=== PATIENT | male | born 1950 | race Caucasian/White ===

== ENCOUNTER → 2020-01-31 09:35 | Outpatient (BNVA) | payer MEDICARE, SELFPAY | PROVIDERS: PCP Nurse Practitioner Family; Visit Provider Surgery | DX: N62 Hypertrophy of breast (principal) | CPT/HCPCS: 99212 ==

== ENCOUNTER 2020-05-31 12:32 | Outpatient (REF) | payer MEDICARE, SELFPAY ==
--- NOTE | ~2020-05-31 | CT_ITS ---
EXAMINATION: CT CHEST SCREENING CLINICAL INFORMATION: Nicotine dependence COMPARISON: CT chest 10/24/2019 TECHNIQUE: Multidetector volumetric CT imaging of the chest is performed without contrast using low dose technique. Additional 2D coronal and sagittal reformatted images and axial 3D maximum intensity projection (MIP) images are generated on the CT workstation. This CT examination was performed using dose optimization techniques as appropriate, variously including the following: *Automated exposure control *Adjustment of mA and/or kV according to patient size (this includes techniques or standardized protocols for targeted exams where dose is matched to indication/reason for exam; i.e. extremities or head) *Use of iterative reconstruction technique DLP: 48 mGy-cm FINDINGS: LUNGS: There is paraseptal emphysema with bullous changes in both lung apices. There is bilateral apical pleural and parenchymal scarring. Dense right apical scarring is same size, 2.3 x 0.8 cm, as on the previous study on axial image 7/4. There is a 1.0 cm left apical density on axial image 7/4, previously measured 5 x 10 mm. There is a 3 mm nodule right upper lobe axial image 203/6, 3 mm noncalcified nodule left upper lobe, axial image 276/6, 3 mm calcified nodule left upper lobe anteriorly, axial image 273/6, 2 mm nodule left lower lobe, axial image 327/6, 3 mm and 2 mm nodule right middle lobe, axial image 36/6, 5 mm nodule right lower lobe likely intrabronchial lesion image 324/6, 3 mm nodules right lower lobe posterior segment axial image 422/6, 2 mm nodule right lower lobe, axial image 452/6, 4 mm nodule left lower lobe, axial image 450/6 and 4 mm nodule left lower lobe lateral segment of CP angle image 519/6. There are additional small subcentimeter nodules bilaterally which are stable. MEDIASTINUM: The thyroid lobes are symmetric and normal. Central trachea and the bronchi are widely patent. Heart size and the great vessels are normal caliber. There is no pericardial effusion. No abnormal lymphadenopathy seen. PLEURA: There is no pleural effusion. No pleural mass or thickening. AXILLA: There are small bilateral axillary lymph nodes. UPPER ABDOMEN: Visualized liver, spleen, pancreas and bilateral adrenal glands are unremarkable. There is a punctate 3 mm radiopaque calculi mid pole right kidney. OSSEOUS STRUCTURES: No lytic or sclerotic process seen. CT/CT lung screen follow up IMPRESSION: Stable bilateral pulmonary nodules. Bilateral apical pleural thickening and apical scarring and apical densities are stable. No additional findings seen. ASSESSMENT: Lung-RADS category 2 Benign RECOMMENDATION: Low dose annual CT chest.
== END 2020-05-31 12:33 | disposition home or self-care (01) ==
LOC: HO.CT 12:32
PROVIDERS: PCP Nurse Practitioner Family; Visit Provider Surgery
DX: Z12.2 Encounter for screening for malignant neoplasm of respiratory organs (principal); F17.210 Nicotine dependence, cigarettes, uncomplicated
CPT/HCPCS: 71250

== ENCOUNTER 2020-11-20 12:33 | Outpatient (REF) | payer MEDICARE, SELFPAY ==
--- NOTE | ~2020-11-20 | US_ITS ---
EXAMINATION: US SOFT TISSUE NECK CLINICAL INFORMATION: Enlarged lymph nodes. COMPARISON: None TECHNIQUE: Routine ultrasound of the neck was performed to evaluate lymph nodes. FINDINGS: There are multiple bilateral neck lymph nodes. The largest lymph node in the right upper neck measures 1.1 x 0.5 x 0.9 cm and in the left upper neck measures 1.64 x 0.5 x 0.7 cm. US/US soft tiss head and/or neck IMPRESSION: Bilateral multiple neck lymph nodes with a short axis dimension, within normal limits.
== END 2020-11-20 12:34 | disposition home or self-care (01) ==
LOC: HO.US 12:33
PROVIDERS: PCP Nurse Practitioner Family; Visit Provider Nurse Practitioner Family
DX: R59.9 Enlarged lymph nodes, unspecified (principal)
CPT/HCPCS: 76536

== ENCOUNTER 2021-03-07 07:00 | Outpatient (REF) | payer MEDICARE, SELFPAY ==
[2021-03-07 11:18] LABS: Appearance Urine CLEAR; Color Urine YELLOW; Glucose Urine UA NEG (NEG); Leukocyte Esterase Urine NEG (NEG); Nitrite Urine NEG (NEG); Specific Gravity - Urine 1.015 (1.005-1.025); UACC Culture Trigger NO; Urine Blood 2+ (NEG); Urine Ketones NEG (NEG); Urine Protein TRACE MG/DL (NEG-TRACE)
[2021-03-07 11:53] LABS: Alanine Aminotransferase 16 U/L (0-40); Albumin Level 3.9 g/dL (3.5-5.0); Alkaline Phosphatase 105 U/L (39-117); Anion Gap 7 (12-20); Aspartate Amino Transferase 15 U/L (5-37); Blood Urea Nitrogen 11 mg/dL (9-16); Calcium 8.9 mg/dL (8.4-10.2); Carbon Dioxide 31 mmol/L (22-29); Chloride 104 mmol/L (96-108); Cholesterol 108 mg/dL; Estimated Glomerular Filt Rate > 60; Glucose Fasting 85 mg/dL (60-99); HDL Cholesterol 36 mg/dL; LDL Cholesterol Calculated 59 mg/dl; Potassium 3.9 mmol/L (3.3-5.1); Sodium 138 mmol/L (135-145); Total Protein 6.3 g/dL (6.5-8.0); Triglycerides 69 mg/dL
[2021-03-07 11:57] LABS: Prostate Specific Antigen Scr 0.61 ng/mL (<0.05-4.0); TSH reflex Free T4 3.78 uIU/mL (0.32-4.0)
[2021-03-07 12:11] LABS: Renal Epithelial Cells Urine TRACE /LPF; Squamous Epithelial Cell Urine TRACE /LPF; WBC Urine 0-2 /HPF (0-4)
== END 2021-03-07 07:01 | disposition home or self-care (01) ==
LOC: HO.HMGCLDS 07:00
PROVIDERS: PCP Nurse Practitioner Family; Visit Provider Nurse Practitioner Family
DX: Z12.5 Encounter for screening for malignant neoplasm of prostate (principal); E78.5 Hyperlipidemia, unspecified
CPT/HCPCS: 36415; 80053; 80061; 81001; 84153; 84443

== ENCOUNTER → 2021-03-13 08:13 | Outpatient (BNVA) | payer MEDICARE, SELFPAY | PROVIDERS: PCP Nurse Practitioner Family; Referring Provider Nurse Practitioner Family; Visit Provider Internal Medicine | DX: I49.1 Atrial premature depolarization (principal); I49.8 Other specified cardiac arrhythmias; F17.210 Nicotine dependence, cigarettes, uncomplicated | CPT/HCPCS: 93005; 99202 ==

== ENCOUNTER → 2021-03-14 10:36 | Outpatient (REF) | payer MEDICARE, SELFPAY ==
--- NOTE | 2021-03-14 10:40 | HM_ITS ---
Conclusion: 1. Patient was monitored for total period of 3 days and 18 hours 2. Baseline was normal sinus rhythm with average heart of 79 beats per minute 3. No sustained atrial fibrillation noted. 3. No significant pauses or bradycardia noted 4. Very frequent short burst of SVTs with mostly 5-7 beats of SVTs, longest of 38 seconds. 5. Total of 82,082 PACs accounting for very frequent PACs accounting for 19.6% of total burden 6. No patient reported events MTDD
== END ==
LOC: HO.CARD 10:36
PROVIDERS: Visit Provider Internal Medicine
DX: I49.8 Other specified cardiac arrhythmias (principal)
CPT/HCPCS: 93242

== ENCOUNTER 2021-03-21 11:03 | Outpatient (REF) | payer MEDICARE, SELFPAY ==
[2021-03-21 14:00] LABS: Urine Cytology See Pathology rpt
[2021-03-21 14:22] LABS: Appearance Urine CLEAR; Color Urine YELLOW; Glucose Urine UA NEG (NEG); Leukocyte Esterase Urine NEG (NEG); Nitrite Urine NEG (NEG); PH 6.5 (5.0-8.0); Specific Gravity - Urine <= 1.005 (1.005-1.025); Urine Blood 1+ (NEG); Urine Ketones NEG (NEG); Urine Protein NEG (NEG-TRACE)
[2021-03-21 14:31] LABS: RBC Urine 0-2 /HPF (0); WBC Urine 0 /HPF (0-4)
== END 2021-03-21 11:04 | disposition home or self-care (01) ==
LOC: HO.HMGCLDS 11:03
PROVIDERS: PCP Nurse Practitioner Family; Visit Provider Nurse Practitioner Family
DX: R31.29 Other microscopic hematuria (principal)
CPT/HCPCS: 81001; 87086; 88112

== ENCOUNTER → 2021-04-25 08:11 | Outpatient (REF) | payer MEDICARE, SELFPAY ==
--- NOTE | 2021-04-25 08:13 | CA_ITS ---
Transthoracic Echocardiogram Patient (Last, First, Middle): Valerio Alvarez F Gender: Male Date of : 1950 Age: 70 Procedure Date: 04/25/2021 Procedure Type: Transthoracic Echocardiogram Location: OP Height: 187.96 cm Weight: 64.41 kg BSA: 1.88 m2 Heart Rate: bpm BP: 128 / 84 mmHg Drug Safety Physician: JSOE Referring MD: Nakul Crook MD [employer] Officer: Kamari Abraham MD Symptoms: I49.8 - Other specified cardiac arrhythmias Study Quality: Fair ECG Rhythm: Sinus bradycardia with ectopic Conclusions: - 1. Low normal LV systolic function with LVEF of 50-55% with impaired relaxation filling pattern 2. Normal cardiac valvular Dopplers 3. No gross pericardial effusion Findings Left Ventricle Normal left ventricular cavity size. There is normal left ventricular wall thickness. The left ventricular systolic function is low normal. The visually estimated ejection fraction is between 50-55%. Spectral Doppler is indicative of an impaired relaxation filling pattern. E/E prime ratio is between 8 and 15 consistent with indeterminate filling pressures. Right Ventricle Normal right ventricular cavity size and systolic function. Atria The left atrium is normal in size. There is no evidence of interatrial shunt. The right atrium is normal in size. Aortic Valve Normal aortic valve structure and function. There is no aortic valve stenosis. There is no aortic valve regurgitation. Mitral Valve Normal mitral valve structure and function. There is trace mitral valve regurgitation. There is no mitral valve stenosis. Pulmonic Valve The pulmonic valve was not well visualized. Tricuspid Valve Likely normal tricuspid valve structure and function. There is trace tricuspid valve regurgitation. Tricuspid regurgitation envelope is inadequate for calculation of right ventricular systolic pressure. Great Vessels All visible segments of the aorta are normal in size. The pulmonary artery was not well visualized. Venous The inferior vena cava is normal in size and collapses greater than 50% with inspiration. Pericardium/Pleural There is no evidence of pericardial effusion. Prior Study Comparison No prior study available for comparison. Measurements 2D Linear Measurements IVSd: 0.81 0.6-0.9/0.6-1.0 cm LVIDd: 4.74 3.9-5.3/4.2-5.9 cm LVIDd Index: 2.52 2.4-3.2/2.2-3.1 cm/m2 LVIDs: 3.50 2.0-3.6 cm LVPWd: 0.89 0.7-1.1 cm Ao Root: 3.50 2.1-3.5 cm LA Diam: 2.60 2.7-3.8/3.0-4.0 cm LAIDs Index: 1.38 1.5-2.3 cm/m2 LV Mass: 166.76 67-162/88-224 g LV Mass Index: 88.70 43-95/49-115 g/m2 LVOT Diam: 2.00 3.0+(-)1.3 cm 2D Systolic Function EF 4C: 48.30 >55% EF 2C: 53.50 >55% EF BiP: 52.10 >55% Mitral Valve MV Pk E: 0.54 MV PK A: 0.75 MV Decel Time: 387.00 E/A: 0.70 E'Lateral: 7.29 E'Medial: 5.00 E/E' Med: 10.80 E/E' Lat: 7.40 PHT: 113.00 MVA PHT: 1.95 Decel [place]: 1.40 Aortic Valve AoV Pk Irwin: 1.04 AoV Mn Irwin: 0.77 AoV VTI: 0.26 AoV Pk Grad: 4.00 Aov Mn Grad: 3.00 SABRA Cont.VTI: 2.01 LVOT LVOT Pk Irwin: 0.72 LVOT Mn Irwin: 0.51 LVOT VTI: 0.16 LVOT Pk Grad: 2.00 LVOT Mn Grad: 1.00 LVOT Diam: 2.00 LVOT Area: 3.14 Diastolic Function MV Pk E: 0.54 MV Pk A: 0.75 E/A: 0.70 E'Medial: 5.00 E/E' Med: 10.80 E' Laterial: 7.29 E/E' Lat: 7.40 Right Ventricle TAPSE (mm): 18.30 TVS' Irwin: 10.30 Tricuspid Valve TR Pk Irwin: 1.00 TR Pk Grad: 4.00 RA Press: 3.00 RVSP: 7.00 Great Vessels Aorta Ao Root-2D: 3.50 2.0-3.7 cm Ao Asc: 3.20 2.1-3.4 cm Ao Arch: 3.00 Updated in Other Vendor System with Status of Final Kamari Abraham MD electronically signed on 04/26/2021 4:06:19 PM with status of Final
== END ==
LOC: HO.CARD 08:11
PROVIDERS: Visit Provider Internal Medicine
DX: I49.8 Other specified cardiac arrhythmias (principal)
CPT/HCPCS: 93306

== ENCOUNTER → 2021-05-06 12:28 | Outpatient (BNVA) | payer MEDICARE, SELFPAY | PROVIDERS: PCP Nurse Practitioner Family; Referring Provider Nurse Practitioner Family; Visit Provider Internal Medicine | DX: I49.1 Atrial premature depolarization (principal); I49.8 Other specified cardiac arrhythmias; F17.200 Nicotine dependence, unspecified, uncomplicated | CPT/HCPCS: 99212 ==

== ENCOUNTER → 2021-05-24 08:32 | Outpatient (BNVA) | payer MEDICARE, SELFPAY | PROVIDERS: PCP Nurse Practitioner Family | DX: R31.29 Other microscopic hematuria (principal) | CPT/HCPCS: 99202 ==

== ENCOUNTER 2021-06-13 08:38 | Outpatient (REF) | payer MEDICARE, SELFPAY ==
--- NOTE | ~2021-06-13 | US_ITS ---
EXAMINATION: US RETROPERITONEAL LIMITED (RENAL ONLY) CLINICAL INFORMATION: Other microscopic hematuria. COMPARISON: CT abdomen and pelvis 04/20/2020. Renal ultrasound 09/22/2019 and 10/12/2018. KUB 07/25/2015. Ultrasound abdomen complete 06/12/2014. TECHNIQUE: Real-time imaging of the kidneys. FINDINGS: RIGHT KIDNEY: 10.7 x 4.1 x 4.3 cm (SAG x AP x TRV). The kidney is normal in size, contour, and echogenicity. Renal cortical thickness is normal. No calculi or focal parenchymal lesions. No hydronephrosis. LEFT KIDNEY: 11.1 x 4.0 x 4.2 cm (SAG x AP x TRV). The kidney is normal in size, contour, and echogenicity. Renal cortical thickness is normal. No calculi or focal parenchymal lesions. No hydronephrosis. US/US renal BI IMPRESSION: Kidneys bilaterally are normal. No evidence of focal mass, nephrolithiasis or hydronephrosis.
== END 2021-06-13 08:39 | disposition home or self-care (01) ==
LOC: HO.US 08:38
DX: R31.29 Other microscopic hematuria (principal)
CPT/HCPCS: 76775

== ENCOUNTER → 2021-07-26 08:31 | Outpatient (BNVA) | payer MEDICARE, SELFPAY | PROVIDERS: PCP Nurse Practitioner Family | DX: R31.29 Other microscopic hematuria (principal) | CPT/HCPCS: 99212 ==

== ENCOUNTER → 2021-08-21 14:53 | Outpatient (BNVA) | payer MEDICARE, SELFPAY | PROVIDERS: PCP Nurse Practitioner Family; Visit Provider Urology | DX: C67.9 Malignant neoplasm of bladder, unspecified (principal); Z87.442 Personal history of urinary calculi | CPT/HCPCS: 52000; 99212 ==

== ENCOUNTER 2021-08-27 07:54 | Outpatient (REF) | payer MEDICARE, SELFPAY ==
--- NOTE | ~2021-08-27 | CT_ITS ---
EXAMINATION: CT ABDOMEN AND PELVIS WITHOUT AND WITH CONTRAST CLINICAL INFORMATION: Gross hematuria. COMPARISON: None. TECHNIQUE: Noncontrast CT of the abdomen and pelvis is performed followed by split bolus contrast-enhanced images using 85 mL Omnipaque 350 contrast.? Postcontrast imaging is performed during the combined nephrogram and excretion phase. Sagittal and coronal reformatted images were obtained on the technologist's workstation for both the precontrast and postcontrast phases. This CT examination was performed using dose optimization techniques as appropriate, variously including the following: *Automated exposure control *Adjustment of mA and/or kV according to patient size (this includes techniques or standardized protocols for targeted exams where dose is matched to indication/reason for exam; i.e. extremities or head) *Use of iterative reconstruction technique DLP: 490 mGy-cm FINDINGS: LUNG BASES: The lung bases are clear. LIVER, GALLBLADDER, AND BILIARY TREE: The liver is normal in size, shape, and attenuation. No focal hepatic lesion or biliary ductal dilatation is present. The gallbladder is unremarkable with no evidence of radiopaque gallstones, gallbladder wall thickening, or obvious pericholecystic inflammatory changes. PANCREAS: Unremarkable. SPLEEN: Unremarkable. ADRENAL GLANDS: Unremarkable. KIDNEYS AND URETERS: On the non-contrast CT exam there is a 0.25 cm radiopaque calculi upper midpole right kidney. No additional radiopaque calculi seen. Postcontrast there are bilateral symmetrical nephrograms with normal cortical thickness. No cysts, enhancing solid mass seen. There is good opacification of bilateral kidney pelvis and ureter from excreted contrast without an intraluminal filling defect or narrowing. The majority of the right ureter is visualized in its entire length. The left kidney pelvis mid and distal left ureter are opacified with excretory urinary contrast without distention or irregularity. BLADDER: The bladder is normal size with excreted urinary contrast opacifying part of the bladder. There is no bladder wall thickening. No radiopaque calculi. No diverticula seen. GASTROINTESTINAL TRACT: There is scattered stool and gas seen throughout the colon without distention. The small bowel loops are unremarkable. The appendix is not visualized. The stomach is nondistended. No inflammatory process or free fluid seen. ABDOMINAL WALL: No significant hernia is appreciated. LYMPH NODES: Normal. VASCULAR: There are mild atherosclerotic changes of abdominal aorta without aneurysmal dilatation. No abnormal size retroperitoneal or pelvic lymph nodes seen. PELVIC VISCERA: No free fluid. No hernia or abnormal lymphadenopathy. The prostate gland is mildly enlarged. OSSEUS STRUCTURES: There are degenerative disc changes at L1-L2 disc level with mild ventral spondylosis. No lytic or sclerotic process seen. CT/CT urogram IMPRESSION: Small 0.25 cm nonobstructive radiopaque calculi upper/mid pole right kidney. No caliectasis or hydronephrosis. Rest of the CT urogram is unremarkable. The bladder is unremarkable. Mild constipation.
[2021-08-27 08:43] LABS: Blood Urea Nitrogen 15 mg/dL (9-16); Estimated Glomerular Filt Rate > 60
[2021-08-27] MEDS: iohexoL 350 MG/ML 100 ML INFUS..BTL IV (09:42)
== END 2021-08-27 07:55 | disposition home or self-care (01) ==
LOC: HO.CT 07:54
PROVIDERS: PCP Nurse Practitioner Family; Visit Provider Urology
DX: C67.9 Malignant neoplasm of bladder, unspecified (principal); R31.0 Gross hematuria; R39.15 Urgency of urination
CPT/HCPCS: 36415; 74178; 82565; 84520; Q9967

== ENCOUNTER → 2021-09-13 08:47 | Outpatient (REF) | payer MEDICARE, SELFPAY ==
--- NOTE | ~2021-09-13 | NM_ITS ---
Exercise Myocardial perfusion study Indication: Preoperative cardiovascular risk stratification 2 evaluate for myocardial ischemia Technique: The patient was brought in for an exercise perfusion study on 09/13/2021. Patient performed exercise as per Naseem protocol and was injected 25 mCi of sestamibi was given intravenously one target HR was achieved. Images were obtained using the SPECT gamma camera interlaced with the gating device. Images were obtained in supine position. Resting perfusion study was performed on 09/16/2021. Patient was administered 25 mCi of sestamibi intravenously at rest. Images were then obtained in supine position. Images obtained with and without CT attenuation. Total DLP 76 mGy-cm. Images were processed with the software and compared side to side in short axis, horizontal long axis and vertical long axis views. Findings: The stress perfusion study showed Nonattenuated images show normal uptake of radiotracer in all segments of LV myocardium. Attenuation corrected images show minimal thinning of the distal septum of the LV myocardium. . The gated study was not performed in stress study . LV cavity is normal in size. There is no transient ischemic dilation. Resting study shows no change in perfusion pattern compared to stress perfusion study. Gating at rest reveals normal systolic wall motion with ejection fraction at 59%. The findings are consistent with normal myocardial perfusion. NM/NM cardiolite stress test Impression: 1. Normal myocardial perfusion 2. Gated LVEF is 59% 3. Transient ischemic dilatation not present Stress EKG is negative for ischemia
--- NOTE | 2021-09-13 08:52 | CA_ITS ---
Acquisition Time: 2021-09-13 09:20:35 Total Exercise Time: 00:05:01 Test Indications: Abnormal ECG Medications: ASA ATORVASTATIN Protocol: GUALBERTO Max HR: 142 BPM 95% of Pred: 148 BPM Max BP: 150/078 mmHG Max Work Load: 7.0 METS Exercise stress test with exercise 5 min 1 sec of Gualberto protocol, acheiving > 90% MPHR, with mild sob, no chest discomfort, with frequent PACs and short atrial runs, with normotensive response to exercise, without EKG changes meeting criteria for ischemia. Nuclear images pending. Test reviewed with Dr Torres. Referred By: Nakul Crook Overread By: RYLAND BAUGH
--- NOTE | 2021-09-13 08:52 | HM_ITS ---
Conclusion: 1. Patient was monitored for total period of 2 days and 20 hours 2. Baseline was normal sinus rhythm with average heart of 74 beats per minute 3. Very frequent short burst of supraventricular tachycardia, suggestive of atrial tachycardia with longest episode lasting 51 beats. 4. Total of 49,009 at 37 PACs accounting for 17.5% of total beats account for frequent PACs 5. No patient reported events MTDD
== END ==
LOC: HO.CARD 08:47
PROVIDERS: Visit Provider Internal Medicine
DX: Z01.810 Encounter for preprocedural cardiovascular examination (principal); I49.8 Other specified cardiac arrhythmias
CPT/HCPCS: 78452; 93017; 93242; A9500

== ENCOUNTER → 2021-09-18 13:19 | Outpatient (BNVA) | payer MEDICARE, SELFPAY | PROVIDERS: PCP Nurse Practitioner Family; Visit Provider Urology | DX: C67.9 Malignant neoplasm of bladder, unspecified (principal) | CPT/HCPCS: Q3014 ==

== ENCOUNTER 2021-10-07 08:27 | Day surgery (SDC) | payer MEDICARE, SELFPAY ==
[2021-10-01 14:55] VITALS: BMI 18.8
--- NOTE | 2021-10-04 12:49 | P.CONAN_ITS ---
Documented by User: Rocío Potts NP 10/04/21 12:51 HPI - Anesthesia Eval Consult details Narrative: 70yo M for TUR Bladder Tumor with gemcitabine Cardiac cleared: Preop for TURBT with Dr Benjamin on 10/07/21. Recent cardiac testing showing no afib. He does have freq PACs and short SVT runs. Low dose Metoprolol was started. Echo shows low normal EF and Nuclear stress test shows normal myocardial perfusion imaging. He may proceed with surgery with low to intermediate cardiac risk. Continue Metoprolol without interruption. Aspirin can be held if needed, restart when clear by surgeon to do so. Call/ consult cardiology if needed. [facility] Active Problems Active Problems: All Active Problems (Updated 10/04/21 @ 10:31 by Nano Bedoya RN) H/O removal of neck cyst (Acute) Abnormal EKG (Acute) Dyslipidemia (Acute) PAC (premature atrial contraction) (Acute) Atrial arrhythmia (Acute) Smoking (Acute) Microscopic hematuria (Acute) Bladder cancer (Acute) Preoperative cardiovascular examination (Acute) Renal calculi (Acute) Past Medical History Medical History CLL (chronic lymphocytic leukemia) Dyslipidemia Family history of prostate cancer Gynecomastia History of renal calculi Immunocompromised Kidney stones PAC (premature atrial contraction) Renal calculi Thyroglossal duct cyst Family History Family History Father History of prostate cancer Surgical History Surgical History H/O colonoscopy Hx of lithotripsy Social History Social History Housing: House Alcohol intake: never Patient Tobacco Use Status: Current everyday Tobacco user Cigarette Packs Per Day: 1 Cigarettes Per Day: 20.0 Smoked in Last 30 Days: Yes e-Cigarette/Vaping Use: Currently Using (sometimes ) Patient Interested in Nicotine Replacement: No Second Hand Smoke Exposure: No Are you DNR?: No Advance Directives: No Advance Directives Information Provided: Yes Nutrition Risks: No Nutritional Risk service: No Current occupational status: retired Meds Allergies Allergy/AdvReac Type Severity Reaction Status Date / Time No Known Allergies Allergy Verified 10/07/21 08:56 [No Known Allergies*] Home Medications Medication Instructions Recorded Confirmed Last Taken Type aspirin 81 mg tablet,delayed 81 mg PO DAILY 01/31/20 10/01/21 09/27/21 History release (Adult Low Dose Aspirin) multivitamin (One-A-Day Essential 1 tab PO DAILY 03/04/21 10/01/21 Unknown History tablet) Exam Exam Date and Time: October 04, 2021 1249 Height,Weight and Vital Signs: Height 6 ft 2 in Weight 66.395 kg Narrative Narrative: EKG 03/2021 sinus rhythm at 77/Min; premature atrial contractions ECHO 04/2021 Conclusions: - 1. Low normal LV systolic function with LVEF of 50-55% with? ? impaired relaxation filling pattern? 2. Normal cardiac valvular Dopplers? 3. No gross pericardial effusion ? ? /NM cardiolite stress test 09/2021 Impression: ? 1.? Normal myocardial perfusion 2.? Gated LVEF is 59% 3. Transient ischemic dilatation not present ? Stress EKG is negative for ischemia Assessment and Plan Assessment Anesthesia Assessment: Chart Reviewed Documented by User: Sorin Ceballos MD 10/07/21 09:43 PMFSH Past Medical History Medical History CLL (chronic lymphocytic leukemia) Dyslipidemia Family history of prostate cancer Gynecomastia History of renal calculi Immunocompromised Kidney stones PAC (premature atrial contraction) Renal calculi Thyroglossal duct cyst Family History Family History Father History of prostate cancer Family history of problems with anesthesia: No Surgical History Surgical History H/O colonoscopy Hx of lithotripsy History of Problems with Anesthesia: No Social History Social History Housing: House Alcohol intake: never Patient Tobacco Use Status: Current everyday Tobacco user Cigarette Packs Per Day: 1 Cigarettes Per Day: 20.0 Smoked in Last 30 Days: Yes e-Cigarette/Vaping Use: Currently Using (sometimes ) Patient Interested in Nicotine Replacement: No Second Hand Smoke Exposure: No Are you DNR?: No Advance Directives: No Advance Directives Information Provided: Yes Nutrition Risks: No Nutritional Risk service: No Current occupational status: retired Meds Allergies Allergy/AdvReac Type Severity Reaction Status Date / Time No Known Allergies Allergy Verified 10/07/21 08:56 [No Known Allergies*] Home Medications Medication Instructions Recorded Confirmed Last Taken Type aspirin 81 mg tablet,delayed 81 mg PO DAILY 01/31/20 10/01/21 09/27/21 History release (Adult Low Dose Aspirin) multivitamin (One-A-Day Essential 1 tab PO DAILY 03/04/21 10/01/21 Unknown History tablet) Exam Airway Mallampati Class: I TM Dist: >3cm Neck ROM: Full Denture: Upper and Lower Heart: rrr Lungs: clear Assessment and Plan Final Anesthetic Review Family History of Problems with Anesthesia: No History of Problems with Anesthesia: No NPO: Yes ASA Class: III Final Preanesthetic Review: No Changes in Pt Med Stat, Meds/Allgs Chart Re viewed, Consent Obtained/Reviewed and Anes Risks/Benef Reviewed Patient Risk: Intermediate Procedure Risk: Low Anesthetic Plan Anesthetic Plan: GA Disposition: Standard PACU
[2021-10-07] VITALS (9 sets, daily range): BP systolic 131–151; BP diastolic 72–84; PULSE 44–61; RESP 18–20; TEMP 36.4–36.7; O2SAT 96–100
[2021-10-07] MEDS: Lactated Ringers 1,000 ML 100 ML IVCONT (09:00)
[2021-10-07 09:04] LABS: Hematocrit 47.2 % (42.0-52.0); Hemoglobin 15.1 g/dl (14.0-18.0); Mean Corpuscular Hemoglobin 31.7 pg (27.0-33.0); Mean Corpuscular Volume 99.2 fL (80.0-98.0); Mean Platelet Volume 9.2 fL (9.4-12.4); Platelet Count 257 X10*3/uL (160-400); Red Blood Count 4.76 X10*6/uL (4.60-5.80); Red Cell Distribution Width 12.8 % (11.0-16.0); White Blood Count 22.2 X10*3/uL (4.8-10.8)
[2021-10-07 09:28] LABS: Anion Gap 14 (12-20); Blood Urea Nitrogen 13 mg/dL (9-16); Calcium 9.1 mg/dL (8.4-10.2); Carbon Dioxide 28 mmol/L (22-29); Chloride 103 mmol/L (96-108); Creatinine Clr Calc Pharmacy 63.9; Estimated Glomerular Filt Rate > 60; Glucose Fasting 97 mg/dL (60-99); Potassium 4.2 mmol/L (3.3-5.1); Sodium 141 mmol/L (135-145)
--- NOTE | 2021-10-07 12:13 | MHC.SHP ---
Pre-Procedural Eval Section A Date of Service: 10/07/21 The patient is an INPATIENT: No Changes since office visit: No Cold of Flu in the past 2 weeks, No New Medical Problems, No Changes in Medication and No Patient answered all questions The History & Physical has been completed within 30 days and I have reviewed it.: No Section B Chief Complaint: Malignant neoplasm of bladder, Details of Present Illness: TURBT with gemcitabine Allergies: Allergies Allergy/AdvReac Type Severity Reaction Status Date / Time No Known Allergies Allergy Verified 10/07/21 08:56 [No Known Allergies*] Plan I have reviewed the history and physical and performed a pertinent physical examination on my patient. No changes have occurred unless specified.
--- NOTE | 2021-10-07 12:15 | PHA.MEDREC ---
Pharmacy Consult ? Medication Reconciliation Pharmacy has reviewed the medication reconciliation completed by nursing. Tracy García, IkeD
--- NOTE | 2021-10-07 12:56 | P.OP_ITS ---
Operative Note Operative Note Date of Service: 10/07/21 Narrative: PreOperative Diagnosis: bladder cancer Post Operative Diagnosis: bladder cancer Procedure: TURBT and Gemcitabine installation Surgeon: Dr Quentin Benjamin Anesthesia: general Indications for procedure: microscopic hematuria with cystoscopy in office that found 1.5 cm flat right bladder wall lesion and a number of satellite flat lesions. Procedure: After informed consent was verified the patient was brought to the operating room and placed in a supine position. anesthesia was administered per protocol. the patient was placed in a modified dorsal lithotomy position and prepped and draped in a sterile fashion. Safety pause time-out was performed. Antibiotics were confirmed. A 26 Tamazight continuous flow resectoscope was inserted per urethra. The visual obturator was used in order to minimize potential for urethral damage. Using the bipolar resectoscope lesion was removed from right bladder sidewall. He did have an obturator reflex which meant there was a small amount of bladder fat seen. Extensive cautery was performed over the posterior surface where supe rficial satellite changes with seen. At the completion the procedure the bladder was irrigated and tissue was removed which will be sent for analysis. At the completion of the procedure the bladder was irrigated. The cystoscope was removed. A [address] Vizcarra catheter was inserted into the bladder. 10 cc was placed in the balloon. 2 g of gemcitabine in 100 cc of normal saline was instilled into the bladder. The flow from the catheter was left clamped. The inflow to the catheter was attached to a 3 L normal saline bag. The patient tolerated the procedure well. They were extubated in the operating room and transferred in stable condition to the recovery area. Gemcitabine will remain in the bladder for 1 hour. At the completion of 1 hour the clamp will be removed. The gemcitabine will be allowed to egress to the urine collection bag. The 3 L bag of normal saline will be run at maximum rate through the bladder in order to dilute any residual gemcitabine. The Vizcarra cat heter will then be removed. Pathology: Bladder tumor Drains: Vizcarra catheter
== END 2021-10-07 15:48 ==
LOC: HO.SSS 08:28
PROVIDERS: Nurse Practitioner; PCP Nurse Practitioner Family; Visit Provider Urology
PROC: 0TBB8ZZ Excision of Bladder, Via Natural or Artificial Opening Endoscopic (ICD-10-PCS; CPT 52234; principal; 2021-10-07 10:10)
DX: C67.9 Malignant neoplasm of bladder, unspecified (principal); R31.29 Other microscopic hematuria; Z87.442 Personal history of urinary calculi; C91.10 Chronic lymphocytic leukemia of B-cell type not having achieved remission; E78.5 Hyperlipidemia, unspecified; D84.9 Immunodeficiency, unspecified; Z80.42 Family history of malignant neoplasm of prostate; F17.210 Nicotine dependence, cigarettes, uncomplicated
CPT/HCPCS: 52234; 51720; 36415; 80048; 85027; 88307; J1100; J1956; J2250; J2405; J3010; J9201

== ENCOUNTER → 2021-10-22 10:33 | Outpatient (BNVA) | payer MEDICARE, SELFPAY | PROVIDERS: PCP Nurse Practitioner Family; Visit Provider Urology | DX: C67.9 Malignant neoplasm of bladder, unspecified (principal); N20.0 Calculus of kidney | CPT/HCPCS: 99212 ==

== ENCOUNTER → 2021-11-05 12:19 | Outpatient (BNVA) | payer MEDICARE, SELFPAY | PROVIDERS: PCP Nurse Practitioner Family; Referring Provider Nurse Practitioner Family; Visit Provider Internal Medicine | DX: I49.1 Atrial premature depolarization (principal); I49.8 Other specified cardiac arrhythmias; F17.210 Nicotine dependence, cigarettes, uncomplicated | CPT/HCPCS: 99212 ==

== ENCOUNTER 2021-12-18 07:37 | Outpatient (REF) | payer MEDICARE, SELFPAY ==
[2021-12-18 11:22] LABS: Basophils Absolute Auto 0.1 X10*3/uL (0.0-0.2); Basophils Percent Auto 0.5 % (0-2); Eosinophils Absolute Auto 0.5 X10*3/uL (0.0-0.4); Eosinophils Percent Auto 2.2 % (0-4); Hematocrit 43.4 % (42.0-52.0); Hemoglobin 13.9 g/dl (14.0-18.0); Imm Gran Abs Auto 0.06 X10*3/uL (0.00-0.03); Imm Gran Pct Auto 0.3 % (0.0-0.4); Lymphocytes Percent Auto 74.5 % (20-40); MANUAL DIFF FLAG SCAN; Mean Corpuscular Hemoglobin 32.6 pg (27.0-33.0); Mean Corpuscular Volume 101.6 fL (80.0-98.0); Mean Platelet Volume 9.5 fL (9.4-12.4); Monocytes Percent Auto 4.3 % (2-11); Neutrophils Absolute Auto 4.1 x10*3/uL (2.0-8.3); Neutrophils Percent Auto 18.2 % (45-73); Platelet Count 246 X10*3/uL (160-400); Red Blood Count 4.27 X10*6/uL (4.60-5.80); Red Cell Distribution Width 14.8 % (11.0-16.0); SCAN SMEAR FLAG 1; White Blood Count 22.3 X10*3/uL (4.8-10.8)
[2021-12-18 11:23] LABS: Lymphocytes Absolute Auto 16.6 X10*3/uL (1.2-4.9)
[2021-12-18 11:38] LABS: Alanine Aminotransferase 23 U/L (0-40); Albumin Level 4.1 g/dL (3.5-5.0); Alkaline Phosphatase 95 U/L (39-117); Anion Gap 13 (12-20); Aspartate Amino Transferase 23 U/L (5-37); Bilirubin Total 1.1 mg/dL (0.0-1.0); Blood Urea Nitrogen 12 mg/dL (9-16); Carbon Dioxide 27 mmol/L (22-29); Chloride 104 mmol/L (96-108); Cholesterol 106 mg/dL; Estimated Glomerular Filt Rate > 60; Glucose Fasting 97 mg/dL (60-99); HDL Cholesterol 40 mg/dL; LDL Cholesterol Calculated 52 mg/dl; Potassium 4.4 mmol/L (3.3-5.1); Sodium 140 mmol/L (135-145); Total Protein 6.4 g/dL (6.5-8.0); Triglycerides 71 mg/dL
[2021-12-18 11:45] LABS: SLIDE REVIEW VERIFIED
[2021-12-18 11:52] LABS: TSH reflex Free T4 3.18 uIU/mL (0.32-4.0)
== END 2021-12-18 07:38 | disposition home or self-care (01) ==
LOC: HO.HMGCLDS 07:37
PROVIDERS: PCP Nurse Practitioner Family; Visit Provider Nurse Practitioner Family
DX: C67.9 Malignant neoplasm of bladder, unspecified (principal); F17.200 Nicotine dependence, unspecified, uncomplicated
CPT/HCPCS: 36415; 80053; 80061; 84443; 85025

== ENCOUNTER 2022-01-28 13:17 | Outpatient (REF) | payer MEDICARE, SELFPAY ==
[2022-01-29 12:31] LABS: Urine Cytology See Pathology rpt
== END 2022-01-28 13:18 | disposition home or self-care (01) ==
LOC: HO.LAB 13:17
PROVIDERS: Visit Provider Urology
DX: R31.29 Other microscopic hematuria (principal); C67.9 Malignant neoplasm of bladder, unspecified
CPT/HCPCS: 52000; 88112

== ENCOUNTER 2022-03-28 10:23 | Outpatient (REF) | payer MEDICARE, SELFPAY ==
--- NOTE | ~2022-03-28 | CT_ITS ---
EXAMINATION: CT CHEST SCREENING CLINICAL INFORMATION: Nicotine dependence. 40 pack years, one pack per day. Current smoker. COMPARISON: CT lung screening 05/31/2020. TECHNIQUE: Multidetector volumetric CT imaging of the chest is performed without contrast using low dose technique. Additional 2D coronal and sagittal reformatted images and axial 3D maximum intensity projection (MIP) images are generated on the CT workstation. This CT examination was performed using dose optimization techniques as appropriate, variously including the following: *Automated exposure control *Adjustment of mA and/or kV according to patient size (this includes techniques or standardized protocols for targeted exams where dose is matched to indication/reason for exam; i.e. extremities or head) *Use of iterative reconstruction technique DLP: 49 mGy-cm FINDINGS: LUNGS: There are diffuse emphysematous changes of both lungs with bullous changes in both upper lobes with parenchymal scarring. There is dense apical pleural scarring similar to previous study. There is 1 cm left apical parenchymal density similar to previous study on axial image 73/6, stable. A noncalcified 3 nodule right upper lobe axial image 223/6. There are additional small calcified and noncalcified nodules seen in left lung which are stable. 2 mm nodules are seen in the right middle lobe axial image 351/6, stable. Slightly larger nodule measuring 5 mm left lower lobe axial image 472/6 and a 5 mm nodule left lung base lateral segment image 539/6; all are stable. No new nodules seen. MEDIASTINUM: The thyroid lobes are slightly asymmetrical but otherwise unremarkable. The central trachea and the bronchi are widely patent. The heart size and the great vessels are normal caliber. No pericardial effusion seen. No abnormal size mediastinal or hilar lymph nodes seen. CORONARY ARTERY CALCIFICATION: Trace coronary artery calcifications are present. PLEURA: There is no pleural effusion. No pleural mass or thickening. AXILLA: No lymphadenopathy. UPPER ABDOMEN: Visualized liver, spleen, pancreas and bilateral adrenal glands are unremarkable. OSSEOUS STRUCTURES: No lytic or sclerotic process seen. CT/CT lung screening IMPRESSION: 1. Diffuse emphysema with bullous changes in both upper lobes. 2. There are multiple bilateral pulmonary nodules which are stable. 3. No abnormal mediastinal or axillary lymph nodes. ASSESSMENT: Lung-RADS category 2: Benign RECOMMENDATION: Low-dose annual CT chest.
== END 2022-03-28 10:24 | disposition home or self-care (01) ==
LOC: HO.CT 10:23
PROVIDERS: Visit Provider Physician Assistant Medical
DX: Z12.2 Encounter for screening for malignant neoplasm of respiratory organs (principal); F17.210 Nicotine dependence, cigarettes, uncomplicated
CPT/HCPCS: 71271

== ENCOUNTER → 2022-04-29 12:27 | Outpatient (BNVA) | payer MEDICARE, SELFPAY | PROVIDERS: PCP Nurse Practitioner Family; Referring Provider Nurse Practitioner Family; Visit Provider Internal Medicine | DX: I49.1 Atrial premature depolarization (principal); I49.8 Other specified cardiac arrhythmias; F17.210 Nicotine dependence, cigarettes, uncomplicated | CPT/HCPCS: 93005; 99212 ==

== ENCOUNTER 2022-04-30 10:33 | Outpatient (REF) | payer MEDICARE, SELFPAY ==
[2022-04-30 17:12] LABS: Urine Cytology See Pathology rpt
== END 2022-04-30 10:34 | disposition home or self-care (01) ==
LOC: HO.LAB 10:33
PROVIDERS: PCP Nurse Practitioner Family; Visit Provider Urology
DX: C67.9 Malignant neoplasm of bladder, unspecified (principal); Z87.442 Personal history of urinary calculi
CPT/HCPCS: 52000; 88112

== ENCOUNTER 2022-05-13 07:24 | Outpatient (REF) | payer MEDICARE, SELFPAY ==
[2022-05-13 11:43] LABS: Basophils Absolute Auto 0.1 X10*3/uL (0.0-0.2); Basophils Percent Auto 0.6 % (0-2); Eosinophils Absolute Auto 0.4 X10*3/uL (0.0-0.4); Eosinophils Percent Auto 2.1 % (0-4); Hematocrit 42.9 % (42.0-52.0); Hemoglobin 14.1 g/dl (14.0-18.0); Imm Gran Abs Auto 0.04 X10*3/uL (0.00-0.03); Imm Gran Pct Auto 0.2 % (0.0-0.4); Lymphocytes Percent Auto 76.1 % (20-40); MANUAL DIFF FLAG SCAN; Mean Corpuscular HGB Conc 32.9 g/dl (31.0-36.0); Mean Corpuscular Hemoglobin 32.4 pg (27.0-33.0); Mean Corpuscular Volume 98.6 fL (80.0-98.0); Mean Platelet Volume 9.5 fL (9.4-12.4); Monocytes Absolute Auto 0.8 X10*3/uL (0.1-1.2); Neutrophils Absolute Auto 3.6 x10*3/uL (2.0-8.3); Platelet Count 260 X10*3/uL (160-400); Red Blood Count 4.35 X10*6/uL (4.60-5.80); Red Cell Distribution Width 13.4 % (11.0-16.0); SCAN SMEAR FLAG 1
[2022-05-13 12:03] LABS: Appearance Urine Clear; Color Urine Yellow; Glucose Urine UA Negative (Negative); Leukocyte Esterase Urine Negative (Negative); Nitrite Urine Negative (Negative); PH 6.5 (5.0-9.0); Specific Gravity - Urine 1.015 (1.005-1.025); UMIC TRIGGER UACC YES; Urine Blood Small (1+) (Negative); Urine Ketones Negative (Negative); Urine Protein Negative (Neg-Trace)
[2022-05-13 12:08] LABS: Alanine Aminotransferase 24 U/L (0-40); Albumin Level 3.9 g/dL (3.5-5.0); Alkaline Phosphatase 93 U/L (39-117); Anion Gap 8 (12-20); Aspartate Amino Transferase 24 U/L (5-37); Bilirubin Total 1.4 mg/dL (0.0-1.0); Blood Urea Nitrogen 13 mg/dL (9-16); Calcium 8.7 mg/dL (8.4-10.2); Carbon Dioxide 31 mmol/L (22-29); Chloride 105 mmol/L (96-108); Cholesterol 98 mg/dL; Estimated Glomerular Filt Rate > 60; Glucose Fasting 93 mg/dL (60-99); HDL Cholesterol 37 mg/dL; LDL Cholesterol Calculated 50 mg/dl; Potassium 4.2 mmol/L (3.3-5.1); Sodium 140 mmol/L (135-145); Total Protein 5.8 g/dL (6.5-8.0); Triglycerides 55 mg/dL
[2022-05-13 12:16] LABS: Prostate Specific Antigen Scr 0.69 ng/mL (<0.05-4.0); TSH reflex Free T4 2.54 uIU/mL (0.32-4.0)
[2022-05-13 12:31] LABS: Bacteria Urine None Seen (None Seen); Hyaline Casts Urine 0-2 /LPF (0-2); Squamous Epithelial Cell Urine 0-2 /HPF (0-2); WBC Urine 0-5 /HPF (0-5)
[2022-05-13 13:06] LABS: SLIDE REVIEW VERIFIED
== END 2022-05-13 07:25 | disposition home or self-care (01) ==
LOC: HO.HMGCLDS 07:24
PROVIDERS: PCP Nurse Practitioner Family; Visit Provider Nurse Practitioner Family
DX: I10 Essential (primary) hypertension (principal); Z12.5 Encounter for screening for malignant neoplasm of prostate
CPT/HCPCS: 36415; 80053; 80061; 81001; 81003; 84153; 84443; 85025

== ENCOUNTER 2022-11-24 08:41 | Outpatient (AMB) | payer MEDICARE, SELFPAY ==
--- NOTE | 2022-11-24 08:47 | MHC.PC.OV ---
Vital Signs 11/24/22 08:48 Height 6 ft 2 in Weight 141 lb BMI 18.1 BP 110/74 Blood Pressure Location Rt brachial Position Sitting Pulse 50 Pulse Source Pulse Oximeter Pulse Oximetry (%) 100 Oxygen Delivery Method Room Air Intake Visit Reasons: 4 month follow up Allergies No Known Allergies [No Known Allergies*] Allergy (Verified 11/24/22 08:50) Tobacco use date assessed: 11/24/22 Fall risk assessment: No Falls in past year Last assessed Fall Risk: 11/24/22 Dental Screening Dental Screen Date: 11/24/22 Did you have a dental visit in the last 12 months?: No Did you have a dental problem in the last 6 months where you did not have access to dental care?: No Was dental information given to patient?: No HPI 4 month follow up HPI Details HTN: Blood pressure is stable, mostly stable at home as well. Managed with amlodipine 5mg and metoprolol 25mg. Will have pt continue to monitor his BP at home. Denies chest pain, shortness of breath, headache, dizziness, and blurred vision. Pt continues to smoke, has low-dose lung CTs yearly. He does follow up with cardiology. Will order carotid US due to hx of smoking, htn, and dyslipidemia. [facility] Medical History CLL (chronic lymphocytic leukemia) Dyslipidemia Family history of prostate cancer Gynecomastia History of renal calculi Immunocompromised Kidney stones PAC (premature atrial contraction) Renal calculi Thyroglossal duct cyst Surgical History H/O colonoscopy History of bladder surgery Hx of lithotripsy Family History Father History of prostate cancer Social History Housing: House Alcohol intake: never Patient Tobacco Use Status: Current everyday Tobacco user Tobacco use type: Cigarette Cigarette Packs Per Day: 1 Cigarettes Per Day: 20.0 e-Cigarette/Vaping Use: Currently Using (sometimes ) Second Hand Smoke Exposure: No service: No Current occupational status: retired Cognitive needs: No Hearing needs: No Vision needs: No Questionnaire Thrive Questionnaire Date Thrive assessed: 03/20/22 MOLLY-7 AMB Questionnaire MOLLY-7 Date MOLLY - 7 assessed: 03/20/22 Source: Developed by Drs. Darren Pepper, Natalie Bhatia, Tk Neumann and colleagues, with an educational ralph from [employer]. Review of Systems Const Reports as per HPI Physical exam (Primary Care) Vital Signs: Last Vital Signs Pulse 50 11/24/22 08:48 BP 110/74 11/24/22 08:48 Pulse Ox 100 11/24/22 08:48 Oxygen Delivery Method Room Air 11/24/22 08:48 BMI result Body Mass Index 18.1 Tobacco/Smoking Status: Tobacco use Status Tobacco use date assessed 11/24/22 11/24/22 08:55 Patient Tobacco Use Status Current everyday Tobacco 11/24/22 08:55 Tobacco use type Cigarette 11/24/22 08:55 e-Cigarette/Vaping Use Currently Using (sometimes ) 11/24/22 08:55 Thrive Assessment: Date of Thrive Assessment Date Thrive assessed 03/20/22 11/24/22 08:55 Const General: cooperative Orientation/consciousness: patient oriented x3 Resp Auscultation: clear to auscultation bilaterally (dim bilat) Cardio Rate: regular rate Rhythm: regular rhythm Heart sounds: S1 normal heart sound present, S2 normal heart sound present and no murmurs Neuro General: patient oriented x3 Psych Appearance: grossly normal Mental Status: mental status grossly normal Speech and movement: Normal speech and movement present Affect: normal affect Attitude: cooperative Thought process: Normal thought process present Thought content: Normal thought content present Insight: Good insight present (Psych) Judgement: Good judgement present (Psych) Assessment and Plan Assessment & Plan (1) Dyslipidemia: Code(s): E78.5 - Hyperlipidemia, unspecified (2) Smoking: Code(s): F17.200 - Nicotine dependence, unspecified, uncomplicated (3) HTN (hypertension): Code(s): I10 - Essential (primary) hypertension Plan The patient agreed to the use of a medical service technician for this encounter. Scribed for JACK Avendaño by Reny Shaw medical service technician, on 11/24/2022 at 09:00 EST. Orders: Orders US carotid duplex BI Today E78.5 - Hyperlipidemia, unspecified, F17.200 - Nicotine dependence, unspecified, uncomplicated, I10 - Essential (primary) hypertension AMB EKG-In Office Today E78.5 - Hyperlipidemia, unspecified, F17.200 - Nicotine dependence, unspecified, uncomplicated, I10 - Essential (primary) hypertension Coding Level of Care Code Est Pt Level 3 (02207) Diagnoses Dyslipidemia E78.5 Smoking F17.200 HTN (hypertension) I10
[2022-11-24 08:48] VITALS: BP 110/74; PULSE 50; O2SAT 100; BMI 18.1
== END 2022-11-24 09:28 | disposition home or self-care (01) ==
PROVIDERS: Visit Provider Nurse Practitioner Family
DX: E78.5 Hyperlipidemia, unspecified (principal); F17.200 Nicotine dependence, unspecified, uncomplicated; I10 Essential (primary) hypertension
CPT/HCPCS: 99213

== ENCOUNTER → 2023-04-13 10:04 | Outpatient (REF) | payer MEDICARE, SELFPAY ==
--- NOTE | 2023-04-13 10:29 | HM_ITS ---
* Total monitoring time 3 days. * Underlying rhythm is atrial fibrillation. Average ventricular rate 73/Min. Range 43-132/Min. * Rare ventricular ectopy. * No significant pauses or AV blocks. * No patient markers or diary events. * Overall, well controlled atrial fibrillation. MTDD
== END ==
LOC: HO.CARD 10:04
PROVIDERS: PCP Nurse Practitioner Family; Visit Provider Internal Medicine
DX: R00.2 Palpitations (principal); I49.1 Atrial premature depolarization
CPT/HCPCS: 93242

== ENCOUNTER → 2023-04-13 10:29 | Outpatient (BNV) | payer MEDICARE, SELFPAY | PROVIDERS: PCP Nurse Practitioner Family; Visit Provider Internal Medicine | DX: I48.91 Unspecified atrial fibrillation (principal) | CPT/HCPCS: 93244 ==

== ENCOUNTER 2023-04-22 12:23 | Outpatient (REF) | payer MEDICARE, SELFPAY ==
[2023-04-22 14:27] LABS: Basophils Absolute Auto 0.1 X10*3/uL (0.0-0.2); Basophils Percent Auto 0.6 % (0-2); Eosinophils Absolute Auto 0.4 X10*3/uL (0.0-0.4); Eosinophils Percent Auto 2.3 % (0-4); Hematocrit 43.7 % (42.0-52.0); Hemoglobin 14.6 g/dl (14.0-18.0); Imm Gran Abs Auto 0.03 X10*3/uL (0.00-0.03); Imm Gran Pct Auto 0.2 % (0.0-0.4); Lymphocytes Percent Auto 70.8 % (20-40); MANUAL DIFF FLAG SCAN; Mean Corpuscular HGB Conc 33.4 g/dl (31.0-36.0); Mean Corpuscular Hemoglobin 32.2 pg (27.0-33.0); Mean Corpuscular Volume 96.5 fL (80.0-98.0); Monocytes Absolute Auto 0.8 X10*3/uL (0.1-1.2); Monocytes Percent Auto 4.4 % (2-11); NRBC Pct Auto 0.2 /100WBC (0.0-0.2); Neutrophils Absolute Auto 4.1 x10*3/uL (2.0-8.3); Neutrophils Percent Auto 21.7 % (45-73); Platelet Count 253 X10*3/uL (160-400); Red Blood Count 4.53 X10*6/uL (4.60-5.80); Red Cell Distribution Width 13.3 % (11.0-16.0); SCAN SMEAR FLAG 1; White Blood Count 18.8 X10*3/uL (4.8-10.8)
[2023-04-22 14:28] LABS: Lymphocytes Absolute Auto 13.3 X10*3/uL (1.2-4.9)
[2023-04-22 14:59] LABS: Anion Gap 8 (12-20); Blood Urea Nitrogen 13 mg/dL (9-16); Calcium 8.9 mg/dL (8.4-10.2); Carbon Dioxide 30 mmol/L (22-29); Chloride 106 mmol/L (96-108); Estimated Glomerular Filt Rate > 60; Glucose Random 89 mg/dL (60-115); Potassium 4.1 mmol/L (3.3-5.1); Sodium 140 mmol/L (135-145)
[2023-04-22 15:01] LABS: SLIDE REVIEW VERIFIED
== END 2023-04-22 12:24 | disposition home or self-care (01) ==
LOC: HO.LAB 12:23
PROVIDERS: Visit Provider Nurse Practitioner
DX: I48.91 Unspecified atrial fibrillation (principal); I10 Essential (primary) hypertension; I49.8 Other specified cardiac arrhythmias; F17.210 Nicotine dependence, cigarettes, uncomplicated; Z79.899 Other long term (current) drug therapy
CPT/HCPCS: 36415; 80048; 85025; 93005; 99212

== ENCOUNTER 2023-04-22 12:23 | Outpatient (AMB) | payer MEDICARE, SELFPAY ==
[2023-04-22 13:09] VITALS: BP 120/70; PULSE 58; BMI 18.2
--- NOTE | 2023-04-22 13:09 | A.OFFVIS_ITS ---
Intake Vital Signs 04/22/23 13:09 Height 6 ft 2 in Weight 141 lb 8.588 oz BMI 18.2 BP 120/70 Blood Pressure Location Lt brachial Position Sitting Pulse 58 Intake Visit Reasons: 1 yr f/up after holter Intake Note: pt its here for a 1 yr f/up after holter pt states that he its doing fine. Network Analyst Required: No Accompanied by: Self / Same As Patient Allergies No Known Allergies [No Known Allergies*] Allergy (Verified 04/22/23 13:20) Medication List - Last Reconciled 04/22/23 by Ute [place] NP amlodipine 5 mg PO DAILY aspirin (Adult Low Dose Aspirin) 81 mg PO DAILY atorvastatin 20 mg PO DAILY 90 days metoprolol succinate ER (Toprol XL) 25 mg PO DAILY multivitamin (One-A-Day Essential tablet) 1 tab PO DAILY pyridoxine (vitamin B6) 100 mg PO DAILY 90 days HPI HPI Comments History of Present Illness Details 72-year-old male presents today for a fo llow-up after holter monitor. He has a medical history of bladder cancer, chronic lymphocytic leukemia, hypertension, and cigarette smoking. His holter monitor on 04/13/23 was for three days and had an underlying rhythm of atrial fibrillation. Average rate of 73/min. [place] of atrial fibrillation was 100%. He denies any palpitations, syncope, bleeding concerns, chest pain, or shortness of breath. [facility] Medical History Atrial fibrillation PAC (premature atrial contraction) Renal calculi History of renal calculi Family history of prostate cancer Immunocompromised CLL (chronic lymphocytic leukemia) Gynecomastia Kidney stones Dyslipidemia Thyroglossal duct cyst Surgical History History of bladder surgery Hx of lithotripsy H/O colonoscopy Family History Father History of prostate cancer Social History Housing: House Alcohol intake: never Patient Tobacco Use Status: Current everyday Tobacco user Tobacco use type: Cigarette Cigarette Packs Per Day: 1 Cigarettes Per Day: 20.0 e-Cigarette/Vaping Use: Currently Using (sometimes ) Second Hand Smoke Exposure: No service: No Current occupational status: retired Cognitive needs: No Hearing needs: No Vision needs: No Review of Systems Const Denies chills, Denies fatigue, Denies fever(s), Denies frequent falls, Denies weakness, Denies weight gain and Denies weight loss ENT Denies dizziness Card Denies chest pain, Denies leg edema, Denies lightheadedness, Denies palpitations, Denies dyspnea and Denies dyspnea on exertion Resp Denies cough, Denies dyspnea and Denies dyspnea on exertion GI Denies hematochezia Musc Denies abnormal gait, Denies muscle weakness, Denies numbness, Denies radiating pain into limb and Denies tingling Neuro Denies abnormal gait, Denies dizziness, Denies frequent falls, Denies numbness, Denies tingling and Denies weakness Endo Denies fatigue and Denies palpitations Physical Exam Vital Signs: Last Vital Signs Pulse 58 04/22/23 13:09 BP 120/70 04/22/23 13:09 BMI result Body Mass Index 18.2 Office Procedures EKG Details: EKG today: atrial fibrillation with slow ventricular response. Rate 58 bpm. QRS 90ms. QTC 410ms. New onset atrial fibrillation. [id number]-[id number], Complete Results Reviewed Results Reviewed: Holter * Total monitoring time 3 days. * Underlying rhythm is atrial fibrillation. Average ventricular rate 73/Min. Range 43-132/Min. * Rare ventricular ectopy. * No significant pauses or AV blocks. * No patient markers or diary events. * Overall, well controlled atrial fibrillation. Assessment & Plan Assessment & Plan (1) Atrial fibrillation: Code(s): I48.91 - Unspecified atrial fibrillation Plan: 3 day holter on 04/13/2023 showed 100% burden of atrial fibrillation. This is a new finding. Going to get lab work to start anticoagulation. Once lab work is obtained he will stop aspirin 81mg and start a DOAC. Avoid NSAIDs. Risk of stroke and the importance of anticoagulation reviewed. He is on metoprolol succinate 25mg. (2) Smoking: Code(s): F17.200 - Nicotine dependence, unspecified, uncomplicated Plan: Advised complete smoking cessation. (3) Atrial arrhythmia: Code(s): I49.8 - Other specified cardiac arrhythmias Plan: Holer 09/2021 showed frequent short burst of STV an frequent PACs accounting for 17.5% of total beats. Holter 04/13/23 showed atrial fibrillation. Orders: Orders Complete Blood Count Auto Diff 04/22/23 I48.91 - Unspecified atrial fibrillation Basic Metabolic Panel 04/22/23 I48.91 - Unspecified atrial fibrillation Coding Level of Care Code Est Pt Level 3 (33569) Diagnoses Atrial fibrillation I48.91 Smoking F17.200 Atrial arrhythmia I49.8 CPT Codes EKG - CPT: 52506-[id number], Complete ([id number])
== END 2023-04-22 14:41 | disposition home or self-care (01) ==
PROVIDERS: Visit Provider Nurse Practitioner
DX: I48.91 Unspecified atrial fibrillation (principal)
CPT/HCPCS: 93010; 99213

== ENCOUNTER 2023-04-23 14:05 | Outpatient (REF) | payer MEDICARE, SELFPAY ==
[2023-04-23 15:03] LABS: INTERNATIONAL NORM RATIO 0.9 (0.9-1.1); Prothrombin Time 11.5 SEC (11.1-13.3)
== END 2023-04-23 14:06 | disposition home or self-care (01) ==
LOC: HO.LAB 14:05
PROVIDERS: Internal Medicine; PCP Nurse Practitioner Family; Visit Provider Nurse Practitioner
DX: I48.91 Unspecified atrial fibrillation (principal)
CPT/HCPCS: 36415; 85610

== ENCOUNTER 2023-05-11 07:45 | Outpatient (REF) | payer MEDICARE, SELFPAY ==
--- NOTE | ~2023-05-11 | CT_ITS ---
EXAMINATION: CT CHEST SCREENING CLINICAL INFORMATION: Current smoker. COMPARISON: Prior lung screening 03/28/2022 TECHNIQUE: Multidetector volumetric CT imaging of the chest is performed without contrast using low dose technique. Additional 2D coronal and sagittal reformatted images and axial 3D maximum intensity projection (MIP) images are generated on the CT workstation. This CT examination was performed using dose optimization techniques as appropriate, variously including the following: *Automated exposure control *Adjustment of mA and/or kV according to patient size (this includes techniques or standardized protocols for targeted exams where dose is matched to indication/reason for exam; i.e. extremities or head) *Use of iterative reconstruction technique DLP: 49 mGy-cm FINDINGS: LUNGS: Severe emphysematous changes are present along with biapical pleural-parenchymal scarring with scattered calcified granulomas are present along with scattered noncalcified micronodules, none larger than 4 mm - for example, right lower lobe anterior (5:438). [place] images of all have been saved. Compared to the 03/28/2022 study, all lung nodules are stable. MEDIASTINUM: The mediastinum is normal. CORONARY ARTERY CALCIFICATION: Mild. PLEURA: There is no pleural effusion. No pleural mass or thickening. AXILLA: No lymphadenopathy. UPPER ABDOMEN: Unremarkable OSSEOUS STRUCTURES: Unremarkable. CT/CT lung screening IMPRESSION: Unchanged micronodules with no evidence to suggest malignancy. ASSESSMENT: Lung-RADS category 2: Benign RECOMMENDATION: Routine annual low-dose CT screening in 12 months.
== END 2023-05-11 07:46 | disposition home or self-care (01) ==
LOC: HO.CT 07:45
PROVIDERS: PCP Nurse Practitioner Family; Visit Provider Nurse Practitioner Family
DX: Z12.2 Encounter for screening for malignant neoplasm of respiratory organs (principal); F17.210 Nicotine dependence, cigarettes, uncomplicated
CPT/HCPCS: 71271

== ENCOUNTER 2023-05-25 09:31 | Outpatient (AMB) | payer MEDICARE, SELFPAY ==
--- NOTE | 2023-05-25 09:33 | MHC.PC.OV ---
Vital Signs 05/25/23 09:34 Height 6 ft 2 in Weight 142 lb BMI 18.2 BP 132/76 Blood Pressure Location Lt brachial Position Sitting Pulse 59 Pulse Source Pulse Oximeter Pulse Oximetry (%) 98 Oxygen Delivery Method Room Air Intake Visit Reasons: 6 Month follow up Intake Note: pt is here for 6 month follow up Manager Dialysis Required: No Accompanied by: Self / Same As Patient Allergies No Known Allergies [No Known Allergies*] Allergy (Verified 05/25/23 09:51) Medication List - Last Reconciled 05/25/23 by JACK Miller amlodipine 5 mg PO DAILY atorvastatin 20 mg PO DAILY 90 days metoprolol succinate ER 25 mg PO DAILY multivitamin (One-A-Day Essential tablet) 1 tab PO DAILY pyridoxine (vitamin B6) 100 mg PO DAILY 90 days Tobacco use date assessed: 05/25/23 Fall risk assessment: No Falls in past year Last assessed Fall Risk: 05/25/23 Dental Screening Dental Screen Date: 05/25/23 Did you have a dental visit in the last 12 months?: Yes Did you have a dental problem in the last 6 months where you did not have access to dental care?: No Was dental information given to patient?: Patient has dentist HPI 6 Month follow up HPI Details HTN: Blood pressure is stable, managed with amlodipine 5mg and metoprolol 25mg. Denies chest pain, shortness of breath, headache, dizziness, and blurred vision. Pt sees cardiology due to afib. Pt was started on eliquis but is not taking this due to cost. He is not on any blood thinners except aspirin. 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 Highly encouraged pt to have labs drawn. Pt is not interested in quitting smoking, but does go for LDCTs yearly. [facility] Medical History Atrial fibrillation PAC (premature atrial contraction) Renal calculi History of renal calculi Family history of prostate cancer Immunocompromised CLL (chronic lymphocytic leukemia) Gynecomastia Kidney stones Dyslipidemia Thyroglossal duct cyst Surgical History History of bladder surgery Hx of lithotripsy H/O colonoscopy Family History Father History of prostate cancer Social History Housing: House Alcohol intake: never Patient Tobacco Use Status: Current everyday Tobacco user Tobacco use type: Cigarette Cigarette Packs Per Day: 1 Cigarettes Per Day: 20.0 e-Cigarette/Vaping Use: Currently Using (sometimes ) Second Hand Smoke Exposure: No service: No Current occupational status: retired Cognitive needs: No Hearing needs: No Vision needs: No Questionnaire PHQ-9 Over the last 2 weeks, how often have you been bothered by any of the following problems? 1. Little interest or pleasure in doing things: not at all 2. Feeling down, depressed, or hopeless: not at all 3. Trouble falling or staying asleep, or sleeping too much: not at all 4. Feeling tired or having little energy: not at all 5. Poor appetite or overeating: not at all 6. Feeling bad about yourself - or that you are a failure or have let yourself or your family down: not at all 7. Trouble concentrating on things, such as reading the newspaper or watching television: not at all 8. Moving or speaking so slowly that other people could have noticed. Or the opposite - being so fidgety or restless that you have been moving around a lot more than usual: not at all 9. Thoughts that you would be better off or of hurting yourself in some way: not at all Total score: 0 Depression Screening Interpretation: Negative Depression Screening Done: Yes 61995 - PHQ-9 Billing: Yes Source: Developed by Drs. Darren Pepper, Natalie Bhatia, Tk Neumann and colleagues, with an educational ralph from [employer]. Thrive Questionnaire Date Thrive assessed: 05/25/23 I am a: Patient What is your living situation today?: I have a steady place to live Within the past 12 months, did the food you bought not last and you didn't have the money to get more?: Never true Within the past 12 months, did you worry whether your food would run out before you got money to buy more?: Never true Do you have trouble paying for medicines?: No Do you have trouble getting transportation to medical appointments?: No Do you have trouble paying your heating and electricity bill?: No Do you have trouble taking care of your child, family member or friend?: No Do you have trouble with day-to-day activities such as bathing, preparing meals, shopping, managing finances, etc.?: No Are you currently unemployed and looking for a job?: No Are you interested in more education?: No Please select the resources that you would like help with: None Currently or been in a relationship where the following occur: no concerns reported THRIVE Score: 0 AUDIT C Alcohol Use Questionnaire (AUDIT-C) 1. How often do you have a drink containing alcohol?: Never 3. How often do you have six or more drinks on one occasion?: Never Total Score: 0 Score Reviewed/Action Taken: Yes MOLLY-7 AMB Questionnaire MOLLY-7 Date MOLLY - 7 assessed: 05/25/23 Feeling nervous, anxious, or on edge: 0 = Not at all Not being able to stop or control worryin = Not at all Worrying too much about different things: 0 = Not at all Trouble relaxin = Not at all Being so restless that it is hard to sit still: 0 = Not at all Becoming easily annoyed or irritable: 0 = Not at all Feeling afraid as if something awful might happen: 0 = Not at all Total MOLLY-7 score (0-4 normal; 5-9 mild; 10-14 moderate; 15-21 severe): 0 Source: Developed by Drs. Darren Pepper, Natalie Bhatia, Tk Neumann and colleagues, with an educational ralph from [employer]. MOLLY-7 Assessment Billing MOLLY-7 Assessment Tool: MOLLY-7 Assessment 26027 Review of Systems Const Reports as per HPI Physical exam (Primary Care) Vital Signs: Last Vital Signs Pulse 59 05/25/23 09:34 BP 132/76 05/25/23 09:34 Pulse Ox 98 05/25/23 09:34 Oxygen Delivery Method Room Air 05/25/23 09:34 BMI result Body Mass Index 18.2 Tobacco/Smoking Status: Tobacco use Status Tobacco use date assessed 05/25/23 05/25/23 09:35 Patient Tobacco Use Status Current everyday Tobacco 05/25/23 09:35 Tobacco use type Cigarette 05/25/23 09:35 e-Cigarette/Vaping Use Currently Using (sometimes ) 05/25/23 09:35 PHQ-9: PHQ-9 Score PHQ-9: Total score 0 05/25/23 09:55 Depression Screening Interpretation: Negative Thrive Assessment: Date of Thrive Assessment Date Thrive assessed 05/25/23 05/25/23 09:47 Currently or been in a relationship where the following occur: no concerns reported Const General: cooperative Orientation/consciousness: patient oriented x3 Resp Effort & Inspection: normal respiratory effort Auscultation: diminished lung sounds Cardio Rate: regular rate Rhythm: regular rhythm Heart sounds: S1 normal heart sound present and S2 normal heart sound present Neuro General: patient oriented x3 Psych Appearance: grossly normal Mental Status: mental status grossly normal Speech and movement: Normal speech and movement present Affect: normal affect Attitude: cooperative Thought process: Normal thought process present Thought content: Normal thought content present Insight: Good insight present (Psych) Judgement: Good judgement present (Psych) Assessment and Plan Assessment & Plan (1) Atrial fibrillation: Code(s): I48.91 - Unspecified atrial fibrillation Plan: sees cardio, will make them aware of only being on ASA for anticoag. encouraged pt to get his labs drawn (2) HTN (hypertension): Code(s): I10 - Essential (primary) hypertension Plan: stable (3) Smoking: Code(s): F17.200 - Nicotine dependence, unspecified, uncomplicated Plan: continues to smoke, LDCTs performed yearly Plan The patient agreed to the use of a medical records coordinator for this encounter. Scribed for JACK Avendaño by jewell Chiang scribe, on 05/25/2023 at 09:50 EST. Coding Level of Care Code Est Pt Level 3 (38814) Diagnoses Atrial fibrillation I48.91 HTN (hypertension) I10 Smoking F17.200 Additional Codes MOLLY-7 Assessment Billing - MOLLY-7 Assessment Tool: MOLLY-7 Assessment [id number] ([id number])
[2023-05-25 09:34] VITALS: BP 132/76; PULSE 59; O2SAT 98; BMI 18.2
== END 2023-05-25 10:02 | disposition home or self-care (01) ==
PROVIDERS: PCP Nurse Practitioner Family; Visit Provider Nurse Practitioner Family
DX: I48.91 Unspecified atrial fibrillation (principal); I10 Essential (primary) hypertension; F17.210 Nicotine dependence, cigarettes, uncomplicated
CPT/HCPCS: 99213

== ENCOUNTER 2023-06-04 07:18 | Outpatient (REF) | payer MEDICARE, SELFPAY ==
[2023-06-04 10:23] LABS: INTERNATIONAL NORM RATIO 0.9 (0.9-1.1); Prothrombin Time 11.2 SEC (11.1-13.3)
== END 2023-06-04 07:19 | disposition home or self-care (01) ==
LOC: HO.HMGCLDS 07:18
PROVIDERS: PCP Nurse Practitioner Family; Visit Provider Nurse Practitioner Family
DX: I48.91 Unspecified atrial fibrillation (principal)
CPT/HCPCS: 36415; 85610

== ENCOUNTER 2023-06-08 07:25 | Outpatient (REF) | payer MEDICARE, SELFPAY ==
[2023-06-08 10:34] LABS: Prothrombin Time 12.7 SEC (11.1-13.3)
== END 2023-06-08 07:26 | disposition home or self-care (01) ==
LOC: HO.HMGCLDS 07:25
PROVIDERS: PCP Nurse Practitioner Family; Visit Provider Nurse Practitioner Family
DX: Z79.01 Long term (current) use of anticoagulants (principal)
CPT/HCPCS: 36415; 85610

== ENCOUNTER 2023-06-12 12:59 | Outpatient (AMB) | payer MEDICARE, SELFPAY ==
--- NOTE | 2023-06-12 13:27 | MHC.OFFVISCO ---
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 out of therapeutic range of 2-3 Medications and supplements reviewed Patient status: pt first visit to acs- pt states started warfarin approx 1.5 weeks ago. last lab inr was mon 06/08/23- 1.0. pt taking 3mg daily of warfarin. Medications or supplements: reviewed Diet: states 'picky' eater Denies any signs and symptoms of bleeding or clotting or unusual bruising Bleeding, bruising, clotting discussed Nutritional guidance given: no greens for 2-3 days, eat reds to raise Dose: 4mg today and tomm, then cont 3mg daily F/U INR Date : 06/16/23?? Patient verbalizing understanding of instructions given. pt initial visit to acs- education material provided and reviewed with pt including purpose of warfarin, s/s bleeding and clotting, dietary management, aware of need to call all medications or if hosp or ill as well as importance of compliance of monitoring. pt agreement and no show policy reviewed and signed by pt. risk scores done pcp barry rush called with low inr, dosing and f/u appt. spoke to mayra at 1415. request to increase pill strength of warfarin to 2mg- sent to pharmacy by mayra as pt with limited warfarin at this time. pt verbalizes understanding of change in pill strength. 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 Education Record Teaching Recipient: Patient What is the easiest way to learn: Reading, Listening, Demonstration and Education Packet Significant other who can be involved in Teaching Process when Indicated: bess benito Aircraft Quality Control Inspector Required: No Readiness To Learn: Good Teaching Methods: Demonstration, Discussion, Handout and Teach Back Response to Teaching: Reinforcement Needed Re-Education needs: Reinforce Content Education Intervention/Brief Description of Teaching 1. Able to state reason for taking Warfarin: Yes 2. Able to state Pain Management techniques: Yes 3. Able to state action of Warfarin.: Yes Able to state current dose, pill color, how and when Warfarin to be taken: Yes Able to identify signs of bleeding &/or clotting: Yes 4. Able to identify need to keep diet consistent in regard to vitamin K intake: Yes Able to state restriction on alcohol: Yes 5. Able to state need for compliance with PT/INR testing: Yes Describes rationale for carrying ID and wearing Medic Alert bracelet: Yes Patient instructed to monitor for excess bruising or signs/symptoms of clotting or bleeding: Yes 6. Able to state that there are drugs that interact with Warfin: Yes 7. Able to state the need to seek medical attention when illness/injury occur.: Yes Describes the need to avoid activities with high risk of injury: Yes 8. Able to state duration of treatment: Yes 9. Demonstrates understanding of notifying all providers of pending dental surgical, or other invasive procedures: Yes 10. Able to state Home Care instructions Questionnaires HAS-BLED Does the patient had uncontrolled Hypertension?: No Does the patient have renal disease?: No Does the patient have liver disease?: No Does the patient have a history of stroke?: No Has the patient had major bleeding or predisposition to bleeding?: No Does the patient have labile INRs?: Yes Is the patient over 65 years of age?: Yes Is the patient on medications that gives them a predisposition to bleeding?: Yes Does the patient use alcohol?: No HAS-BLED Score: 3 CHADSVASC Age: 66-74 Gender: Male Does the patient have a history of CHF?: No Does the patient have a history of Hypertension?: Yes Does the patient have a history of Stroke/TIA/Thromboembolism?: No Does the patient have a history of Vascular Disease (prior GA, PAD or aortic plaque)?: No Does the patient have a history of Diabetes?: No CHADS VACS Score: 2 Amanda Prediction Score Rsk VTE Active Cancer: Yes Previous VTE, excluding superficial vein thrombosis: No Reduced mobility: No Already known Thrombophilic Condition: No With-in last month Trauma and/or Surgery: No Elderly 70 year or older: Yes Heart and/or Respiratory Failure: No Acute Myocardial infarction and/or Ischemic Stroke: No Acute Infection and/or Rheumatologic Disorder: No Obesity (BMI 30 or greater): No Ongoing Hormonal Treatment: No Score: 4 Amanda Score less than 4; Low Risk of VTE Amanda Score 4 or greater; High Risk of VTE Coding Level of Care Code New Patient Level 2 Diagnoses Current use of anticoagulant therapy Z79.01 Assessment & Plan Assessment & Plan (1) Current use of anticoagulant therapy: Code(s): Z79.01 - skilled nursing (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 Orders: Orders AMB INR Today Z79.01 - skilled nursing (current) use of anticoagulants Medications: Discontinued warfarin Discontinued Reason: Ancillary Entered New Order 1 mg PO DAILY 30 tabs 0RF
[2023-06-12 13:48] LABS: Prothrombin Time Whole Bld POC 17.6 sec (11.1-13.5); ~PT, ~INR - Anti Coag Clinic 1.5 (0.9-1.1)
== END 2023-06-12 14:20 | disposition home or self-care (01) ==
LOC: HO.ACS 12:59
PROVIDERS: PCP Nurse Practitioner Family; Visit Provider Internal Medicine
DX: Z79.01 Long term (current) use of anticoagulants (principal)

== ENCOUNTER → 2023-06-12 12:59 | Outpatient (BNVA) | payer MEDICARE, SELFPAY | PROVIDERS: PCP Nurse Practitioner Family; Visit Provider Internal Medicine | DX: I48.91 Unspecified atrial fibrillation (principal); Z79.01 Long term (current) use of anticoagulants; Z51.81 Encounter for therapeutic drug level monitoring | CPT/HCPCS: 85610; 99202 ==

== ENCOUNTER 2023-06-16 08:44 | Outpatient (AMB) | payer MEDICARE, SELFPAY ==
--- NOTE | 2023-06-16 08:58 | MHC.OFFVISCO ---
Intake Intake Visit Reasons: Anticoagulation Allergies No Known Allergies [No Known Allergies*] Allergy (Verified 06/16/23 08:45) Medication List - Last Reconciled 06/16/23 by Bridgett Yoon RN amlodipine 5 mg PO DAILY atorvastatin 20 mg PO DAILY 90 days metoprolol succinate ER 25 mg PO DAILY multivitamin (One-A-Day Essential tablet) 1 tab PO DAILY pyridoxine (vitamin B6) 100 mg PO DAILY 90 days warfarin See Protocol 1-2 tabs per INR results orally daily; Nursing Note Pt to [facility] 4 days after initial visit. Feels well. No changes. INR: 2.3 in therapeutic range of 2-3 Medications and supplements reviewed: no changes No changes in health, diet, medications, or supplements. Denies any signs and symptoms of bleeding or bruising or clotting. Bleeding, bruising, clotting discussed Nutritional guidance given to balance reds and greens. Food list reviewed. Dose: 4mg X2 days and 3mg X5 days F/U INR: 06/19/23 Patient verbalizes understanding of instructions given Anti-Coag Initial Assessment Social Hx Patient Tobacco Use Status: Current everyday Tobacco user Tobacco use type: Cigarette Smoking packs per day: 1 alcohol intake: former (quit etoh at age 28) Cardiovascular Hx: HTN and Arrhythmias (afib) Lung Disease HX: Other (hx collapsed lung approx 30 years ago) Blood Disorder Hx: Hyperlipidemia Hx: Bladder Disorders (bladder cancer 2 years ago, hx microscopic hematuria, renal calculi) Cancer HX: Yes Coding Level of Care Code Est Patient Level 1 Diagnoses Current use of anticoagulant therapy Z79.01 Results AMB INR Fingerstick AMB INR Fingerstick 2.3 Last Edit by Bridgett Yoon RN on 06/16/23 08:52 interface delay Assessment & Plan Assessment & Plan (1) Current use of anticoagulant therapy: 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
[2023-06-16 09:03] LABS: ~PT, ~INR - Anti Coag Clinic 2.3 (0.9-1.1)
== END 2023-06-16 09:02 | disposition home or self-care (01) ==
LOC: HO.ACS 08:44
PROVIDERS: PCP Nurse Practitioner Family; Visit Provider Internal Medicine
DX: Z79.01 Long term (current) use of anticoagulants (principal)

== ENCOUNTER → 2023-06-16 08:44 | Outpatient (BNVA) | payer MEDICARE, SELFPAY | PROVIDERS: PCP Nurse Practitioner Family; Visit Provider Internal Medicine | DX: I48.91 Unspecified atrial fibrillation (principal); Z79.01 Long term (current) use of anticoagulants; Z51.81 Encounter for therapeutic drug level monitoring | CPT/HCPCS: 85610; 99211 ==

== ENCOUNTER 2023-06-19 08:03 | Outpatient (AMB) | payer MEDICARE, SELFPAY ==
[2023-06-19 08:13] LABS: Prothrombin Time Whole Bld POC 30.7 sec (11.1-13.5); ~PT, ~INR - Anti Coag Clinic 2.6 (0.9-1.1)
--- NOTE | 2023-06-19 08:21 | MHC.OFFVISCO ---
Intake Intake Visit Reasons: Anticoagulation Allergies No Known Allergies [No Known Allergies*] Allergy (Verified 06/19/23 08:04) Medication List - Last Reconciled 06/19/23 by Bridgett Yoon RN amlodipine 5 mg PO DAILY atorvastatin 20 mg PO DAILY 90 days metoprolol succinate ER 25 mg PO DAILY multivitamin (One-A-Day Essential tablet) 1 tab PO DAILY pyridoxine (vitamin B6) 100 mg PO DAILY 90 days warfarin See Protocol 1-2 tabs per INR results orally daily; Nursing Note INR: 2.6 in therapeutic range of 2-3 Medications and supplements reviewed no changes No changes in health, diet, medications, or supplements, Denies any signs and symptoms of bleeding or bruising or clotting. Bleeding, bruising, clotting discussed Nutritional guidance given. Discussed the food list and reviewed how to balance greens and reds. Dose: 3mg X6 days and 4mg X 1 day F/U INR: 5 days Patient verbalizes understanding of instructions given Anti-Coag Initial Assessment Social Hx Patient Tobacco Use Status: Current everyday Tobacco user Tobacco use type: Cigarette Smoking packs per day: 1 alcohol intake: former (quit etoh at age 28) Cardiovascular Hx: HTN and Arrhythmias (afib) Lung Disease HX: Other (hx collapsed lung approx 30 years ago) Blood Disorder Hx: Hyperlipidemia Hx: Bladder Disorders (bladder cancer 2 years ago, hx microscopic hematuria, renal calculi) Cancer HX: Yes Coding Level of Care Code Est Patient Level 1 Diagnoses Current use of anticoagulant therapy Z79.01 Results AMB INR Fingerstick AMB INR Fingerstick 2.6 Last Edit by Bridgett Yoon RN on 06/19/23 08:12 interface delay Assessment & Plan Assessment & Plan (1) Current use of anticoagulant therapy: Code(s): Z79.01 - penitentiary (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
== END 2023-06-19 08:24 | disposition home or self-care (01) ==
LOC: HO.ACS 08:03
PROVIDERS: PCP Nurse Practitioner Family; Visit Provider Internal Medicine
DX: Z79.01 Long term (current) use of anticoagulants (principal)

== ENCOUNTER → 2023-06-19 08:03 | Outpatient (BNVA) | payer MEDICARE, SELFPAY | PROVIDERS: PCP Nurse Practitioner Family; Visit Provider Internal Medicine | DX: I48.91 Unspecified atrial fibrillation (principal); Z79.01 Long term (current) use of anticoagulants; Z51.81 Encounter for therapeutic drug level monitoring | CPT/HCPCS: 85610; 99211 ==

== ENCOUNTER 2023-06-24 09:43 | Outpatient (AMB) | payer MEDICARE, SELFPAY ==
--- NOTE | 2023-06-24 10:10 | MHC.OFFVISCO ---
Intake Intake Visit Reasons: Anticoagulation Allergies No Known Allergies [No Known Allergies*] Allergy (Verified 06/24/23 10:05) Medication List - Last Reconciled 06/24/23 by Avelina Pierre RN amlodipine 5 mg PO DAILY atorvastatin 20 mg PO DAILY 90 days metoprolol succinate ER 25 mg PO DAILY multivitamin (One-A-Day Essential tablet) 1 tab PO DAILY pyridoxine (vitamin B6) 100 mg PO DAILY 90 days warfarin See Protocol 1-2 tabs per INR results orally daily; Nursing Note INR: 2.3- in therapeutic range of 2-3 Medications and supplements reviewed- no changes No changes in health, diet, medications, or supplements, Denies any signs and symptoms of bleeding or bruising or clotting. Bleeding, bruising, clotting discussed Nutritional guidance given Dose: 3mg x 6, 4mg x 1 F/U INR: 1 week Patient verbalizes understanding of instructions given Anti-Coag Initial Assessment Social Hx Patient Tobacco Use Status: Current everyday Tobacco user Tobacco use type: Cigarette Smoking packs per day: 1 alcohol intake: former (quit etoh at age 28) Cardiovascular Hx: HTN and Arrhythmias (afib) Lung Disease HX: Other (hx collapsed lung approx 30 years ago) Blood Disorder Hx: Hyperlipidemia Hx: Bladder Disorders (bladder cancer 2 years ago, hx microscopic hematuria, renal calculi) Cancer HX: Yes Coding Level of Care Code Est Patient Level 1 Diagnoses Current use of anticoagulant therapy Z79.01 Assessment & Plan Assessment & Plan (1) Current use of anticoagulant therapy: Code(s): Z79.01 - half-way (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
[2023-06-24 10:11] LABS: Prothrombin Time Whole Bld POC 28.1 sec (11.1-13.5); ~PT, ~INR - Anti Coag Clinic 2.3 (0.9-1.1)
== END 2023-06-24 10:16 | disposition home or self-care (01) ==
LOC: HO.ACS 09:43
PROVIDERS: PCP Nurse Practitioner Family; Visit Provider Internal Medicine
DX: Z79.01 Long term (current) use of anticoagulants (principal)

== ENCOUNTER → 2023-06-24 09:43 | Outpatient (BNVA) | payer MEDICARE, SELFPAY | PROVIDERS: PCP Nurse Practitioner Family; Visit Provider Internal Medicine | DX: I48.91 Unspecified atrial fibrillation (principal); Z79.01 Long term (current) use of anticoagulants; Z51.81 Encounter for therapeutic drug level monitoring | CPT/HCPCS: 85610; 99211 ==

== ENCOUNTER 2023-07-01 08:05 | Outpatient (AMB) | payer MEDICARE, SELFPAY ==
[2023-07-01 08:22] LABS: ~PT, ~INR - Anti Coag Clinic 1.9 (0.9-1.1)
--- NOTE | 2023-07-01 08:31 | MHC.OFFVISCO ---
Intake Intake Visit Reasons: Anticoagulation Allergies No Known Allergies [No Known Allergies*] Allergy (Verified 07/01/23 08:15) Medication List - Last Reconciled 07/01/23 by Rina Rivera RN amlodipine 5 mg PO DAILY atorvastatin 20 mg PO DAILY 90 days metoprolol succinate ER 25 mg PO DAILY multivitamin (One-A-Day Essential tablet) 1 tab PO DAILY pyridoxine (vitamin B6) 100 mg PO DAILY 90 days warfarin See Protocol 1-2 tabs per INR results orally daily; Nursing Note NO CP,SOB,DIET/MED CHANGES,FALLS OR SX OF BLEEDING. INCREASE WEEKLY DOSE AND FOLLOW-UP IN 1 WEEK. NO GREENS TODAY,WILL INCREASE REDS. GOOD UNDERSTANDING OF DOSING INMSTR.VERB.BY PT. Anti-Coag Initial Assessment Social Hx Patient Tobacco Use Status: Current everyday Tobacco user Tobacco use type: Cigarette Smoking packs per day: 1 alcohol intake: former (quit etoh at age 28) Cardiovascular Hx: HTN and Arrhythmias (afib) Lung Disease HX: Other (hx collapsed lung approx 30 years ago) Blood Disorder Hx: Hyperlipidemia Hx: Bladder Disorders (bladder cancer 2 years ago, hx microscopic hematuria, renal calculi) Cancer HX: Yes Coding Level of Care Code Est Patient Level 1 Diagnoses Current use of anticoagulant therapy Z79.01 Assessment & Plan Assessment & Plan (1) Current use of anticoagulant therapy: Code(s): Z79.01 - nursing home (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
== END 2023-07-01 08:42 | disposition home or self-care (01) ==
LOC: HO.ACS 08:05
PROVIDERS: PCP Nurse Practitioner Family; Visit Provider Internal Medicine
DX: Z79.01 Long term (current) use of anticoagulants (principal)

== ENCOUNTER → 2023-07-01 08:05 | Outpatient (BNVA) | payer MEDICARE, SELFPAY | PROVIDERS: PCP Nurse Practitioner Family; Visit Provider Internal Medicine | DX: I48.91 Unspecified atrial fibrillation (principal); Z51.81 Encounter for therapeutic drug level monitoring; Z79.01 Long term (current) use of anticoagulants | CPT/HCPCS: 85610; 99211 ==

== ENCOUNTER 2023-07-08 08:34 | Outpatient (AMB) | payer MEDICARE, SELFPAY ==
[2023-07-08 08:45] LABS: Prothrombin Time Whole Bld POC 24.2 sec (11.1-13.5)
--- NOTE | 2023-07-08 08:52 | MHC.OFFVISCO ---
Intake Intake Visit Reasons: Anticoagulation Allergies No Known Allergies [No Known Allergies*] Allergy (Verified 07/08/23 08:39) Medication List - Last Reconciled 07/08/23 by Rina Rivera RN amlodipine 5 mg PO DAILY atorvastatin 20 mg PO DAILY 90 days metoprolol succinate ER 25 mg PO DAILY multivitamin (One-A-Day Essential tablet) 1 tab PO DAILY pyridoxine (vitamin B6) 100 mg PO DAILY 90 days warfarin See Protocol 1-2 tabs per INR results orally daily; Nursing Note NO CP,SOB,DIET/MED CHANGES, OR SX OF BLEEDING. INCREASE WEEKLY DOSE SLIGHTLY AND WILL RE-INTRODUCE GREENS FOLLOW-UP IN 1 WEEK PT.VERB.GOOD UNDERSTANDING OF DOSING INSTR. Anti-Coag Initial Assessment Social Hx Patient Tobacco Use Status: Current everyday Tobacco user Tobacco use type: Cigarette Smoking packs per day: 1 alcohol intake: former (quit etoh at age 28) Cardiovascular Hx: HTN and Arrhythmias (afib) Lung Disease HX: Other (hx collapsed lung approx 30 years ago) Blood Disorder Hx: Hyperlipidemia Hx: Bladder Disorders (bladder cancer 2 years ago, hx microscopic hematuria, renal calculi) Cancer HX: Yes Coding Level of Care Code Est Patient Level 1 Diagnoses Current use of anticoagulant therapy Z79.01 Assessment & Plan Assessment & Plan (1) Current use of anticoagulant therapy: Code(s): 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
== END 2023-07-08 08:53 | disposition home or self-care (01) ==
LOC: HO.ACS 08:34
PROVIDERS: PCP Nurse Practitioner Family; Visit Provider Internal Medicine
DX: Z79.01 Long term (current) use of anticoagulants (principal)

== ENCOUNTER → 2023-07-08 08:34 | Outpatient (BNVA) | payer MEDICARE, SELFPAY | PROVIDERS: PCP Nurse Practitioner Family; Visit Provider Internal Medicine | DX: I48.91 Unspecified atrial fibrillation (principal); Z51.81 Encounter for therapeutic drug level monitoring; Z79.01 Long term (current) use of anticoagulants | CPT/HCPCS: 85610; 99211 ==

== ENCOUNTER 2023-07-15 08:50 | Outpatient (AMB) | payer MEDICARE, SELFPAY ==
--- NOTE | 2023-07-15 08:56 | MHC.OFFVISCO ---
Intake Intake Visit Reasons: Anticoagulation Allergies No Known Allergies [No Known Allergies*] Allergy (Verified 07/15/23 08:52) Medication List - Last Reconciled 07/15/23 by Avelina Pierre RN amlodipine 5 mg PO DAILY atorvastatin 20 mg PO DAILY 90 days metoprolol succinate ER 25 mg PO DAILY multivitamin (One-A-Day Essential tablet) 1 tab PO DAILY pyridoxine (vitamin B6) 100 mg PO DAILY 90 days warfarin See Protocol 1-2 tabs per INR results orally daily; Nursing Note INR 1.8-? out of therapeutic range of 2-3 Medications and supplements reviewed Patient status: no c.o, denies missed dose Medications or supplements: no changes Diet: appetite good Denies any signs and symptoms of bleeding or clotting or unusual bruising Bleeding, bruising, clotting discussed Nutritional guidance given: no greens for 3 days, eat reds to raise Dose: [] F/U INR Date : 1 week? Patient verbalizing understanding of instructions given. Anti-Coag Initial Assessment Social Hx Patient Tobacco Use Status: Current everyday Tobacco user Tobacco use type: Cigarette Smoking packs per day: 1 alcohol intake: former (quit etoh at age 28) Cardiovascular Hx: HTN and Arrhythmias (afib) Lung Disease HX: Other (hx collapsed lung approx 30 years ago) Blood Disorder Hx: Hyperlipidemia Hx: Bladder Disorders (bladder cancer 2 years ago, hx microscopic hematuria, renal calculi) Cancer HX: Yes Coding Level of Care Code Est Patient Level 1 Diagnoses Current use of anticoagulant therapy Z79.01 Results AMB INR Fingerstick AMB INR Fingerstick 1.8 Last Edit by Avelina Pierre RN on 07/15/23 08:58 Assessment & Plan Assessment & Plan (1) Current use of anticoagulant therapy: Code(s): Z79.01 - superintendent terminal (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
[2023-07-16 09:06] LABS: Prothrombin Time Whole Bld POC 21.2 sec (11.1-13.5); ~PT, ~INR - Anti Coag Clinic 1.8 (0.9-1.1)
== END 2023-07-15 10:10 | disposition home or self-care (01) ==
LOC: HO.ACS 08:50
PROVIDERS: PCP Nurse Practitioner Family; Visit Provider Internal Medicine
DX: Z79.01 Long term (current) use of anticoagulants (principal)

== ENCOUNTER → 2023-07-15 08:50 | Outpatient (BNVA) | payer MEDICARE, SELFPAY | PROVIDERS: PCP Nurse Practitioner Family; Visit Provider Internal Medicine | DX: I48.91 Unspecified atrial fibrillation (principal); Z51.81 Encounter for therapeutic drug level monitoring; Z79.01 Long term (current) use of anticoagulants | CPT/HCPCS: 85610; 99211 ==

== ENCOUNTER 2023-07-22 08:35 | Outpatient (AMB) | payer MEDICARE, SELFPAY ==
--- NOTE | 2023-07-22 08:39 | MHC.OFFVISCO ---
Intake Intake Visit Reasons: Anticoagulation Allergies No Known Allergies [No Known Allergies*] Allergy (Verified 07/22/23 08:35) Medication List - Last Reconciled 07/22/23 by Avelina Pierre RN amlodipine 5 mg PO DAILY atorvastatin 20 mg PO DAILY 90 days metoprolol succinate ER 25 mg PO DAILY multivitamin (One-A-Day Essential tablet) 1 tab PO DAILY pyridoxine (vitamin B6) 100 mg PO DAILY 90 days warfarin See Protocol 1-2 tabs per INR results orally daily; Nursing Note INR: 2.1- in therapeutic range of 2-3 Medications and supplements reviewed No changes in health, diet, medications, or supplements, Denies any signs and symptoms of bleeding or bruising or clotting. Bleeding, bruising, clotting discussed Nutritional guidance given - balance reds/greens Dose: 3mg x 3, 4mg x 4 F/U INR: 1 week Patient verbalizes understanding of instructions given Anti-Coag Initial Assessment Social Hx Patient Tobacco Use Status: Current everyday Tobacco user Tobacco use type: Cigarette Smoking packs per day: 1 alcohol intake: former (quit etoh at age 28) Cardiovascular Hx: HTN and Arrhythmias (afib) Lung Disease HX: Other (hx collapsed lung approx 30 years ago) Blood Disorder Hx: Hyperlipidemia Hx: Bladder Disorders (bladder cancer 2 years ago, hx microscopic hematuria, renal calculi) Cancer HX: Yes Coding Level of Care Code Est Patient Level 1 Diagnoses Current use of anticoagulant therapy Z79.01 Assessment & Plan Assessment & Plan (1) Current use of anticoagulant therapy: Code(s): Z79.01 - residential (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
[2023-07-22 08:40] LABS: Prothrombin Time Whole Bld POC 24.7 sec (11.1-13.5); ~PT, ~INR - Anti Coag Clinic 2.1 (0.9-1.1)
== END 2023-07-22 08:44 | disposition home or self-care (01) ==
LOC: HO.ACS 08:35
PROVIDERS: PCP Nurse Practitioner Family; Visit Provider Internal Medicine
DX: Z79.01 Long term (current) use of anticoagulants (principal)

== ENCOUNTER → 2023-07-22 08:35 | Outpatient (BNVA) | payer MEDICARE, SELFPAY | PROVIDERS: PCP Nurse Practitioner Family; Visit Provider Internal Medicine | DX: I48.91 Unspecified atrial fibrillation (principal); Z79.01 Long term (current) use of anticoagulants; Z51.81 Encounter for therapeutic drug level monitoring | CPT/HCPCS: 85610; 99211 ==

== ENCOUNTER 2023-07-29 08:42 | Outpatient (AMB) | payer MEDICARE, SELFPAY ==
[2023-07-29 08:57] LABS: Prothrombin Time Whole Bld POC 28.5 sec (11.1-13.5); ~PT, ~INR - Anti Coag Clinic 2.4 (0.9-1.1)
--- NOTE | 2023-07-29 09:02 | MHC.OFFVISCO ---
Intake Intake Visit Reasons: Anticoagulation Allergies No Known Allergies [No Known Allergies*] Allergy (Verified 07/29/23 08:53) Medication List - Last Reconciled 07/29/23 by Rina Rivera RN amlodipine 5 mg PO DAILY atorvastatin 20 mg PO DAILY 90 days metoprolol succinate ER 25 mg PO DAILY multivitamin (One-A-Day Essential tablet) 1 tab PO DAILY pyridoxine (vitamin B6) 100 mg PO DAILY 90 days warfarin See Protocol 1-2 tabs per INR results orally daily; Nursing Note NO CP,SOB,DIET/MED CHANGES,FALLS OR SX OF BLEEDING. CONTINUE PRESENT DOSE AND FOLLOW-UP IN 1 WEEK GOOD UNDERSTANDING OF DOSING INSTR./ Anti-Coag Initial Assessment Social Hx Patient Tobacco Use Status: Current everyday Tobacco user Tobacco use type: Cigarette Smoking packs per day: 1 alcohol intake: former (quit etoh at age 28) Cardiovascular Hx: HTN and Arrhythmias (afib) Lung Disease HX: Other (hx collapsed lung approx 30 years ago) Blood Disorder Hx: Hyperlipidemia Hx: Bladder Disorders (bladder cancer 2 years ago, hx microscopic hematuria, renal calculi) Cancer HX: Yes Coding Level of Care Code Est Patient Level 1 Diagnoses Current use of anticoagulant therapy Z79.01 Assessment & Plan Assessment & Plan (1) Current use of anticoagulant therapy: Code(s): Z79.01 - 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
== END 2023-07-29 09:03 | disposition home or self-care (01) ==
LOC: HO.ACS 08:42
PROVIDERS: PCP Nurse Practitioner Family; Visit Provider Internal Medicine
DX: Z79.01 Long term (current) use of anticoagulants (principal)

== ENCOUNTER → 2023-07-29 08:42 | Outpatient (BNVA) | payer MEDICARE, SELFPAY | PROVIDERS: PCP Nurse Practitioner Family; Visit Provider Internal Medicine | DX: I48.91 Unspecified atrial fibrillation (principal); Z79.01 Long term (current) use of anticoagulants; Z51.81 Encounter for therapeutic drug level monitoring | CPT/HCPCS: 85610; 99211 ==

== ENCOUNTER 2023-08-05 09:54 | Outpatient (AMB) | payer MEDICARE, SELFPAY ==
--- NOTE | 2023-08-05 10:11 | MHC.OFFVISCO ---
Intake Intake Visit Reasons: Anticoagulation Allergies No Known Allergies [No Known Allergies*] Allergy (Verified 08/05/23 09:55) Medication List - Last Reconciled 08/05/23 by Sarah Beth Gaines RN amlodipine 5 mg PO DAILY atorvastatin 20 mg PO DAILY 90 days metoprolol succinate ER 25 mg PO DAILY multivitamin (One-A-Day Essential tablet) 1 tab PO DAILY pyridoxine (vitamin B6) 100 mg PO DAILY 90 days warfarin See Protocol 1-2 tabs per INR results orally daily; Nursing Note INR: 2.9 in therapeutic range- INR HAS BEEN TRENDING UP - MAY NEED TO ADJUST DIET AND WARFARIN DOSE HOW SMOKIN GEFFECTS INR EXPLAINED TO PT- HE SMOKES ABOUT 1 PACK / DAY Medications and supplements reviewed No changes in health, diet, medications, or supplements, Denies any signs and symptoms of bleeding or bruising or clotting. Bleeding, bruising, clotting discussed Nutritional guidance given - ENC TO INCREASE GREENS WHEN HAVING MORE REDS- DOESNT EAT VERY MANY VEGETABLES, LIKES LETTUCE AND CUCUMBERS- HE IS WILLING TO HAVE 2 SALADS / WEEK BUT IF NOT SUSTAINABLE HE WILL NOTIFY [facility] Dose: KEEPS SAME FOR NOW 3MG X 3 DAYS/ 4MG X 4 DAYS - MAY NEED TO ADJUST DOSE - INR TRNESING UPWARD F/U INR: 2 WEEKS Patient verbalizes understanding of instructions given Anti-Coag Initial Assessment Social Hx Patient Tobacco Use Status: Current everyday Tobacco user Tobacco use type: Cigarette Smoking packs per day: 1 alcohol intake: former (quit etoh at age 28) Cardiovascular Hx: HTN and Arrhythmias (afib) Lung Disease HX: Other (hx collapsed lung approx 30 years ago) Blood Disorder Hx: Hyperlipidemia Hx: Bladder Disorders (bladder cancer 2 years ago, hx microscopic hematuria, renal calculi) Cancer HX: Yes Coding Level of Care Code Est Patient Level 1 Diagnoses Current use of anticoagulant therapy Z79.01 Results AMB INR Fingerstick AMB INR Fingerstick 2.9 Last Edit by Sarah Beth Gaines RN on 08/05/23 10:07 MANUAL ENTRY NO INTERFACING TODAY Assessment & Plan Assessment & Plan (1) Current use of anticoagulant therapy: Code(s): 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
[2023-08-05 10:17] LABS: Prothrombin Time Whole Bld POC 34.4 sec (11.1-13.5); ~PT, ~INR - Anti Coag Clinic 2.9 (0.9-1.1)
== END 2023-08-05 10:16 | disposition home or self-care (01) ==
LOC: HO.ACS 09:54
PROVIDERS: PCP Nurse Practitioner Family; Visit Provider Internal Medicine
DX: Z79.01 Long term (current) use of anticoagulants (principal)

== ENCOUNTER → 2023-08-05 09:54 | Outpatient (BNVA) | payer MEDICARE, SELFPAY | PROVIDERS: PCP Nurse Practitioner Family; Visit Provider Internal Medicine | DX: I48.91 Unspecified atrial fibrillation (principal); Z79.01 Long term (current) use of anticoagulants; Z51.81 Encounter for therapeutic drug level monitoring | CPT/HCPCS: 85610; 99211 ==

== ENCOUNTER → 2023-08-19 08:30 | Outpatient (BNVA) | payer MEDICARE, SELFPAY | PROVIDERS: PCP Nurse Practitioner Family; Visit Provider Internal Medicine | DX: I48.91 Unspecified atrial fibrillation (principal); Z79.01 Long term (current) use of anticoagulants; Z51.81 Encounter for therapeutic drug level monitoring | CPT/HCPCS: 85610; 99211 ==

== ENCOUNTER 2023-09-02 08:20 | Outpatient (AMB) | payer MEDICARE, SELFPAY ==
[2023-09-02 08:33] LABS: Prothrombin Time Whole Bld POC 21.9 sec (11.1-13.5); ~PT, ~INR - Anti Coag Clinic 1.8 (0.9-1.1)
--- NOTE | 2023-09-02 08:46 | MHC.OFFVISCO ---
Intake Intake Visit Reasons: Anticoagulation Allergies No Known Allergies [No Known Allergies*] Allergy (Verified 09/02/23 08:27) Medication List - Last Reconciled 09/02/23 by Rina Rivera RN amlodipine 5 mg PO DAILY atorvastatin 20 mg PO DAILY 90 days metoprolol succinate ER 25 mg PO DAILY multivitamin (One-A-Day Essential tablet) 1 tab PO DAILY pyridoxine (vitamin B6) 100 mg PO DAILY 90 days warfarin See Protocol 1-2 tabs per INR results orally daily; Nursing Note PT.BELIEVES THAT HE MISSED A DOSE THIS WEEK. HE HAS NOT HAD ANY GREENS SINCE LAST [facility] VISIT DUE TO LOWER INR. PT.DENIES ANY CP,SOB,DIET/MED CHANGES,FALLS OR SX OF BLEEDING. BOOSTER DOSE TODAY AND TOMORROW THERN INCREASE WEEKLY DOSE SLIGHTLY TO ALLOW FOR GREENS. PT.ALSO AGREES TO USE A PILL CONTAINER TO AVOID MISSING DOSES. GOOD UNDERSTANFING OF DOSING INSTR. Anti-Coag Initial Assessment Social Hx Patient Tobacco Use Status: Current everyday Tobacco user Tobacco use type: Cigarette Smoking packs per day: 1 alcohol intake: former (quit etoh at age 28) Cardiovascular Hx: HTN and Arrhythmias (afib) Lung Disease HX: Other (hx collapsed lung approx 30 years ago) Blood Disorder Hx: Hyperlipidemia Hx: Bladder Disorders (bladder cancer 2 years ago, hx microscopic hematuria, renal calculi) Cancer HX: Yes Coding Level of Care Code Est Patient Level 1 Diagnoses Current use of anticoagulant therapy Z79.01 Results AMB INR Fingerstick AMB INR Fingerstick 1.8 Last Edit by Rina Rivera RN on 09/02/23 08:38 Assessment & Plan Assessment & Plan (1) Current use of anticoagulant therapy: Code(s): Z79.01 - jail (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
== END 2023-09-02 08:49 | disposition home or self-care (01) ==
LOC: HO.ACS 08:20
PROVIDERS: PCP Nurse Practitioner Family; Visit Provider Internal Medicine
DX: Z79.01 Long term (current) use of anticoagulants (principal)

== ENCOUNTER → 2023-09-02 08:20 | Outpatient (BNVA) | payer MEDICARE, SELFPAY | PROVIDERS: PCP Nurse Practitioner Family; Visit Provider Internal Medicine | DX: I48.91 Unspecified atrial fibrillation (principal); Z79.01 Long term (current) use of anticoagulants; Z51.81 Encounter for therapeutic drug level monitoring | CPT/HCPCS: 85610; 99211 ==

== ENCOUNTER 2023-09-16 08:07 | Outpatient (AMB) | payer MEDICARE, SELFPAY ==
[2023-09-16 08:24] LABS: Prothrombin Time Whole Bld POC 33.8 sec (11.1-13.5); ~PT, ~INR - Anti Coag Clinic 2.8 (0.9-1.1)
--- NOTE | 2023-09-16 08:27 | MHC.OFFVISCO ---
Intake Intake Visit Reasons: Anticoagulation Allergies No Known Allergies [No Known Allergies*] Allergy (Verified 09/16/23 08:18) Medication List - Last Reconciled 09/16/23 by Sarah Beth Gaines RN amlodipine 5 mg PO DAILY atorvastatin 20 mg PO DAILY 90 days metoprolol succinate ER 25 mg PO DAILY multivitamin (One-A-Day Essential tablet) 1 tab PO DAILY pyridoxine (vitamin B6) 100 mg PO DAILY 90 days warfarin See Protocol 1-2 tabs per INR results orally daily; Nursing Note INR: 2.0 in therapeutic range- USING PILL BOX NOW Medications and supplements reviewed No changes in health, diet, medications, or supplements, Denies any signs and symptoms of bleeding or bruising or clotting. Bleeding, bruising, clotting discussed Nutritional guidance given - LIKES GREENS ADDING FEW MORE TO DIET Dose: 3MG X 2 DAYS/ 4MG X 5 DAYS F/U INR: 09/30/23 Patient verbalizes understanding of instructions given Anti-Coag Initial Assessment Social Hx Patient Tobacco Use Status: Current everyday Tobacco user Tobacco use type: Cigarette Smoking packs per day: 1 alcohol intake: former (quit etoh at age 28) Cardiovascular Hx: HTN and Arrhythmias (afib) Lung Disease HX: Other (hx collapsed lung approx 30 years ago) Blood Disorder Hx: Hyperlipidemia Hx: Bladder Disorders (bladder cancer 2 years ago, hx microscopic hematuria, renal calculi) Cancer HX: Yes Coding Level of Care Code Est Patient Level 1 Diagnoses Current use of anticoagulant therapy Z79.01 Results AMB INR Fingerstick AMB INR Fingerstick 2.8 Last Edit by Sarah Beth Gaines RN on 09/16/23 08:25 MANUAL ENTRY Assessment & Plan Assessment & Plan (1) Current use of anticoagulant therapy: Code(s): Z79.01 - [facility] (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
== END 2023-09-16 08:30 | disposition home or self-care (01) ==
LOC: HO.ACS 08:07
PROVIDERS: PCP Nurse Practitioner Family; Visit Provider Internal Medicine
DX: Z79.01 Long term (current) use of anticoagulants (principal)

== ENCOUNTER → 2023-09-16 08:07 | Outpatient (BNVA) | payer MEDICARE, SELFPAY | PROVIDERS: PCP Nurse Practitioner Family; Visit Provider Internal Medicine | DX: I48.91 Unspecified atrial fibrillation (principal); Z79.01 Long term (current) use of anticoagulants; Z51.81 Encounter for therapeutic drug level monitoring | CPT/HCPCS: 85610; 99211 ==

== ENCOUNTER 2023-09-30 08:23 | Outpatient (AMB) | payer MEDICARE, SELFPAY ==
[2023-09-30 08:44] LABS: Prothrombin Time Whole Bld POC 29.9 sec (11.1-13.5); ~PT, ~INR - Anti Coag Clinic 2.5 (0.9-1.1)
--- NOTE | 2023-09-30 08:51 | MHC.OFFVISCO ---
Intake Intake Visit Reasons: Anticoagulation Allergies No Known Allergies [No Known Allergies*] Allergy (Verified 09/30/23 08:39) Medication List - Last Reconciled 09/30/23 by Sarah Beth Gaines RN amlodipine 5 mg PO DAILY atorvastatin 20 mg PO DAILY 90 days metoprolol succinate ER 25 mg PO DAILY multivitamin (One-A-Day Essential tablet) 1 tab PO DAILY pyridoxine (vitamin B6) 100 mg PO DAILY 90 days warfarin See Protocol 1-2 tabs per INR results orally daily; Nursing Note INR: 2.5 in therapeutic range Medications and supplements reviewed No changes in health, diet, medications, or supplements, Denies any signs and symptoms of bleeding or bruising or clotting. Bleeding, bruising, clotting discussed Nutritional guidance given - MAKE SURE TO EAT MORE GREENS WHEN YOUR TOMATOES COME IN Dose: KEEP SAME DOSE 3MG X 2 DAYS/ 4MG X 5 DAYS F/U INR: 2 WEEKS PER PT REQUEST THEN MAY TRY 3 WEEKS Patient verbalizes understanding of instructions given Anti-Coag Initial Assessment Social Hx Patient Tobacco Use Status: Current everyday Tobacco user Tobacco use type: Cigarette Smoking packs per day: 1 alcohol intake: former (quit etoh at age 28) Cardiovascular Hx: HTN and Arrhythmias (afib) Lung Disease HX: Other (hx collapsed lung approx 30 years ago) Blood Disorder Hx: Hyperlipidemia Hx: Bladder Disorders (bladder cancer 2 years ago, hx microscopic hematuria, renal calculi) Cancer HX: Yes Coding Level of Care Code Est Patient Level 1 Diagnoses Current use of anticoagulant therapy Z79.01 Assessment & Plan Assessment & Plan (1) Current use of anticoagulant therapy: 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
== END 2023-09-30 08:52 | disposition home or self-care (01) ==
LOC: HO.ACS 08:23
PROVIDERS: PCP Nurse Practitioner Family; Visit Provider Internal Medicine
DX: Z79.01 Long term (current) use of anticoagulants (principal)

== ENCOUNTER → 2023-09-30 08:23 | Outpatient (BNVA) | payer MEDICARE, SELFPAY | PROVIDERS: PCP Nurse Practitioner Family; Visit Provider Internal Medicine | DX: I48.91 Unspecified atrial fibrillation (principal); Z79.01 Long term (current) use of anticoagulants; Z51.81 Encounter for therapeutic drug level monitoring | CPT/HCPCS: 85610; 99211 ==

== ENCOUNTER 2023-10-14 08:16 | Outpatient (AMB) | payer MEDICARE, SELFPAY ==
--- NOTE | 2023-10-14 08:41 | MHC.OFFVISCO ---
Intake Intake Visit Reasons: Anticoagulation Allergies No Known Allergies [No Known Allergies*] Allergy (Verified 10/14/23 08:38) Medication List - Last Reconciled 10/14/23 by Avelina Pierre RN amlodipine 5 mg PO DAILY atorvastatin 20 mg PO DAILY 90 days metoprolol succinate ER 25 mg PO DAILY multivitamin (One-A-Day Essential tablet) 1 tab PO DAILY pyridoxine (vitamin B6) 100 mg PO DAILY 90 days warfarin See Protocol 1-2 tabs per INR results orally daily; Nursing Note INR: 2.2- in therapeutic range of 2-3 Medications and supplements reviewed- no changes No changes in health, diet, medications, or supplements, Denies any signs and symptoms of bleeding or bruising or clotting. Bleeding, bruising, clotting discussed Nutritional guidance given Dose: 3mg x 2, 4mg x 5 F/U INR: 3 weeks Patient verbalizes understanding of instructions given Anti-Coag Initial Assessment Social Hx Patient Tobacco Use Status: Current everyday Tobacco user Tobacco use type: Cigarette Smoking packs per day: 1 alcohol intake: former (quit etoh at age 28) Cardiovascular Hx: HTN and Arrhythmias (afib) Lung Disease HX: Other (hx collapsed lung approx 30 years ago) Blood Disorder Hx: Hyperlipidemia Hx: Bladder Disorders (bladder cancer 2 years ago, hx microscopic hematuria, renal calculi) Cancer HX: Yes Coding Level of Care Code Est Patient Level 1 Diagnoses Current use of anticoagulant therapy Z79.01 Assessment & Plan Assessment & Plan (1) Current use of anticoagulant therapy: Code(s): Z79.01 - [facility]DC (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
[2023-10-14 08:42] LABS: Prothrombin Time Whole Bld POC 26.7 sec (11.1-13.5); ~PT, ~INR - Anti Coag Clinic 2.2 (0.9-1.1)
== END 2023-10-14 08:47 | disposition home or self-care (01) ==
LOC: HO.ACS 08:16
PROVIDERS: PCP Nurse Practitioner Family; Visit Provider Internal Medicine
DX: Z79.01 Long term (current) use of anticoagulants (principal)

== ENCOUNTER → 2023-10-14 08:16 | Outpatient (BNVA) | payer MEDICARE, SELFPAY | PROVIDERS: PCP Nurse Practitioner Family; Visit Provider Internal Medicine | DX: I48.91 Unspecified atrial fibrillation (principal); Z79.01 Long term (current) use of anticoagulants; Z51.81 Encounter for therapeutic drug level monitoring | CPT/HCPCS: 85610; 99211 ==

== ENCOUNTER 2023-10-22 12:50 | Outpatient (AMB) | payer MEDICARE, SELFPAY ==
[2023-10-22 12:54] VITALS: BP 120/68; PULSE 58; BMI 16.7
--- NOTE | 2023-10-22 12:54 | A.OFFVIS_ITS ---
Vital Signs 10/22/23 12:54 Height 6 ft 2 in Weight 130 lb 1.164 oz BMI 16.7 BP 120/68 Blood Pressure Location Lt brachial Position Sitting Pulse 58 Pulse Source Pulse Oximeter Intake Visit Reasons: 6 mth f/up Allergies No Known Allergies [No Known Allergies*] Allergy (Verified 10/14/23 08:38) Medication List - Last Reconciled 10/22/23 by Ute Hill NP amlodipine 5 mg PO DAILY atorvastatin 20 mg PO DAILY 90 days metoprolol succinate ER 25 mg PO DAILY multivitamin (One-A-Day Essential tablet) 1 tab PO DAILY pyridoxine (vitamin B6) 100 mg PO DAILY 90 days warfarin See Protocol 1-2 tabs per INR results orally daily; HPI Comments Details: 72-year-old male presents today for a six-month follow-up. He has a history of AFib on anticoagulation, hypertension, dyslipidemia, and current everyday smoker. He has been on warfarin and reports he has been doing well. He reports no bleeding issues. Denies any chest pains, palpitations, fast heart rates, shortness of breath, or dizziness. He reports he still smokes, does not drink alcohol, and drinks about 6 cups of coffee per day. He states he is not very active overall. [facility] Medical History Atrial fibrillation PAC (premature atrial contraction) Renal calculi History of renal calculi Family history of prostate cancer Immunocompromised CLL (chronic lymphocytic leukemia) Gynecomastia Kidney stones Dyslipidemia Thyroglossal duct cyst Surgical History History of bladder surgery Hx of lithotripsy H/O colonoscopy Family History Father History of prostate cancer Social History Housing: House Alcohol intake: former (quit etoh at age 28) Patient Tobacco Use Status: Current everyday Tobacco user Tobacco use type: Cigarette Cigarette Packs Per Day: 1 Cigarettes Per Day: 20.0 e-Cigarette/Vaping Use: Currently Using (sometimes ) Second Hand Smoke Exposure: No service: No Current occupational status: retired 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[employer], 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 Current occupational exposures/hazards: No Cognitive needs: No Hearing needs: No Vision needs: No Review of Systems Const Denies weakness ENT Denies dizziness Card Denies chest pain, Denies chest pain with activity, Denies syncope, Denies rapid heart rate, Denies pedal edema, Denies edema, Denies leg edema, Denies lightheadedness, Denies palpitations, Denies dyspnea, Denies dyspnea on exertion and Denies orthopnea Resp Denies cough, Denies dyspnea and Denies dyspnea on exertion GI Denies hematochezia and Denies change in stool character Musc Denies abnormal gait, Denies muscle cramps, Denies muscle weakness, Denies numbness, Denies radiating pain into limb and Denies tingling Neuro Denies abnormal gait, Denies dizziness, Denies syncope, Denies numbness, Denies tingling and Denies weakness Endo Denies palpitations Physical Exam Vital Signs: Last Vital Signs Pulse 58 10/22/23 12:54 BP 120/68 10/22/23 12:54 BMI result Body Mass Index 16.7 Const General: healthy appearing and no acute distress Orientation/consciousness: patient oriented x3 HEENT Head: Yes normal to inspection Eyes General: appearance normal, both eyes and all related structures Neck Neck: Yes normal visual inspection Chest Chest palpation & inspection: normal inspection of the chest Resp Effort & Inspection: normal respiratory effort Auscultation: clear to auscultation bilaterally Cardio Jugular venous distension: no JVD Palpation: normal PMI Rate: regular rate Rhythm: regular rhythm Heart sounds: S1 normal heart sound present, S2 normal heart sound present, no click, no gallops, no murmurs and no rubs GI Inspection: Yes normal to inspection Palpation (GI): Soft to palpation Skin General skin exam: no rashes or lesions noted Neuro General: patient oriented x3 Extrem General: Yes normal to inspection Psych Appearance: grossly normal Assessment & Plan Assessment & Plan (1) Atrial fibrillation: Code(s): I48.91 - Unspecified atrial fibrillation Category: Medical (2) Smoking: Code(s): F17.200 - Nicotine dependence, unspecified, uncomplicated Category: Social Hx Plan Patient with history of atrial fibrillation. He is on warfarin and has been reported to be doing well. He is on metoprolol succinate 25 mg. Reports no fast heart rates. Echocardiogram of April 2021 shows ejection fraction of 50- 55% with impaired relaxation filling pattern. We will repeat. Advised complete smoking cessation. Advised to cut back on caffeine intake. Orders: Orders CA echo transthoracic complete 5 Months I48.91 - Unspecified atrial fibrillation Coding Level of Care Code Est Pt Level 3 (53365) Diagnoses Atrial fibrillation I48.91 Smoking F17.200
== END 2023-10-22 13:10 | disposition home or self-care (01) ==
PROVIDERS: PCP Nurse Practitioner Family; Visit Provider Nurse Practitioner
DX: I48.91 Unspecified atrial fibrillation (principal); F17.200 Nicotine dependence, unspecified, uncomplicated
CPT/HCPCS: 99213

== ENCOUNTER → 2023-10-22 12:50 | Outpatient (BNVA) | payer MEDICARE, SELFPAY | PROVIDERS: PCP Nurse Practitioner Family; Visit Provider Nurse Practitioner | DX: I48.91 Unspecified atrial fibrillation (principal); I10 Essential (primary) hypertension; E78.5 Hyperlipidemia, unspecified; F17.210 Nicotine dependence, cigarettes, uncomplicated; Z79.01 Long term (current) use of anticoagulants | CPT/HCPCS: 99212 ==

== ENCOUNTER 2023-11-04 08:16 | Outpatient (AMB) | payer MEDICARE, SELFPAY ==
--- NOTE | 2023-11-04 08:41 | MHC.OFFVISCO ---
Intake Intake Visit Reasons: Anticoagulation Allergies No Known Allergies [No Known Allergies*] Allergy (Verified 11/04/23 08:37) Medication List - Last Reconciled 11/04/23 by Avelina Pierre RN amlodipine 5 mg PO DAILY atorvastatin 20 mg PO DAILY 90 days metoprolol succinate ER 25 mg PO DAILY multivitamin (One-A-Day Essential tablet) 1 tab PO DAILY pyridoxine (vitamin B6) 100 mg PO DAILY 90 days warfarin See Protocol 1-2 tabs per INR results orally daily; Nursing Note INR: 2.0- in therapeutic range of 2-3 Medications and supplements reviewed- no changes No changes in health, diet, medications, or supplements, Denies any signs and symptoms of bleeding or bruising or clotting. Bleeding, bruising, clotting discussed Nutritional guidance given - no greens for 2-3 days, eat reds to raise Dose: 3,g x 2. 4,g x 5 F/U INR: 2 weeks Patient verbalizes understanding of instructions given Anti-Coag Initial Assessment Social Hx Patient Tobacco Use Status: Current everyday Tobacco user Tobacco use type: Cigarette Smoking packs per day: 1 alcohol intake: former (quit etoh at age 28) Cardiovascular Hx: HTN and Arrhythmias (afib) Lung Disease HX: Other (hx collapsed lung approx 30 years ago) Blood Disorder Hx: Hyperlipidemia Hx: Bladder Disorders (bladder cancer 2 years ago, hx microscopic hematuria, renal calculi) Cancer HX: Yes Coding Level of Care Code Est Patient Level 1 Diagnoses Current use of anticoagulant therapy Z79.01 Results AMB INR Fingerstick AMB INR Fingerstick 2.0 Last Edit by Avelina Pierre RN on 11/04/23 08:43 interface delay Assessment & Plan Assessment & Plan (1) Current use of anticoagulant therapy: 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
[2023-11-04 08:43] LABS: Prothrombin Time Whole Bld POC 24.2 sec (11.1-13.5)
== END 2023-11-04 08:46 | disposition home or self-care (01) ==
LOC: HO.ACS 08:16
PROVIDERS: PCP Nurse Practitioner Family; Visit Provider Internal Medicine
DX: Z79.01 Long term (current) use of anticoagulants (principal)

== ENCOUNTER → 2023-11-04 08:16 | Outpatient (BNVA) | payer MEDICARE, SELFPAY | PROVIDERS: PCP Nurse Practitioner Family; Visit Provider Internal Medicine | DX: I48.91 Unspecified atrial fibrillation (principal); Z79.01 Long term (current) use of anticoagulants; Z51.81 Encounter for therapeutic drug level monitoring | CPT/HCPCS: 85610; 99211 ==

== ENCOUNTER 2023-11-18 08:16 | Outpatient (AMB) | payer MEDICARE, SELFPAY ==
--- NOTE | 2023-11-18 08:36 | MHC.OFFVISCO ---
Intake Intake Visit Reasons: Anticoagulation Allergies No Known Allergies [No Known Allergies*] Allergy (Verified 11/18/23 08:31) Medication List - Last Reconciled 11/18/23 by Avelina Pierre RN amlodipine 5 mg PO DAILY atorvastatin 20 mg PO DAILY 90 days metoprolol succinate ER 25 mg PO DAILY multivitamin (One-A-Day Essential tablet) 1 tab PO DAILY pyridoxine (vitamin B6) 100 mg PO DAILY 90 days warfarin See Protocol 1-2 tabs per INR results orally daily; Nursing Note INR: 2.3- in therapeutic range of 2-3 Medications and supplements reviewed- no changes No changes in health, diet, medications, or supplements, Denies any signs and symptoms of bleeding or bruising or clotting. Bleeding, bruising, clotting discussed Nutritional guidance given - has not had many greens, pt instructed to have greens twice a week, made aware consistency is important Dose: 3mg x 2, 4mg x 5 F/U INR: 2 weeks Patient verbalizes understanding of instructions given Anti-Coag Initial Assessment Social Hx Patient Tobacco Use Status: Current everyday Tobacco user Tobacco use type: Cigarette Smoking packs per day: 1 alcohol intake: former (quit etoh at age 28) Cardiovascular Hx: HTN and Arrhythmias (afib) Lung Disease HX: Other (hx collapsed lung approx 30 years ago) Blood Disorder Hx: Hyperlipidemia Hx: Bladder Disorders (bladder cancer 2 years ago, hx microscopic hematuria, renal calculi) Cancer HX: Yes Coding Level of Care Code Est Patient Level 1 Diagnoses Current use of anticoagulant therapy Z79.01 Assessment & Plan Assessment & Plan (1) Current use of anticoagulant therapy: Code(s): Z79.01 - correction (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
[2023-11-18 08:37] LABS: Prothrombin Time Whole Bld POC 27.2 sec (11.1-13.5); ~PT, ~INR - Anti Coag Clinic 2.3 (0.9-1.1)
== END 2023-11-18 08:42 | disposition home or self-care (01) ==
LOC: HO.ACS 08:16
PROVIDERS: PCP Nurse Practitioner Family; Visit Provider Internal Medicine
DX: Z79.01 Long term (current) use of anticoagulants (principal)

== ENCOUNTER → 2023-11-18 08:16 | Outpatient (BNVA) | payer MEDICARE, SELFPAY | PROVIDERS: PCP Nurse Practitioner Family; Visit Provider Internal Medicine | DX: I48.91 Unspecified atrial fibrillation (principal); Z79.01 Long term (current) use of anticoagulants; Z51.81 Encounter for therapeutic drug level monitoring | CPT/HCPCS: 85610; 99211 ==

== ENCOUNTER 2023-11-23 08:54 | Outpatient (AMB) | payer MEDICARE, SELFPAY ==
[2023-11-23 08:58] VITALS: BP 118/70; PULSE 60; O2SAT 98; BMI 16.9
--- NOTE | 2023-11-23 08:59 | A.OFFVIS_ITS ---
Intake Vital Signs 11/23/23 08:58 Height 6 ft 2 in Weight 132 lb BMI 16.9 BP 118/70 Blood Pressure Location Rt brachial Position Sitting Pulse 60 Pulse Source Pulse Oximeter Pulse Oximetry (%) 98 Intake Visit Reasons: SWV G0439 Intake Note: pt is here for medicare wellness visit It Support Technician Required: No Accompanied by: Self / Same As Patient Allergies No Known Allergies [No Known Allergies*] Allergy (Verified 11/23/23 09:36) Medication List - Last Reconciled 11/23/23 by JACK Mliler amlodipine 5 mg PO DAILY atorvastatin 20 mg PO DAILY 90 days metoprolol succinate ER 25 mg PO DAILY multivitamin (One-A-Day Essential tablet) 1 tab PO DAILY pyridoxine (vitamin B6) 100 mg PO DAILY 90 days warfarin See Protocol 1-2 tabs per INR results orally daily; Do you need a note to return to daycare/school/sports/work: No HPI SWV G0439 HPI Details Pt is here for an SWV. Denies fever, chills, and dizziness. [place] of care was not filled out. PPP will be scanned in chart and copy will be given to pt. Pt goes for LDCT yearly. Pt follows up with urology and cardiology. HPI Comments History of Present Illness Details Dyslipidemia: On atorvastatin 20mg. Will order labs. [facility] Medical History Atrial fibrillation PAC (premature atrial contraction) Renal calculi History of renal calculi Family history of prostate cancer Immunocompromised CLL (chronic lymphocytic leukemia) Gynecomastia Kidney stones Dyslipidemia Thyroglossal duct cyst Surgical History History of bladder surgery Hx of lithotripsy H/O colonoscopy Family History Father History of prostate cancer Social History Housing: House Alcohol intake: former (quit etoh at age 28) Patient Tobacco Use Status: Current everyday Tobacco user Tobacco use type: Cigarette Cigarette Packs Per Day: 1 Cigarettes Per Day: 20.0 e-Cigarette/Vaping Use: Currently Using (sometimes ) Second Hand Smoke Exposure: No service: No Current occupational status: retired 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[employer], 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 Current occupational exposures/hazards: No Cognitive needs: No Hearing needs: No Vision needs: No Questionnaire Medicare Wellness Checkup [age] What gender do you identify with?: male During the past 4 weeks, how much have you been bothered by emotional problems such as feeling anxious, depressed, irritable, sad or downhearted, and blue?: not at all During the past 4 weeks, has your physical & emotional health limited your social activities with family, friends, neighbors, or groups?: not at all During the past 4 weeks, how much bodily pain have you generally had?: no pain During the past 4 weeks, was someone available to help you if you needed & wanted help?: yes, as much as I wanted During the past 4 weeks, what was the hardest physical activity you could do for at least 2 minutes?: heavy Can you get to places out of walking distance without help? (For eg., can you travel alone on buses, taxis or drive your car?): Yes Can you go shopping for groceries or clothes without someone's help?: Yes Can you prepare your own meals?: Yes Can you do your housework without help?: Yes Because of any health problems, do you need the help of another person with your personal care needs such as eating, bathing, dressing or getting around the house?: Yes Can you handle your own money without help?: No During the past 4 weeks, how would you rate your health in general?: good During the past 4 weeks how have things been going for you?: pretty well Are you having difficulties driving your car?: no Do you always fasten your seat belt when you are in a car?: yes, usually During past 4 weeks, have you been bothered by the following: never: Falling or dizzy when standing up, Sexual problems?, Trouble eating well?, Teeth or denture problems?, Problems using the telephone? and Tiredness or fatigue? Have you fallen 2 or more times in the past year?: No Are you afraid of falling?: No Are you a smoker?: yes, and I might quit During the past 4 weeks, how many drinks of wine, beer, or other alcoholic beverages did you have?: no alcohol at all Do you exercise for about 20 minutes 3 or more times a week?: yes, most of the time Have you been given information to help with the following?: no: Hazards in your house that might hurt you? and no: Keeping track of your medications? How often do you have trouble taking medicines the way you have been told to take them?: I always take medicine as prescribed How confident are you that you can control & manage most of your health problems?: very confident What is your race?: White Mini Mental State Exam (MMSE) Orientation What is the (year) (season) (date) (day) (month)?: year, season, date, day and month Where are we (state) (county) (town or city) (hospital) (floor)?: state, county, town or city, hospital/clinic and floor Registration Name of 3 unrelated objects clearly and slowly, then ask patient to repeat all 3 of them. (1st repeat determines score. Make sure they can repeat all three): object 1, object 2 and object 3 Attention & Calculation (CHOOSE ONE) Spell WORLD backwards (DLROW): 2 letters Recall Ask patient to repeat the 3 items from question #3.: object 1, object 2 and object 3 Language Show patient a wristwatch & ask what it is. Repeat for pencil.: watch and pencil Ask the patient to repeat the phrase 'No ifs, ands, or buts' after you.: correct Ask the patient to 'take a piece of paper with their right hand' 'fold paper in half' 'place paper on floor': take paper in right hand, fold paper in half and place paper on floor Print the sentence 'CLOSE YOUR EYES' on a piece. If patient actually closes eyes then score.: followed written direction Give patient a blank piece of paper & ask to write a sentence. Score if it contains a noun & verb.: sentence contains subject and verb Ask patient to copy figure of intersecting pentagons exactly. Score if all 10 angles & 2 intersects are included.: all 10 angles present & 2 are intersected Score Score: 27 PHQ-9 Over the last 2 weeks, how often have you been bothered by any of the following problems? 1. Little interest or pleasure in doing things: not at all 2. Feeling down, depressed, or hopeless: not at all 3. Trouble falling or staying asleep, or sleeping too much: not at all 4. Feeling tired or having little energy: not at all 5. Poor appetite or overeating: not at all 6. Feeling bad about yourself - or that you are a failure or have let yourself or your family down: not at all 7. Trouble concentrating on things, such as reading the newspaper or watching television: not at all 8. Moving or speaking so slowly that other people could have noticed. Or the opposite - being so fidgety or restless that you have been moving around a lot more than usual: not at all 9. Thoughts that you would be better off or of hurting yourself in some way: not at all Total score: 0 Depression Screening Interpretation: Negative Depression Screening Done: Yes 31153 - PHQ-9 Billing: Yes Source: Developed by Drs. Darren Pepper, Natalie Bhatia, Tk Neumann and colleagues, with an educational ralph from [employer]. Review of Systems Const Reports as per HPI Physical Exam Vital Signs: Last Vital Signs Pulse 60 11/23/23 08:58 BP 118/70 11/23/23 08:58 Pulse Ox 98 11/23/23 08:58 BMI result Body Mass Index 16.9 Const General: cooperative Orientation/consciousness: patient oriented x3 Resp Effort & Inspection: normal respiratory effort Auscultation: diminished lung sounds Cardio Rate: regular rate Rhythm: regular rhythm Heart sounds: S1 normal heart sound present and S2 normal heart sound present Neuro Other: - romberg, can tandem walk, can walk and turn, can rise from sitting to standing, passed whisper test General: patient oriented x3 Psych Appearance: grossly normal Mental Status: mental status grossly normal Speech and movement: Normal speech and movement present Affect: normal affect Attitude: cooperative Thought process: Normal thought process present Thought content: Normal thought content present Insight: Good insight present (Psych) Judgement: Good judgement present (Psych) Assessment & Plan Assessment & Plan (1) Dyslipidemia: Code(s): E78.5 - Hyperlipidemia, unspecified Plan: Labs ordered (2) Screening PSA (prostate specific antigen): Code(s): Z12.5 - Encounter for screening for malignant neoplasm of prostate Plan: PSA ordered (3) Smoking: Code(s): F17.200 - Nicotine dependence, unspecified, uncomplicated Plan: Goes for LDCT (4) Encounter for subsequent annual wellness visit in Medicare patient: Code(s): Z00.00 - Encounter for general adult medical examination without abnormal findings Plan The patient agreed to the use of a certified court/medical interpreter for this encounter. Scribed for SALLIE Avendaño-BC by Reny Shaw certified court/medical interpreter, on 11/23/2023 at 09:15 EST. Orders: Orders Comprehensive [place]. Panel Fast Today E78.5 - Hyperlipidemia, unspecified UA CC w/rflx Micro + Cult Today E78.5 - Hyperlipidemia, unspecified Complete Blood Count Auto Diff Today E78.5 - Hyperlipidemia, unspecified TSH reflex Free T4 Today E78.5 - Hyperlipidemia, unspecified Lipid Panel Today E78.5 - Hyperlipidemia, unspecified Prostate Specific Antigen Scr Today Z12.5 - Encounter for screening for malignant neoplasm of prostate XR DEXA axial skeleton Today F17.200 - Nicotine dependence, unspecified, uncomplicated Quality Reporting (2019) Depression/Bipolar (159/160/161/177) PHQ-9: Total score: 0 Coding Level of Care Code Medicare Subsequent (G0439) Est Pt Level 3 (09917) Diagnoses Dyslipidemia E78.5 Screening PSA (prostate specific antigen) Z12.5 Smoking F17.200 Encounter for subsequent annual wellness visit in Medicare patient Z00.00 CPT Codes Advance Care Planning - Time spent: 1-15 minutes, on File ([id number]) Advance Care Planning Forms completed: Health Care Proxy (form given to pt), MOLST (form given to pt) and Living will (not done yet, recommended getting done) Time spent: 1-15 minutes, on File Actual minutes spent: 15 Did not discuss due to Cultural/Spiritual beliefs: No
== END 2023-11-23 09:37 | disposition home or self-care (01) ==
PROVIDERS: PCP Nurse Practitioner Family; Visit Provider Nurse Practitioner Family
DX: Z00.00 Encounter for general adult medical examination without abnormal findings (principal); E78.5 Hyperlipidemia, unspecified; Z12.5 Encounter for screening for malignant neoplasm of prostate; F17.200 Nicotine dependence, unspecified, uncomplicated

== ENCOUNTER → 2023-11-23 08:54 | Outpatient (BNVA) | payer MEDICARE, SELFPAY | PROVIDERS: PCP Nurse Practitioner Family; Visit Provider Nurse Practitioner Family ==

== ENCOUNTER 2023-12-02 08:12 | Outpatient (AMB) | payer MEDICARE, SELFPAY ==
--- NOTE | 2023-12-02 08:25 | MHC.OFFVISCO ---
Intake Intake Visit Reasons: Anticoagulation Allergies No Known Allergies [No Known Allergies*] Allergy (Verified 12/02/23 08:19) Medication List - Last Reconciled 12/02/23 by Avelina Pierre RN amlodipine 5 mg PO DAILY atorvastatin 20 mg PO DAILY 90 days metoprolol succinate ER 25 mg PO DAILY multivitamin (One-A-Day Essential tablet) 1 tab PO DAILY pyridoxine (vitamin B6) 100 mg PO DAILY 90 days warfarin See Protocol 1-2 tabs per INR results orally daily; Nursing Note INR: 2-3 in therapeutic range Medications and supplements reviewed No changes in health, diet, medications, or supplements, Denies any signs and symptoms of bleeding or bruising or clotting. Bleeding, bruising, clotting discussed Nutritional guidance given Dose: 3mg x 2, 4mg x 5 F/U INR: pt req 2 weeks Patient verbalizes understanding of instructions given upcoming poss cataract surg Anti-Coag Initial Assessment Social Hx Patient Tobacco Use Status: Current everyday Tobacco user Tobacco use type: Cigarette Smoking packs per day: 1 alcohol intake: former (quit etoh at age 28) Cardiovascular Hx: HTN and Arrhythmias (afib) Lung Disease HX: Other (hx collapsed lung approx 30 years ago) Blood Disorder Hx: Hyperlipidemia Hx: Bladder Disorders (bladder cancer 2 years ago, hx microscopic hematuria, renal calculi) Cancer HX: Yes Coding Level of Care Code Est Patient Level 1 Diagnoses Current use of anticoagulant therapy Z79.01 Assessment & Plan Assessment & Plan (1) Current use of anticoagulant therapy: Code(s): Z79.01 - custodial (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
[2023-12-02 08:27] LABS: Prothrombin Time Whole Bld POC 28.5 sec (11.1-13.5); ~PT, ~INR - Anti Coag Clinic 2.4 (0.9-1.1)
== END 2023-12-02 08:31 | disposition home or self-care (01) ==
LOC: HO.ACS 08:12
PROVIDERS: PCP Nurse Practitioner Family; Visit Provider Internal Medicine
DX: Z79.01 Long term (current) use of anticoagulants (principal)

== ENCOUNTER → 2023-12-02 08:12 | Outpatient (BNVA) | payer MEDICARE, SELFPAY | PROVIDERS: PCP Nurse Practitioner Family; Visit Provider Internal Medicine | DX: I48.91 Unspecified atrial fibrillation (principal); Z79.01 Long term (current) use of anticoagulants; Z51.81 Encounter for therapeutic drug level monitoring | CPT/HCPCS: 85610; 99211 ==

== ENCOUNTER 2023-12-16 08:18 | Outpatient (AMB) | payer MEDICARE, SELFPAY ==
[2023-12-16 08:39] LABS: Prothrombin Time Whole Bld POC 35.6 sec (11.1-13.5)
--- NOTE | 2023-12-16 08:44 | MHC.OFFVISCO ---
Intake Intake Visit Reasons: Anticoagulation Allergies No Known Allergies [No Known Allergies*] Allergy (Verified 12/16/23 08:33) Medication List - Last Reconciled 12/16/23 by Rina Rivera RN amlodipine 5 mg PO DAILY atorvastatin 20 mg PO DAILY 90 days metoprolol succinate ER 25 mg PO DAILY multivitamin (One-A-Day Essential tablet) 1 tab PO DAILY pyridoxine (vitamin B6) 100 mg PO DAILY 90 days warfarin See Protocol 1-2 tabs per INR results orally daily; Nursing Note NO CP,SOB,DIET/MED CHANGES,FALLSOR SX OF BLEEDING. CONTINUE PRESENT DOSE AND FOLLOW-UP IN 2 WEEKS. GOOD UNDERSTANDING OF DOSING INSTR. Anti-Coag Initial Assessment Social Hx Patient Tobacco Use Status: Current everyday Tobacco user Tobacco use type: Cigarette Smoking packs per day: 1 alcohol intake: former (quit etoh at age 28) Cardiovascular Hx: HTN and Arrhythmias (afib) Lung Disease HX: Other (hx collapsed lung approx 30 years ago) Blood Disorder Hx: Hyperlipidemia Hx: Bladder Disorders (bladder cancer 2 years ago, hx microscopic hematuria, renal calculi) Cancer HX: Yes Coding Level of Care Code Est Patient Level 1 Diagnoses Current use of anticoagulant therapy Z79.01 Assessment & Plan Assessment & Plan (1) Current use of anticoagulant therapy: 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
== END 2023-12-16 08:47 | disposition home or self-care (01) ==
LOC: HO.ACS 08:18
PROVIDERS: PCP Nurse Practitioner Family; Visit Provider Internal Medicine
DX: Z79.01 Long term (current) use of anticoagulants (principal)

== ENCOUNTER → 2023-12-16 08:18 | Outpatient (BNVA) | payer MEDICARE, SELFPAY | PROVIDERS: PCP Nurse Practitioner Family; Visit Provider Internal Medicine | DX: I48.91 Unspecified atrial fibrillation (principal); Z79.01 Long term (current) use of anticoagulants; Z51.81 Encounter for therapeutic drug level monitoring | CPT/HCPCS: 85610; 99211 ==

== ENCOUNTER 2023-12-24 08:07 | Outpatient (REF) | payer MEDICARE, SELFPAY ==
--- NOTE | ~2023-12-24 | MM_ITS ---
EXAMINATION: BONE DENSITOMETRY CLINICAL INDICATION: Nicotine dependence, unspecified, uncomplicated. COMPARISON: This is the patient's baseline examination. TECHNIQUE: Using a [employer] DXA System (software version: 13.1) manufactured by [email or web address], dual-energy x-ray absorptiometry was performed of the lumbar spine and left hip. The images are of good technical quality. Summary results are attached. FINDINGS: AP SPINE L1-L4: BMD 1.098 g/cm2, Z-score 0.2, T-score -1.0, normal. LEFT FEMUR, NECK: BMD 0.832 g/cm2, Z-score -0.1, T-score -1.8, osteopenia. LEFT FEMUR, TOTAL: BMD 0.850 g/cm2, Z-score -0.5, T-score -1.7, osteopenia. IDENTIFIED RISK FACTORS: Current smoker. HISTORY OF FRACTURE: None listed. MEDICATIONS: Calcium supplement and/or multivitamin. MM/XR DEXA axial skeleton IMPRESSION: 1. DIAGNOSIS: Osteopenia based on the lowest T-score value of -1.8 in the femoral neck applying World Health Organization criteria. 2. 10-YEAR FRACTURE RISK PREDICTION, FRAX: Major osteoporotic fracture (clinical spine, forearm, hip or shoulder) 5.7%. Hip fracture 2.7%. 3. Treatment Recommendations: NOF guidelines recommend consideration for treatment in postmenopausal women and men age 50 and older presenting with the following: -A hip or vertebral (clinical or morphometric) fracture. -T-score less than or equal to -2.5 at the femoral neck or spine after appropriate evaluation to exclude secondary causes. -Low bone mass at the hip or spine and a 10-year fracture probability by FRAX of greater than or equal to 3% for hip fracture or greater than or equal to 20% for major osteoporotic fracture based on the [place] adapted WHO algorithm. 4. Other Recommendations: All treatment decisions require clinical judgment and consideration of individual patient factors, including patient preferences, comorbidities, previous drug use, risk factors not captured in the FRAX model (e.g. frailty, falls, vitamin D deficiency, increased bone turnover, interval significant decline in bone density) and possible under or overestimation of fracture risk by FRAX. Additional medical evaluation for secondary cause of low bone mineral density may be appropriate. FUTURE SCAN RECOMMENDATION: People with diagnosed cases of osteoporosis or at high risk for fracture should have regular bone mineral density tests. For patients eligible for Medicare, routine testing is allowed once every 2 years. The testing frequency can be increased to one year for patients who have rapidly progressing disease, those who are receiving or discontinuing medical therapy to restore bone mass, or have additional risk factors. Electronically signed by: Nunu Hernandez MD 12/24/2023 03:39 PM EDT
== END 2023-12-24 08:08 | disposition home or self-care (01) ==
LOC: HO.MAMMO 08:07
PROVIDERS: PCP Nurse Practitioner Family; Visit Provider Nurse Practitioner Family
DX: Z13.820 Encounter for screening for osteoporosis (principal); C91.10 Chronic lymphocytic leukemia of B-cell type not having achieved remission; F17.200 Nicotine dependence, unspecified, uncomplicated
CPT/HCPCS: 77080

== ENCOUNTER 2023-12-30 08:11 | Outpatient (AMB) | payer MEDICARE, SELFPAY ==
[2023-12-30 08:26] LABS: Prothrombin Time Whole Bld POC 22.1 sec (11.1-13.5); ~PT, ~INR - Anti Coag Clinic 1.8 (0.9-1.1)
--- NOTE | 2023-12-30 08:32 | MHC.OFFVISCO ---
Intake Intake Visit Reasons: Anticoagulation Allergies No Known Allergies [No Known Allergies*] Allergy (Verified 12/30/23 08:17) Medication List - Last Reconciled 12/30/23 by Rina Rivera RN amlodipine 5 mg PO DAILY atorvastatin 20 mg PO DAILY 90 days metoprolol succinate ER 25 mg PO DAILY multivitamin (One-A-Day Essential tablet) 1 tab PO DAILY pyridoxine (vitamin B6) 100 mg PO DAILY 90 days warfarin See Protocol 1-2 tabs per INR results orally daily; Nursing Note PT'S 5 DAYS AGO. NO MISSED DOSES,CP,SOB,MED CHANGES OR SX OF BLEEDING. BOOST TO 6MGM TODAY ONLY THEN RESUME PREVIOUS DOSE AND FOLLOW-UP IN 2 WEEKS. GOOD UNDERSTANDING OF DOSING INSTR. NO GREENS 1-2 DAYS Anti-Coag Initial Assessment Social Hx Patient Tobacco Use Status: Current everyday Tobacco user Tobacco use type: Cigarette Smoking packs per day: 1 alcohol intake: former (quit etoh at age 28) Cardiovascular Hx: HTN and Arrhythmias (afib) Lung Disease HX: Other (hx collapsed lung approx 30 years ago) Blood Disorder Hx: Hyperlipidemia Hx: Bladder Disorders (bladder cancer 2 years ago, hx microscopic hematuria, renal calculi) Cancer HX: Yes Coding Level of Care Code Est Patient Level 1 Diagnoses Current use of anticoagulant therapy Z79.01 Assessment & Plan Assessment & Plan (1) Current use of anticoagulant therapy: 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
== END 2023-12-30 08:35 | disposition home or self-care (01) ==
LOC: HO.ACS 08:11
PROVIDERS: PCP Nurse Practitioner Family; Visit Provider Internal Medicine
DX: Z79.01 Long term (current) use of anticoagulants (principal)

== ENCOUNTER → 2023-12-30 08:11 | Outpatient (BNVA) | payer MEDICARE, SELFPAY | PROVIDERS: PCP Nurse Practitioner Family; Visit Provider Internal Medicine | DX: I48.91 Unspecified atrial fibrillation (principal); Z79.01 Long term (current) use of anticoagulants; Z51.81 Encounter for therapeutic drug level monitoring | CPT/HCPCS: 85610; 99211 ==

== ENCOUNTER 2024-01-13 08:32 | Outpatient (AMB) | payer MEDICARE, SELFPAY ==
[2024-01-13 08:57] LABS: Prothrombin Time Whole Bld POC 25.6 sec (11.1-13.5); ~PT, ~INR - Anti Coag Clinic 2.1 (0.9-1.1)
--- NOTE | 2024-01-13 09:01 | MHC.OFFVISCO ---
Intake Intake Visit Reasons: Anticoagulation Allergies No Known Allergies [No Known Allergies*] Allergy (Verified 01/13/24 08:50) Medication List - Last Reconciled 01/13/24 by Bridgett Baker RN amlodipine 5 mg PO DAILY atorvastatin 20 mg PO DAILY 90 days metoprolol succinate ER 25 mg PO DAILY multivitamin (One-A-Day Essential tablet) 1 tab PO DAILY pyridoxine (vitamin B6) 100 mg PO DAILY 90 days warfarin See Protocol 1-2 tabs per INR results orally daily; Nursing Note Amb to [facility] feeling well, sts his 3 weeks ago, sts not eating great, sts has family living with him Medications and supplements reviewed No other changes in health, diet, medications, or supplements, Denies any signs and symptoms of bleeding, bruising, or clotting. Bleeding, bruising, clotting discussed INR: 2.1 just in therapeutic range Dose: continue usual 3mg x 2 days and 4mg x 5 days, sts he gets enough warfarin each refill not a big veggie eater, encouraged to eat a healthy diet, balance and be consistent, food options reviewed F/U INR: 2 weeks Patient verbalizes understanding of instructions given Anti-Coag Initial Assessment Social Hx Patient Tobacco Use Status: Current everyday Tobacco user Tobacco use type: Cigarette Smoking packs per day: 1 alcohol intake: former (quit etoh at age 28) Cardiovascular Hx: HTN and Arrhythmias (afib) Lung Disease HX: Other (hx collapsed lung approx 30 years ago) Blood Disorder Hx: Hyperlipidemia Hx: Bladder Disorders (bladder cancer 2 years ago, hx microscopic hematuria, renal calculi) Cancer HX: Yes Coding Level of Care Code Est Patient Level 1 Diagnoses Current use of anticoagulant therapy Z79.01 Time Spent (min) 15 Assessment & Plan Assessment & Plan (1) Current use of anticoagulant therapy: Code(s): Z79.01 - jail (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
== END 2024-01-13 09:06 | disposition home or self-care (01) ==
LOC: HO.ACS 08:32
PROVIDERS: PCP Nurse Practitioner Family; Visit Provider Internal Medicine
DX: Z79.01 Long term (current) use of anticoagulants (principal)

== ENCOUNTER → 2024-01-13 08:32 | Outpatient (BNVA) | payer MEDICARE, SELFPAY | PROVIDERS: PCP Nurse Practitioner Family; Visit Provider Internal Medicine | DX: I48.91 Unspecified atrial fibrillation (principal); Z79.01 Long term (current) use of anticoagulants; Z51.81 Encounter for therapeutic drug level monitoring | CPT/HCPCS: 85610; 99211 ==

== ENCOUNTER 2024-01-27 08:32 | Outpatient (AMB) | payer MEDICARE, SELFPAY ==
--- NOTE | 2024-01-27 08:49 | MHC.OFFVISCO ---
Intake Intake Visit Reasons: Anticoagulation Allergies No Known Allergies [No Known Allergies*] Allergy (Verified 01/27/24 08:42) Medication List - Last Reconciled 01/27/24 by Avelina Pierre RN amlodipine 5 mg PO DAILY atorvastatin 20 mg PO DAILY 90 days cholecalciferol (vitamin D3) 50 mcg PO DAILY metoprolol succinate ER 25 mg PO DAILY multivitamin (One-A-Day Essential tablet) 1 tab PO DAILY pyridoxine (vitamin B6) 100 mg PO DAILY 90 days warfarin See Protocol 1-2 tabs per INR results orally daily; Nursing Note INR: 2.7- in therapeutic range of 2-3 Medications and supplements reviewed- pt now on vit d, no interaction with warfarin No changes in health, diet, medications, or supplements, Denies any signs and symptoms of bleeding or bruising or clotting. Bleeding, bruising, clotting discussed Nutritional guidance given Dose: 3mg x 2, 4mg x 5 F/U INR: 2 weeks Patient verbalizes understanding of instructions given Anti-Coag Initial Assessment Social Hx Patient Tobacco Use Status: Current everyday Tobacco user Tobacco use type: Cigarette Smoking packs per day: 1 alcohol intake: former (quit etoh at age 28) Cardiovascular Hx: HTN and Arrhythmias (afib) Lung Disease HX: Other (hx collapsed lung approx 30 years ago) Blood Disorder Hx: Hyperlipidemia Hx: Bladder Disorders (bladder cancer 2 years ago, hx microscopic hematuria, renal calculi) Cancer HX: Yes Coding Level of Care Code Est Patient Level 1 Diagnoses Current use of anticoagulant therapy Z79.01 Results AMB INR Fingerstick AMB INR Fingerstick 2.7 Last Edit by Avelina Pierre RN on 01/27/24 08:51 interface delay Assessment & Plan Assessment & Plan (1) Current use of anticoagulant therapy: Code(s): Z79.01 - 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
[2024-01-27 08:50] LABS: Prothrombin Time Whole Bld POC 31.8 sec (11.1-13.5); ~PT, ~INR - Anti Coag Clinic 2.7 (0.9-1.1)
== END 2024-01-27 08:55 | disposition home or self-care (01) ==
LOC: HO.ACS 08:32
PROVIDERS: PCP Nurse Practitioner Family; Visit Provider Internal Medicine
DX: Z79.01 Long term (current) use of anticoagulants (principal)

== ENCOUNTER → 2024-01-27 08:32 | Outpatient (BNVA) | payer MEDICARE, SELFPAY | PROVIDERS: PCP Nurse Practitioner Family; Visit Provider Internal Medicine | DX: I48.91 Unspecified atrial fibrillation (principal); Z79.01 Long term (current) use of anticoagulants; Z51.81 Encounter for therapeutic drug level monitoring | CPT/HCPCS: 85610; 99211 ==

== ENCOUNTER 2024-02-10 08:23 | Outpatient (AMB) | payer MEDICARE, SELFPAY ==
[2024-02-10 08:31] LABS: Prothrombin Time Whole Bld POC 31.9 sec (11.1-13.5); ~PT, ~INR - Anti Coag Clinic 2.7 (0.9-1.1)
--- NOTE | 2024-02-10 08:35 | MHC.OFFVISCO ---
Intake Intake Visit Reasons: Anticoagulation Allergies No Known Allergies [No Known Allergies*] Allergy (Verified 02/10/24 08:24) Medication List - Last Reconciled 02/10/24 by Rina Rivera RN amlodipine 5 mg PO DAILY atorvastatin 20 mg PO DAILY 90 days cholecalciferol (vitamin D3) 50 mcg PO DAILY metoprolol succinate ER 25 mg PO DAILY multivitamin (One-A-Day Essential tablet) 1 tab PO DAILY pyridoxine (vitamin B6) 100 mg PO DAILY 90 days warfarin See Protocol 1-2 tabs per INR results orally daily; Nursing Note PT.HAS STARTED VITAMIN D3. NO CP,SOB,DIET CHANGES,FALLS OR NSX OF BLEEDING. CONTINUE PRESENT DOSE AND FOLLOW-UP IN 3 WEEKS GOOD NUNDERSTANDFING OF DOSING INSTR. Anti-Coag Initial Assessment Social Hx Patient Tobacco Use Status: Current everyday Tobacco user Tobacco use type: Cigarette Smoking packs per day: 1 alcohol intake: former (quit etoh at age 28) Cardiovascular Hx: HTN and Arrhythmias (afib) Lung Disease HX: Other (hx collapsed lung approx 30 years ago) Blood Disorder Hx: Hyperlipidemia Hx: Bladder Disorders (bladder cancer 2 years ago, hx microscopic hematuria, renal calculi) Cancer HX: Yes Coding Level of Care Code Est Patient Level 1 Diagnoses Current use of anticoagulant therapy Z79.01 Assessment & Plan Assessment & Plan (1) Current use of anticoagulant therapy: Code(s): Z79.01 - [facility] (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
== END 2024-02-10 08:40 | disposition home or self-care (01) ==
LOC: HO.ACS 08:23
PROVIDERS: PCP Nurse Practitioner Family; Visit Provider Internal Medicine
DX: Z79.01 Long term (current) use of anticoagulants (principal)

== ENCOUNTER → 2024-02-10 08:23 | Outpatient (BNVA) | payer MEDICARE, SELFPAY | PROVIDERS: PCP Nurse Practitioner Family; Visit Provider Internal Medicine | DX: I48.91 Unspecified atrial fibrillation (principal); Z79.01 Long term (current) use of anticoagulants; Z51.81 Encounter for therapeutic drug level monitoring | CPT/HCPCS: 85610; 99211 ==

== ENCOUNTER 2024-02-22 06:38 | Outpatient (REF) | payer MEDICARE, SELFPAY ==
[2024-02-22 10:12] LABS: Appearance Urine Clear; Color Urine Yellow; Glucose Urine UA Negative (Negative); Leukocyte Esterase Urine Negative (Negative); Nitrite Urine Negative (Negative); Specific Gravity - Urine 1.015 (1.005-1.025); UMIC TRIGGER UACC YES; Urine Blood Moderate (2+) (Negative); Urine Ketones Negative (Negative); Urine Protein Negative (Neg-Trace)
[2024-02-22 10:15] LABS: Bacteria Urine None Seen (None Seen); Hyaline Casts Urine 0-2 /LPF (0-2); Squamous Epithelial Cell Urine 0-2 /HPF (0-2); WBC Urine 0-5 /HPF (0-5)
[2024-02-22 10:19] LABS: Basophils Absolute Auto 0.1 X10*3/uL (0.0-0.2); Basophils Percent Auto 0.5 % (0-2); Eosinophils Absolute Auto 0.4 X10*3/uL (0.0-0.4); Eosinophils Percent Auto 1.6 % (0-4); Hematocrit 41.9 % (42.0-52.0); Hemoglobin 13.8 g/dl (14.0-18.0); Imm Gran Abs Auto 0.04 X10*3/uL (0.00-0.03); Imm Gran Pct Auto 0.2 % (0.0-0.4); Lymphocytes Percent Auto 76.5 % (20-40); MANUAL DIFF FLAG SCAN; Mean Corpuscular HGB Conc 32.9 g/dl (31.0-36.0); Mean Corpuscular Hemoglobin 32.5 pg (27.0-33.0); Mean Corpuscular Volume 98.6 fL (80.0-98.0); Mean Platelet Volume 9.2 fL (9.4-12.4); Monocytes Absolute Auto 0.9 X10*3/uL (0.1-1.2); Monocytes Percent Auto 4.3 % (2-11); NRBC Pct Auto 0.1 /100WBC (0.0-0.2); Neutrophils Absolute Auto 3.7 x10*3/uL (2.0-8.3); Neutrophils Percent Auto 16.9 % (45-73); Platelet Count 281 X10*3/uL (160-400); Red Blood Count 4.25 X10*6/uL (4.60-5.80); Red Cell Distribution Width 13.6 % (11.0-16.0); SCAN SMEAR FLAG 1
[2024-02-22 10:20] LABS: Lymphocytes Absolute Auto 16.8 X10*3/uL (1.2-4.9)
[2024-02-22 10:48] LABS: Alanine Aminotransferase 33 U/L (0-40); Albumin Level 3.8 g/dL (3.5-5.0); Alkaline Phosphatase 105 U/L (39-117); Anion Gap 11 (12-20); Aspartate Amino Transferase 39 U/L (5-37); Bilirubin Total 0.7 mg/dL (0.0-1.0); Blood Urea Nitrogen 15 mg/dL (9-16); Calcium 8.7 mg/dL (8.4-10.2); Carbon Dioxide 29 mmol/L (22-29); Chloride 104 mmol/L (96-108); Cholesterol 108 mg/dL (<200); Estimated Glomerular Filt Rate > 60; Glucose Fasting 86 mg/dL (60-99); HDL Cholesterol 41 mg/dL (>40); LDL Cholesterol Calculated 56 mg/dL (<100); Potassium 4.1 mmol/L (3.3-5.1); Sodium 140 mmol/L (135-145); Total Protein 6.3 g/dL (6.5-8.0); Triglycerides 55 mg/dL (<150)
[2024-02-22 10:50] LABS: TSH reflex Free T4 0.06 uIU/mL (0.32-4.0)
[2024-02-22 10:52] LABS: Prostate Specific Antigen Scr 0.77 ng/mL (<0.05-4.0)
[2024-02-22 11:09] LABS: SLIDE REVIEW VERIFIED
[2024-02-22 12:04] LABS: Free T4 (Free Thyroxine) 0.97 ng/dL (0.71-1.85)
== END 2024-02-22 06:39 | disposition home or self-care (01) ==
LOC: HO.HMGCLDS 06:38
PROVIDERS: PCP Nurse Practitioner Family; Visit Provider Nurse Practitioner Family
DX: E78.5 Hyperlipidemia, unspecified (principal); Z12.5 Encounter for screening for malignant neoplasm of prostate
CPT/HCPCS: 36415; 80053; 80061; 81001; 84153; 84439; 84443; 85025

== ENCOUNTER 2024-03-01 08:10 | Outpatient (AMB) | payer MEDICARE, SELFPAY ==
--- NOTE | 2024-03-01 08:29 | MHC.OFFVISCO ---
Intake Intake Visit Reasons: Anticoagulation Allergies No Known Allergies [No Known Allergies*] Allergy (Verified 03/01/24 08:21) Medication List - Last Reconciled 03/01/24 by Bridgett Yoon RN amlodipine 5 mg PO DAILY atorvastatin 20 mg PO DAILY 90 days cholecalciferol (vitamin D3) 50 mcg PO DAILY metoprolol succinate ER 25 mg PO DAILY multivitamin (One-A-Day Essential tablet) 1 tab PO DAILY pyridoxine (vitamin B6) 100 mg PO DAILY 90 days warfarin See Protocol 1-2 tabs per INR results orally daily; Nursing Note INR: 2.6 in therapeutic range of 2-3 Medications and supplements reviewed No changes in health, diet, medications, or supplements, Denies any signs and symptoms of bleeding or bruising or clotting. Bleeding, bruising, clotting discussed Nutritional guidance given Dose: 4mg X 5 days and 3mg X 2 days F/U INR: 3 weeks Patient verbalizes understanding of instructions given Anti-Coag Initial Assessment Social Hx Patient Tobacco Use Status: Current everyday Tobacco user Tobacco use type: Cigarette Smoking packs per day: 1 alcohol intake: former (quit etoh at age 28) Cardiovascular Hx: HTN and Arrhythmias (afib) Lung Disease HX: Other (hx collapsed lung approx 30 years ago) Blood Disorder Hx: Hyperlipidemia Hx: Bladder Disorders (bladder cancer 2 years ago, hx microscopic hematuria, renal calculi) Cancer HX: Yes Coding Level of Care Code Est Patient Level 1 Diagnoses Current use of anticoagulant therapy Z79.01 Results AMB INR Fingerstick AMB INR Fingerstick 2.6 Last Edit by Bridgett Yoon RN on 03/01/24 08:31 interface delay Assessment & Plan Assessment & Plan (1) Current use of anticoagulant therapy: 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
[2024-03-01 08:31] LABS: Prothrombin Time Whole Bld POC 31.3 sec (11.1-13.5); ~PT, ~INR - Anti Coag Clinic 2.6 (0.9-1.1)
== END 2024-03-01 08:35 | disposition home or self-care (01) ==
LOC: HO.ACS 08:10
PROVIDERS: PCP Nurse Practitioner Family; Visit Provider Internal Medicine
DX: Z79.01 Long term (current) use of anticoagulants (principal)

== ENCOUNTER → 2024-03-01 08:10 | Outpatient (BNVA) | payer MEDICARE, SELFPAY | PROVIDERS: PCP Nurse Practitioner Family; Visit Provider Internal Medicine | DX: I48.91 Unspecified atrial fibrillation (principal); Z79.01 Long term (current) use of anticoagulants; Z51.81 Encounter for therapeutic drug level monitoring | CPT/HCPCS: 85610; 99211 ==

== ENCOUNTER 2024-03-10 12:14 | Outpatient (REF) | payer MEDICARE, SELFPAY ==
--- NOTE | ~2024-03-10 | US_ITS ---
EXAMINATION: US THYROID CLINICAL INFORMATION: Decreased TSH. Abnormal blood chemistry. COMPARISON: None available. TECHNIQUE: Linear transducer grayscale and color Doppler examination with attention to the region of the thyroid. FINDINGS: SIZE: Measurements of the thyroid lobes and nodules are given in sagittal, anteroposterior and transverse dimensions respectively. Right Thyroid Lobe: 3.6 x 0.94 x 1.7 cm, volume 3.0 mL. Previously measured 3.1 x 1.0 x 1.3 cm, volume 2.12 mL Parenchyma: The gland echotexture is homogeneous. Thyroid vascularity is hypervascular. Left Thyroid Lobe: 4.3 x 1 0.0, 1.4 cm, volume 3.2 mL. Parenchyma: The gland echotexture is homogeneous. Thyroid vascularity is hypervascular. Isthmus: 0.15 cm in maximum AP dimension. Estimated total number of nodules greater than or equal to 1 cm: None. 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 Location: Right mid pole. Size: 0.45 x 0.37 x 0.32 cm, volume 0.03 mL. Nodule characteristics: Composition: Solid (2). Echogenicity: Hyperechoic (1). Shape: Wider Margins: Smooth (0). Echogenic Foci: None (0). ACR TI-RADS total points: 7 ACR TI-RADS category: 5 No additional nodule seen. NODES: No lymphadenopathy is seen in the tissue surrounding the thyroid gland. US/US thyroid IMPRESSION: Normal-sized thyroid gland with hypervascularity in both lobes. Subcentimeter nodular right mid pole thyroid nodule. Recommend follow-up in a year ACR TI-RADS RECOMMENDATION REFERENCE: Ultrasound-guided fine-needle aspiration, followup ultrasound, no further follow up. * TR1 (0 point) and TR2 (2 points): No FNA or follow up. * TR3 (3 points): FNA if more than or equal to 2.5 cm in maximum dimension, followup ultrasound in 1, 3 and 5 years if 1.5 to 2.4 cm in maximum dimension. * TR4 (4-6 points): FNA if more than or equal to 1.5 cm in maximum dimension, followup ultrasound in 1, 2, 3 and 5 years if 1 to 1.4 cm in maximum dimension. * TR5 (more than or equal to 7 points): FNA if more than or equal to 1 cm in maximum dimension, followup ultrasound every year for 5 years if 0.5 to 0.9 cm in maximum dimension. * TR3, TR4 or TR5 nodules that are below the size threshold for followup receive no follow up. Electronically signed by: Yoel Spivey MD 03/21/2024 07:38 AM G[facility]
== END 2024-03-10 12:15 | disposition home or self-care (01) ==
LOC: HO.US 12:14
PROVIDERS: PCP Nurse Practitioner Family; Visit Provider Nurse Practitioner Family
DX: R79.89 Other specified abnormal findings of blood chemistry (principal)
CPT/HCPCS: 76536

== ENCOUNTER → 2024-03-10 12:21 | Outpatient (BNV) | payer MEDICARE, SELFPAY | PROVIDERS: PCP Nurse Practitioner Family; Visit Provider Radiology Diagnostic Radiology | DX: R79.89 Other specified abnormal findings of blood chemistry (principal) | CPT/HCPCS: 76536 ==

== ENCOUNTER 2024-03-14 07:05 | Outpatient (REF) | payer MEDICARE, SELFPAY ==
[2024-03-14 11:19] LABS: TSH reflex Free T4 4.05 uIU/mL (0.32-4.0)
[2024-03-14 12:19] LABS: Free T4 (Free Thyroxine) 1.11 ng/dL (0.71-1.85)
[2024-03-15 09:29] LABS: Triiodothyronine T3 Free 3.4 pg/mL (2.3-4.2)
[2024-03-15 17:54] LABS: Thyroid Peroxidase Antibodies 1 IU/mL (<9)
[2024-03-17 17:57] LABS: Thyrotropin Receptor Antibody <1.00 IU/L (<=2.00)
== END 2024-03-14 07:06 | disposition home or self-care (01) ==
LOC: HO.HMGCLDS 07:05
PROVIDERS: PCP Nurse Practitioner Family; Visit Provider Nurse Practitioner Family
DX: R79.89 Other specified abnormal findings of blood chemistry (principal)
CPT/HCPCS: 36415; 83520; 84439; 84443; 84481; 86376

== ENCOUNTER 2024-03-22 08:12 | Outpatient (AMB) | payer MEDICARE, SELFPAY ==
--- NOTE | 2024-03-22 08:59 | MHC.OFFVISCO ---
Intake Intake Visit Reasons: Anticoagulation Allergies No Known Allergies [No Known Allergies*] Allergy (Verified 03/22/24 08:39) Medication List - Last Reconciled 03/22/24 by Bridgett Yoon RN amlodipine 5 mg PO DAILY atorvastatin 20 mg PO DAILY 90 days cholecalciferol (vitamin D3) 50 mcg PO DAILY metoprolol succinate ER 25 mg PO DAILY multivitamin (One-A-Day Essential tablet) 1 tab PO DAILY pyridoxine (vitamin B6) 100 mg PO DAILY 90 days warfarin See Protocol 1-2 tabs per INR results orally daily; Nursing Note INR: 3.4?out of therapeutic range of 2-3 Pt states he had cranberry sauce. Medications and supplements reviewed Patient status: well Medications or supplements: no changes Diet: usual diet for pt Denies any signs and symptoms of bleeding or clotting or unusual bruising Bleeding, bruising, clotting discussed Nutritional guidance given: pt is not a big green eater. When asked what greens he would have to lower the INR, he said salad with iceberg lettuce and green beans. Food list reviewed and education given. Pt was not going to have a significant green and for this reason dose was decreased. Dose: today's dose decreased to 2mg (4mg) then usual dose of 4mg X 5 days and 3mg X 2 days F/U INR Date : 2 weeks?? Patient verbalizing understanding of instructions given. Anti-Coag Initial Assessment Social Hx Patient Tobacco Use Status: Current everyday Tobacco user Tobacco use type: Cigarette Smoking packs per day: 1 alcohol intake: former (quit etoh at age 28) Cardiovascular Hx: HTN and Arrhythmias (afib) Lung Disease HX: Other (hx collapsed lung approx 30 years ago) Blood Disorder Hx: Hyperlipidemia Hx: Bladder Disorders (bladder cancer 2 years ago, hx microscopic hematuria, renal calculi) Cancer HX: Yes Coding Level of Care Code Est Patient Level 1 Diagnoses Current use of anticoagulant therapy Z79.01 Results AMB INR Fingerstick AMB INR Fingerstick 3.4 Last Edit by Bridgett Yoon RN on 03/22/24 08:57 interface delay Assessment & Plan Assessment & Plan (1) Current use of anticoagulant therapy: Code(s): Z79.01 - long-term (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
[2024-03-22 09:04] LABS: Prothrombin Time Whole Bld POC 40.3 sec (11.1-13.5); ~PT, ~INR - Anti Coag Clinic 3.4 (0.9-1.1)
== END 2024-03-22 09:03 | disposition home or self-care (01) ==
LOC: HO.ACS 08:12
PROVIDERS: PCP Nurse Practitioner Family; Visit Provider Internal Medicine
DX: Z79.01 Long term (current) use of anticoagulants (principal)

== ENCOUNTER → 2024-03-22 08:12 | Outpatient (BNVA) | payer MEDICARE, SELFPAY | PROVIDERS: PCP Nurse Practitioner Family; Visit Provider Internal Medicine | DX: I48.91 Unspecified atrial fibrillation (principal); Z79.01 Long term (current) use of anticoagulants; Z51.81 Encounter for therapeutic drug level monitoring | CPT/HCPCS: 85610; 99211 ==

== ENCOUNTER → 2024-03-23 08:45 | Outpatient (REF) | payer MEDICARE, SELFPAY ==
--- NOTE | 2024-03-23 08:48 | CA_ITS ---
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 Normal LV ejection fraction of 55-60% 2. Mild biatrial enlargement 3. Normal cardiac valvular Dopplers 4. Normal RV systolic pressure 5. No gross pericardial effusion Findings Left Ventricle Normal left ventricular size, thickness, and systolic function. The visually estimated ejection fraction is between 55-60%. Diastolic function is indeterminate on the basis of available data. Right Ventricle Normal right ventricular cavity size and systolic function. Atria The left atrium is mildly dilated. There is no evidence of interatrial shunt. The right atrium is mildly dilated. Aortic Valve Normal aortic valve structure and function. There is no aortic valve stenosis. There is no aortic valve regurgitation. Mitral Valve Normal mitral valve structure and function. There is trace mitral valve regurgitation. There is no mitral valve stenosis. Pulmonic Valve The pulmonic valve is likely normal. There is trace pulmonic valve regurgitation. Tricuspid Valve Normal tricuspid valve structure. There is trace tricuspid valve regurgitation. The right ventricular systolic pressure is normal. The right ventricular systolic pressure is 23 mmHg. Normal right atrial pressure. There is no evidence of pulmonary hypertension. Great Vessels All visible segments of the aorta are normal in size. The pulmonary artery was not well visualized. There is no dilatation of the ascending aorta measuring 3.10 cm. Venous The inferior vena cava is normal in size. Pericardium/Pleural There is no evidence of pericardial effusion. Prior Study Comparison No significant change compared to prior study dated: 04/23/2024. Measurements 2D Linear Measurements IVSd: 0.86 0.6-0.9/0.6-1.0 cm LVIDd: 4.26 3.9-5.3/4.2-5.9 cm LVIDd Index: 2.30 2.4-3.2/2.2-3.1 cm/m2 LVIDs: 2.78 2.0-3.6 cm LVPWd: 0.85 0.7-1.1 cm Ao Root: 3.40 2.1-3.5 cm LA Diam: 3.50 2.7-3.8/3.0-4.0 cm LAIDs Index: 1.89 1.5-2.3 cm/m2 LV Mass: 140.77 67-162/88-224 g LV Mass Index: 76.09 43-95/49-115 g/m2 LVOT Diam: 1.90 3.0+(-)1.3 cm 2D Systolic Function EF 4C: 56.70 >55% EF 2C: 53.60 >55% EF BiP: 55.00 >55% Mitral Valve MV Pk E: 0.77 MV Decel Time: 232.00 E'Lateral: 12.40 E'Medial: 10.80 E/E' Med: 7.10 E/E' Lat: 6.20 PHT: 68.00 MVA PHT: 3.24 Decel [place]: 3.32 Aortic Valve AoV Pk Irwin: 0.90 AoV Mn Irwin: 0.59 AoV VTI: 0.22 AoV Pk Grad: 3.00 Aov Mn Grad: 2.00 SABRA Cont.VTI: 1.74 LVOT LVOT Pk Irwin: 0.54 LVOT Mn Irwin: 0.33 LVOT VTI: 0.13 LVOT Pk Grad: 1.00 LVOT Mn Grad: 1.00 LVOT Diam: 1.90 LVOT Area: 2.84 Diastolic Function MV Pk E: 0.77 E'Medial: 10.80 E/E' Med: 7.10 E' Laterial: 12.40 E/E' Lat: 6.20 Right Ventricle TAPSE (mm): 23.00 TVS' Irwin: 11.00 Tricuspid Valve TR Pk Irwin: 2.23 TR Pk Grad: 20.00 RA Press: 3.00 RVSP: 23.00 Great Vessels Aorta Ao Root-2D: 3.40 2.0-3.7 cm Ao Asc: 3.10 2.1-3.4 cm Pulmonary Valve PV Pk Irwin: 0.86 Peak PV Grad: 3.00 Updated in Other Vendor System with Status of Final Kamari Abraham MD electronically signed on 03/24/2024 1:17:00 PM with status of Final
== END ==
LOC: HO.CARD 08:45
PROVIDERS: PCP Nurse Practitioner Family; Visit Provider Nurse Practitioner
DX: I48.91 Unspecified atrial fibrillation (principal)
CPT/HCPCS: 93306

== ENCOUNTER → 2024-03-23 08:48 | Outpatient (BNV) | payer MEDICARE, SELFPAY | PROVIDERS: PCP Nurse Practitioner Family; Visit Provider Internal Medicine Cardiovascular Disease | DX: I51.7 Cardiomegaly (principal) | CPT/HCPCS: 93306 ==

== ENCOUNTER 2024-04-05 08:13 | Outpatient (AMB) | payer MEDICARE, SELFPAY ==
[2024-04-05 08:21] LABS: Prothrombin Time Whole Bld POC 30.5 sec (11.1-13.5); ~PT, ~INR - Anti Coag Clinic 2.5 (0.9-1.1)
--- NOTE | 2024-04-05 08:24 | MHC.OFFVISCO ---
Intake Intake Visit Reasons: Anticoagulation Allergies No Known Allergies [No Known Allergies*] Allergy (Verified 04/05/24 08:15) Medication List - Last Reconciled 04/05/24 by Bridgett Yoon, RN amlodipine 5 mg PO DAILY atorvastatin 20 mg PO DAILY 90 days cholecalciferol (vitamin D3) 50 mcg PO DAILY metoprolol succinate ER 25 mg PO DAILY multivitamin (One-A-Day Essential tablet) 1 tab PO DAILY pyridoxine (vitamin B6) 100 mg PO DAILY 90 days warfarin See Protocol 1-2 tabs per INR results orally daily; Nursing Note INR: 2.5 in therapeutic range of 2-3 Medications and supplements reviewed No changes in health, diet, medications, or supplements, Denies any signs and symptoms of bleeding or bruising or clotting. Bleeding, bruising, clotting discussed Nutritional guidance given Dose: keep same dose of 4mg X 5 days and 3mg X 2 days (Mon & Th) F/U INR: 3 weeks Patient verbalizes understanding of instructions given Anti-Coag Initial Assessment Social Hx Patient Tobacco Use Status: Current everyday Tobacco user Tobacco use type: Cigarette Smoking packs per day: 1 alcohol intake: former (quit etoh at age 28) Cardiovascular Hx: HTN and Arrhythmias (afib) Lung Disease HX: Other (hx collapsed lung approx 30 years ago) Blood Disorder Hx: Hyperlipidemia Hx: Bladder Disorders (bladder cancer 2 years ago, hx microscopic hematuria, renal calculi) Cancer HX: Yes Coding Level of Care Code Est Patient Level 1 Diagnoses Current use of anticoagulant therapy Z79.01 Assessment & Plan Assessment & Plan (1) Current use of anticoagulant therapy: 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
== END 2024-04-05 08:26 | disposition home or self-care (01) ==
LOC: HO.ACS 08:13
PROVIDERS: PCP Nurse Practitioner Family; Visit Provider Internal Medicine
DX: Z79.01 Long term (current) use of anticoagulants (principal)

== ENCOUNTER → 2024-04-05 08:13 | Outpatient (BNVA) | payer MEDICARE, SELFPAY | PROVIDERS: PCP Nurse Practitioner Family; Visit Provider Internal Medicine | DX: I48.91 Unspecified atrial fibrillation (principal); Z79.01 Long term (current) use of anticoagulants; Z51.81 Encounter for therapeutic drug level monitoring | CPT/HCPCS: 85610; 99211 ==

== ENCOUNTER 2024-04-20 08:11 | Outpatient (AMB) | payer MEDICARE, SELFPAY ==
--- NOTE | 2024-04-20 08:31 | A.OFFVIS_ITS ---
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 Originally, he was seen regarding question of atrial fibrillation but workup showed sinus rhythm with frequent supraventricular ectopy. However, during follow-up, detected to have atrial fibrillation and now treated for the same. He is on a small dose of beta- hanny and on Coumadin for anticoagulation. He states he feels fine. He has got no cardiac complaints. Chronic smoker and still smokes. [facility] Medical History (Updated 04/20/24 @ 09:07 by Nakul Crook MD) HTN (hypertension) Bladder cancer Nicotine dependence, cigarettes, uncomplicated Atrial fibrillation PAC (premature atrial contraction) Renal calculi Family history of prostate cancer Immunocompromised CLL (chronic lymphocytic leukemia) Gynecomastia Dyslipidemia Thyroglossal duct cyst Surgical History History of bladder surgery Hx of lithotripsy H/O colonoscopy Family History Father History of prostate cancer Social History Housing: House Alcohol intake: former (quit etoh at age 28) Patient Tobacco Use Status: Current everyday Tobacco user Tobacco use type: Cigarette Cigarette Packs Per Day: 1 Cigarettes Per Day: 20.0 e-Cigarette/Vaping Use: Currently Using (sometimes ) Second Hand Smoke Exposure: No service: No Current occupational status: retired 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, 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 Current occupational exposures/hazards: No Cognitive needs: No Hearing needs: No Vision needs: No Review of Systems Const Denies chills, Denies fatigue, Denies fever(s), Denies weight gain and Denies weight loss ENT Denies dizziness Card Denies chest pain, Denies leg edema, Denies lightheadedness, Denies palpitations, Denies dyspnea on exertion, Denies orthopnea and Denies other Resp Denies cough and Denies dyspnea on exertion GI Denies hematochezia and Denies change in stool character Musc Denies abnormal gait, Denies muscle weakness, Denies numbness, Denies radiating pain into limb and Denies tingling Neuro Denies abnormal gait, Denies dizziness, Denies numbness and Denies tingling Endo Denies fatigue and Denies palpitations Physical Exam Vital Signs: Last Vital Signs Pulse 84 04/20/24 08:32 BP 102/70 04/20/24 08:32 BMI result Body Mass Index 18.2 Const General: comfortable and no acute distress Orientation/consciousness: patient oriented x3 HEENT Other: Unremarkable Head: Yes normal to inspection Neck Neck: Yes normal visual inspection Chest Chest palpation & inspection: normal inspection of the chest Resp Auscultation: clear to auscultation bilaterally Cardio Palpation: normal PMI Heart sounds: S1 normal heart sound present, S2 normal heart sound present, no gallops, no murmurs and no rubs GI Palpation (GI): Soft to palpation Back/Spine/Pelvis Other: unremarkable Skin General skin exam: no rashes or lesions noted Neuro General: patient oriented x3 Extrem General: Yes normal to inspection Psych Mental Status: mental status grossly normal Office Procedures EKG Details: EKG with atrial fibrillation at a rate of 64/Min. [id number]-[id number], Complete Assessment & Plan Assessment & Plan (1) Persistent atrial fibrillation: Code(s): I48.19 - Other persistent atrial fibrillation Category: Medical Plan: Cardiac studies reviewed. Echocardiogram with LVEF of 55-60%. Mild biatrial enlargement but otherwise unremarkable. Myocardial perfusion imaging study from 2021 shows normal perfusion. Holter from last year shows underlying atrial fibrillation with an average rate of 73/Min. Clinically, asymptomatic. Continue beta-blockers and Coumadin. (2) HTN (hypertension): Code(s): I10 - Essential (primary) hypertension Category: Medical Plan: On amlodipine. Controlled. (3) Smoking: Code(s): F17.200 - Nicotine dependence, unspecified, uncomplicated Category: Social Hx Plan: Long-term smoker, unclear if he will stop but discussed about it today. Coding Level of Care Code Est Pt Level 4 (74312) Diagnoses Persistent atrial fibrillation I48.19 HTN (hypertension) I10 Smoking F17.200 CPT Codes EKG - CPT: 88213-[id number], Complete ([id number])
[2024-04-20 08:32] VITALS: BP 102/70; PULSE 84; BMI 18.2
== END 2024-04-20 09:20 | disposition home or self-care (01) ==
PROVIDERS: PCP Nurse Practitioner Family; Visit Provider Internal Medicine
DX: I48.19 Other persistent atrial fibrillation (principal); I10 Essential (primary) hypertension; F17.200 Nicotine dependence, unspecified, uncomplicated
CPT/HCPCS: 93010; 99214

== ENCOUNTER → 2024-04-20 08:11 | Outpatient (BNVA) | payer MEDICARE, SELFPAY | PROVIDERS: PCP Nurse Practitioner Family; Visit Provider Internal Medicine | DX: I48.19 Other persistent atrial fibrillation (principal); I10 Essential (primary) hypertension; F17.210 Nicotine dependence, cigarettes, uncomplicated; R94.31 Abnormal electrocardiogram [ECG] [EKG] | CPT/HCPCS: 93005; 99212 ==

== ENCOUNTER 2024-04-26 08:11 | Outpatient (AMB) | payer MEDICARE, SELFPAY ==
--- NOTE | 2024-04-26 08:24 | MHC.OFFVISCO ---
Intake Intake Visit Reasons: Anticoagulation Allergies No Known Allergies [No Known Allergies*] Allergy (Verified 04/26/24 08:20) Medication List - Last Reconciled 04/26/24 by Bridgett Yoon, EMILI amlodipine 5 mg PO DAILY atorvastatin 20 mg PO DAILY 90 days cholecalciferol (vitamin D3) 50 mcg PO DAILY metoprolol succinate ER 25 mg PO DAILY multivitamin (One-A-Day Essential tablet) 1 tab PO DAILY pyridoxine (vitamin B6) 100 mg PO DAILY 90 days warfarin See Protocol 1-2 tabs per INR results orally daily; Nursing Note INR: 2.8 in therapeutic range of 2-3 Medications and supplements reviewed No changes in health, diet, medications, or supplements, Denies any signs and symptoms of bleeding or bruising or clotting. Bleeding, bruising, clotting discussed Nutritional guidance given Dose: 4mg X 5 days and 3mg X 2 days F/U INR: 3 weeks Patient verbalizes understanding of instructions given Anti-Coag Initial Assessment Social Hx Patient Tobacco Use Status: Current everyday Tobacco user Tobacco use type: Cigarette Smoking packs per day: 1 alcohol intake: former (quit etoh at age 28) Cardiovascular Hx: HTN and Arrhythmias (afib) Lung Disease HX: Other (hx collapsed lung approx 30 years ago) Blood Disorder Hx: Hyperlipidemia Hx: Bladder Disorders (bladder cancer 2 years ago, hx microscopic hematuria, renal calculi) Cancer HX: Yes Coding Level of Care Code Est Patient Level 1 Diagnoses Current use of anticoagulant therapy Z79.01 Assessment & Plan Assessment & Plan (1) Current use of anticoagulant therapy: 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
[2024-04-26 08:25] LABS: Prothrombin Time Whole Bld POC 33.3 sec (11.1-13.5); ~PT, ~INR - Anti Coag Clinic 2.8 (0.9-1.1)
== END 2024-04-26 08:28 | disposition home or self-care (01) ==
LOC: HO.ACS 08:11
PROVIDERS: PCP Nurse Practitioner Family; Visit Provider Internal Medicine
DX: Z79.01 Long term (current) use of anticoagulants (principal)

== ENCOUNTER → 2024-04-26 08:11 | Outpatient (BNVA) | payer MEDICARE, SELFPAY | PROVIDERS: PCP Nurse Practitioner Family; Visit Provider Internal Medicine | DX: I48.91 Unspecified atrial fibrillation (principal); Z79.01 Long term (current) use of anticoagulants; Z51.81 Encounter for therapeutic drug level monitoring | CPT/HCPCS: 85610; 99211 ==

== ENCOUNTER 2024-05-17 08:05 | Outpatient (AMB) | payer MEDICARE, SELFPAY ==
[2024-05-17 08:27] LABS: Prothrombin Time Whole Bld POC 22.5 sec (11.1-13.5); ~PT, ~INR - Anti Coag Clinic 1.9 (0.9-1.1)
--- NOTE | 2024-05-17 08:32 | MHC.OFFVISCO ---
Intake Intake Visit Reasons: Anticoagulation Allergies No Known Allergies [No Known Allergies*] Allergy (Verified 05/17/24 08:22) Medication List - Last Reconciled 05/17/24 by Bridgett Baker RN amlodipine 5 mg PO DAILY atorvastatin 20 mg PO DAILY 90 days cholecalciferol (vitamin D3) 50 mcg PO DAILY metoprolol succinate ER 25 mg PO DAILY multivitamin (One-A-Day Essential tablet) 1 tab PO DAILY pyridoxine (vitamin B6) 100 mg PO DAILY 90 days warfarin See Protocol 1-2 tabs per INR results orally daily; Nursing Note Arrival: Patient arrives to [facility], feeling well.sts he has a CT of his lungs today at 1100, [facility] Status: Denies changes in health, diet, medications or supplements. Denies symptoms of bleeding, bruising or clotting. INR: 1.9 just below therapeutic range Therapeutic Range: 2.0-3.0 Dose: increase dose today to 5mg then resume usual dosing tomorrow 3mg x 2 days and 4mg x 5 days Nutritional Guidance: no greens today , ok for reds today then balance. Review food list weekly, especially during the holidays, seasonal changes and celebrations. Continue to eat a consistent and balanced diet to keep INR in therapeutic range. Follow-up Appointment: 3 weeks Patient verbalizes understanding of instructions given regarding dosing, diet and next follow-up appointment with read back. Anti-Coag Initial Assessment Social Hx Patient Tobacco Use Status: Current everyday Tobacco user Tobacco use type: Cigarette Smoking packs per day: 1 alcohol intake: former (quit etoh at age 28) Cardiovascular Hx: HTN and Arrhythmias (afib) Lung Disease HX: Other (hx collapsed lung approx 30 years ago) Blood Disorder Hx: Hyperlipidemia Hx: Bladder Disorders (bladder cancer 2 years ago, hx microscopic hematuria, renal calculi) Cancer HX: Yes Coding Level of Care Code Est Patient Level 1 Diagnoses Current use of anticoagulant therapy Z79.01 Time Spent (min) 15 Assessment & Plan Assessment & Plan (1) Current use of anticoagulant therapy: Code(s): Z79.01 - custodial (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
== END 2024-05-17 09:29 | disposition home or self-care (01) ==
LOC: HO.ACS 08:05
PROVIDERS: PCP Nurse Practitioner Family; Visit Provider Internal Medicine
DX: Z79.01 Long term (current) use of anticoagulants (principal)

== ENCOUNTER 2024-05-17 08:35 | Outpatient (REF) | payer MEDICARE, SELFPAY ==
--- NOTE | ~2024-05-17 | CT_ITS ---
EXAMINATION: CT LOW-DOSE SCREENING CHEST WITHOUT CONTRAST CLINICAL INFORMATION: 73-year-old male, smoker, 42 pack years. Lung cancer screening. COMPARISON: 05/11/2023, 03/28/2022. TECHNIQUE: Multidetector volumetric CT imaging of the chest is performed on a Siemens SOMATOM Definition scanner without contrast using low dose technique. Additional 2D coronal and sagittal reformatted images and axial 3D maximum intensity projection (MIP) images are generated on the CT workstation. This CT examination was performed using dose optimization techniques as appropriate, variously including the following: *Automated exposure control *Adjustment of mA and/or kV according to patient size (this includes techniques or standardized protocols for targeted exams where dose is matched to indication/reason for exam; i.e. extremities or head) *Use of iterative reconstruction technique FINDINGS: PULMONARY NODULES: -There is a new average diameter mixed solid and groundglass nodule in the anterior right upper lobe (series 8, image 56). This is most likely infectious or inflammatory. - 4 mm nodule in the lateral right upper lobe (series 5, image 64), unchanged. - 3 mm nodule in the lateral right middle lobe (series 5, image 107), unchanged. -3 mm nodule lateral right lower lobe (series 5, image 118), unchanged. -There are 2 immediately adjacent 4 mm nodules in the posterior right lower lobe, (series 5, images 128 and 130), unchanged -There are several 2 to 3 mm scattered nodules in the left lung, some calcified, which are also unchanged. -No additional new or enlarging nodules. LUNGS: -Moderate to severe paraseptal emphysema with apical predominance, unchanged. -Significant stable biapical scarring and bulla. -Worsening area of mucoid impaction in the inferior anterior right upper lobe, with small tree-in-bud opacities. Finding is consistent with infectious etiology. - Minimal small airway thickening without significant bronchiectasis throughout both lungs. -Central airways appear patent. -No pleural effusion or pneumothorax. MEDIASTINUM: -Normal thyroid. -No abnormal lymphadenopathy or mass. -Aorta normal in caliber and course with mild to moderate atheromatous calcification. -Main pulmonary artery normal. -Heart size normal. No pericardial effusion. -No esophageal abnormality. CORONARY ARTERY CALCIFICATION: Mild. CHEST WALL/AXILLA: Unremarkable. UPPER ABDOMEN: Included portions of the solid organs in the upper abdomen unremarkable on noncontrast imaging. OSSEOUS STRUCTURES: No suspicious lytic or blastic bone lesion. Mild degenerative spinal changes. CT/CT lung screening IMPRESSION: 1. There is a new average diameter 6 mm mixed solid and groundglass nodule in the anterior right upper lobe, most likely infectious or inflammatory. Short interval follow-up recommended. 2. There are otherwise stable bilateral small pulmonary nodules without change. 3. Moderate to severe paraseptal emphysema with upper lobe scarring and bulla. 4. Mild thickening of the small airways. Focus of tree-in-bud opacities inferior anterior right upper lobe, consistent with infectious airways disease. ASSESSMENT: 1. Lung-RADS Category 4A: Suspicious findings. 2. Lung-RADS Category S: None. RECOMMENDATION: A 3-month follow up low-dose lung CT scan is recommended. An order for CT LUNG CANCER SCREENING SHORT INTERVAL FOLLOWUP ([id number]) can be placed. Electronically signed by: Slade Hill MD 05/17/2024 02:14 PM EDT
== END 2024-05-17 08:36 | disposition home or self-care (01) ==
LOC: HO.CT 08:35
PROVIDERS: PCP Nurse Practitioner Family; Visit Provider Physician Assistant Medical
DX: Z12.2 Encounter for screening for malignant neoplasm of respiratory organs (principal); F17.210 Nicotine dependence, cigarettes, uncomplicated; I48.19 Other persistent atrial fibrillation; Z51.81 Encounter for therapeutic drug level monitoring; Z79.01 Long term (current) use of anticoagulants
CPT/HCPCS: 71271; 85610; 99211

== ENCOUNTER → 2024-05-17 08:38 | Outpatient (BNV) | payer MEDICARE, SELFPAY | PROVIDERS: PCP Nurse Practitioner Family; Visit Provider Radiology Diagnostic Radiology | DX: F17.210 Nicotine dependence, cigarettes, uncomplicated (principal) | CPT/HCPCS: 71271 ==

== ENCOUNTER 2024-05-23 08:47 | Outpatient (AMB) | payer MEDICARE, SELFPAY ==
[2024-05-23 08:50] VITALS: BP 118/76; PULSE 76; RESP 17; TEMP 36.5; O2SAT 95; BMI 18.0
--- NOTE | 2024-05-23 08:50 | MHC.PC.OV ---
Vital Signs 05/23/24 08:50 Height 6 ft 2 in Weight 140 lb 8 oz BMI 18.0 BP 118/76 Blood Pressure Location Rt brachial Position Sitting Respiration 17 Pulse 76 Pulse Source Pulse Oximeter Temp 97.7 F Temp Source Oral Pulse Oximetry (%) 95 Oxygen Delivery Method Room Air Intake Visit Reasons: 6m follow up Intake Note: Pt is here today for 6 month follow up. Allergies No Known Allergies [No Known Allergies*] Allergy (Verified 05/23/24 09:38) Medication List - Last Reconciled 05/23/24 by Georgi Kim [facility] amlodipine 5 mg PO DAILY atorvastatin 20 mg PO DAILY 90 days cholecalciferol (vitamin D3) 50 mcg PO DAILY metoprolol succinate ER 25 mg PO DAILY multivitamin (One-A-Day Essential tablet) 1 tab PO DAILY pyridoxine (vitamin B6) 100 mg PO DAILY 90 days warfarin See Protocol 1-2 tabs per INR results orally daily; Tobacco use date assessed: 05/23/24 Fall risk assessment: No Falls in past year Last assessed Fall Risk: 05/23/24 Dental Screening Dental Screen Date: 05/23/24 Did you have a dental visit in the last 12 months?: No Did you have a dental problem in the last 6 months where you did not have access to dental care?: No Was dental information given to patient?: Patient declined HPI 6m follow up HPI Details Chief Complaint The patient presents for follow-up regarding hypertension management. History of Present Illness The patient is a 73-year-old male presenting for follow-up regarding hypertension. He does not take regular blood pressure readings at home but denies associated symptoms such as chest pain, shortness of breath, dizziness, or blurred vision. The patient expresses overall wellness. Regular check-ups are in place with cardiology, together with routine visits to oncology and urology. BP remains stable in the office Social History Health Maintenance Review of Systems -general: denies any fevers or chills - Cardiovascular: Denies chest pain. - Respiratory: Denies shortness of breath. - Neurological: Denies dizziness and blurred vision. - General: Reports feeling generally well. Physical Exam General: Cooperative, healthy appearing, comfortable, no acute distress and well developed, skinny stature Orientation: Patient oriented x3 Limitations: No limitations Head: Normal to inspection Ears: Hearing grossly normal bilaterally Nose: Normal external nose present Face and sinus: Normal facial exam Eyes: Appearance normal, both eyes and all related structures Neck: Normal visual inspection and Yes full ROM Respiratory: Diminished throughout but able to speak in complete sentences, moving air Cardiovascular: Regular rate and rhythm. Diminished S1 and S2 GI: Normal to inspection. Soft to palpation and nontender Skin: No rashes or lesions noted Neuro: Patient oriented x3 Extremities: Normal to inspection, no edema noted Results Plan The management plan for this patient involves ongoing focus on essential hypertension, supported by regular cardiology consultations. Emphasis on the importance of monitoring blood pressure at home is advised, even though current practices do not include it. The integration of his health management with additional oncology and urology oversight continues, with further elaboration on these aspects foregone in this visit. Discussion Notes I reiterated to the patient the importance of regular monitoring of his blood pressure at home in tandem with his already established routine cardiology appointments to effectively manage his hypertension. We discussed keeping continuity of care through regular visits to oncology and urology, although specific issues with these specialties were not discussed at length today. No additional tests or procedures were deemed necessary at this point based on the patient's current status. Patient Instructions - Continue with regular follow-up appointments with cardiology. - Start monitoring blood pressure at home if possible, noting any significant changes. - Remain consistent with ongoing oncology and urology appointments as scheduled. [facility] Medical History (Updated 05/23/24 @ 09:30 by Georgi Kim [facility]) HTN (hypertension) Bladder cancer Nicotine dependence, cigarettes, uncomplicated Atrial fibrillation PAC (premature atrial contraction) Renal calculi Family history of prostate cancer Immunocompromised CLL (chronic lymphocytic leukemia) Gynecomastia Dyslipidemia Thyroglossal duct cyst Surgical History History of bladder surgery Hx of lithotripsy H/O colonoscopy Family History Father History of prostate cancer Social History Housing: House Alcohol intake: former (quit etoh at age 28) Patient Tobacco Use Status: Current everyday Tobacco user Tobacco use type: Cigarette Cigarette Packs Per Day: 1 Cigarettes Per Day: 20.0 e-Cigarette/Vaping Use: Currently Using (sometimes ) Second Hand Smoke Exposure: No service: No Current occupational status: retired 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 1. Little interest or pleasure in doing things: not at all 2. Feeling down, depressed, or hopeless: not at all 3. Trouble falling or staying asleep, or sleeping too much: not at all 4. Feeling tired or having little energy: not at all 5. Poor appetite or overeating: not at all 6. Feeling bad about yourself - or that you are a failure or have let yourself or your family down: not at all 7. Trouble concentrating on things, such as reading the newspaper or watching television: not at all 8. Moving or speaking so slowly that other people could have noticed. Or the opposite - being so fidgety or restless that you have been moving around a lot more than usual: not at all 9. Thoughts that you would be better off or of hurting yourself in some way: not at all Total score: 0 Depression Screening Interpretation: Negative Depression Screening Done: Yes 32709 - PHQ-9 Billing: Yes Source: Developed by Drs. Darren Pepper, Natalie Bhatia, Tk Neumann and colleagues, with an educational ralph from [employer]. Thrive Questionnaire Date Thrive assessed: 05/23/24 I am a: Patient What is your living situation today?: I have a steady place to live Within the past 12 months, did the food you bought not last and you didn't have the money to get more?: Never true Within the past 12 months, did you worry whether your food would run out before you got money to buy more?: Never true Do you have trouble paying for medicines?: No Do you have trouble getting transportation to medical appointments?: No Do you have trouble paying your heating and electricity bill?: No Do you have trouble taking care of your child, family member or friend?: No Do you have trouble with day-to-day activities such as bathing, preparing meals, shopping, managing finances, etc.?: No Are you currently unemployed and looking for a job?: No Are you interested in more education?: No Please select the resources that you would like help with: None Currently or been in a relationship where the following occur: No concerns reported THRIVE Score: 0 AUDIT C Alcohol Use Questionnaire (AUDIT-C) 1. How often do you have a drink containing alcohol?: Never 3. How often do you have six or more drinks on one occasion?: Never Total Score: 0 Score Reviewed/Action Taken: Yes MOLLY-7 AMB Questionnaire MOLLY-7 Date MOLLY - 7 assessed: 05/23/24 Feeling nervous, anxious, or on edge: 0 = Not at all Not being able to stop or control worryin = Not at all Worrying too much about different things: 0 = Not at all Trouble relaxin = Not at all Being so restless that it is hard to sit still: 0 = Not at all Becoming easily annoyed or irritable: 0 = Not at all Feeling afraid as if something awful might happen: 0 = Not at all Total MOLLY-7 score (0-4 normal; 5-9 mild; 10-14 moderate; 15-21 severe): 0 Source: Developed by Drs. Darren Pepper, Natalie Bhatia, Tk Neumann and colleagues, with an educational ralph from [employer]. MOLLY-7 Assessment Billing MOLLY-7 Assessment Tool: MOLLY-7 Assessment 55341 Physical exam (Primary Care) Vital Signs: Last Vital Signs Temp 97.7 F 05/23/24 08:50 Pulse 76 05/23/24 08:50 Resp 17 05/23/24 08:50 BP 118/76 05/23/24 08:50 Pulse Ox 95 05/23/24 08:50 Oxygen Delivery Method Room Air 05/23/24 08:50 BMI result Body Mass Index 18.0 Tobacco/Smoking Status: Tobacco use Status Tobacco use date assessed 05/23/24 05/23/24 08:51 Patient Tobacco Use Status Current everyday Tobacco 05/23/24 08:51 Tobacco use type Cigarette 05/23/24 08:51 e-Cigarette/Vaping Use Currently Using (sometimes ) 05/23/24 08:51 PHQ-9: PHQ-9 Score PHQ-9: Total score 0 05/23/24 09:06 Depression Screening Interpretation: Negative Thrive Assessment: Date of Thrive Assessment Date Thrive assessed 05/23/24 05/23/24 08:51 Currently or been in a relationship where the following occur: No concerns reported Coding Level of Care Code Est Pt Level 3 (47992) Diagnoses Dyslipidemia E78.5 HTN (hypertension) I10 Vitamin D deficiency E55.9 Additional Codes MOLLY-7 Assessment Billing - MOLLY-7 Assessment Tool: MOLLY-7 Assessment 73217 ([id number]) PHQ-9 - 36910 - PHQ-9 Billing: Yes ([id number]) Assessment & Plan Assessment & Plan (1) Dyslipidemia: Code(s): E78.5 - Hyperlipidemia, unspecified Category: Medical (2) HTN (hypertension): Code(s): I10 - Essential (primary) hypertension Category: Medical (3) Vitamin D deficiency: Code(s): E55.9 - Vitamin D deficiency, unspecified Category: Medical Plan . Orders: Orders TSH reflex Free T4 Today E78.5 - Hyperlipidemia, unspecified, I10 - Essential (primary) hypertension UA CC w/rflx Micro + Cult Today E78.5 - Hyperlipidemia, unspecified, I10 - Essential (primary) hypertension Lipid Panel Today E78.5 - Hyperlipidemia, unspecified, I10 - Essential (primary) hypertension Vitamin D 25-OH Total Today E55.9 - Vitamin D deficiency, unspecified Complete Blood Count Auto Diff Today E78.5 - Hyperlipidemia, unspecified, I10 - Essential (primary) hypertension Comprehensive [place]. Panel Fast Today E78.5 - Hyperlipidemia, unspecified, I10 - Essential (primary) hypertension
== END 2024-05-23 09:35 | disposition home or self-care (01) ==
LOC: HO.HMCC 08:48
PROVIDERS: PCP Nurse Practitioner Family; Visit Provider Nurse Practitioner Family
DX: E78.5 Hyperlipidemia, unspecified (principal); I10 Essential (primary) hypertension; E55.9 Vitamin D deficiency, unspecified

== ENCOUNTER → 2024-05-23 08:47 | Outpatient (BNVA) | payer MEDICARE, SELFPAY | PROVIDERS: PCP Nurse Practitioner Family; Visit Provider Nurse Practitioner Family | DX: E78.5 Hyperlipidemia, unspecified (principal); E55.9 Vitamin D deficiency, unspecified; I10 Essential (primary) hypertension | CPT/HCPCS: 96127; 99212 ==

== ENCOUNTER 2024-06-07 08:15 | Outpatient (AMB) | payer MEDICARE, SELFPAY ==
--- NOTE | 2024-06-07 08:41 | MHC.OFFVISCO ---
Intake Intake Visit Reasons: Anticoagulation Allergies No Known Allergies [No Known Allergies*] Allergy (Verified 06/07/24 08:39) Medication List - Last Reconciled 06/07/24 by Sarah Beth Gaines RN amlodipine 5 mg PO DAILY atorvastatin 20 mg PO DAILY 90 days cholecalciferol (vitamin D3) 50 mcg PO DAILY metoprolol succinate ER 25 mg PO DAILY multivitamin (One-A-Day Essential tablet) 1 tab PO DAILY pyridoxine (vitamin B6) 100 mg PO DAILY 90 days warfarin See Protocol 1-2 tabs per INR results orally daily; Nursing Note INR: 2.6 in therapeutic range Medications and supplements reviewed No changes in health, diet, medications, or supplements, Denies any signs and symptoms of bleeding or bruising or clotting. Bleeding, bruising, clotting discussed Nutritional guidance given Dose: same F/U INR: 3 weeks Patient verbalizes understanding of instructions given Anti-Coag Initial Assessment Social Hx Patient Tobacco Use Status: Current everyday Tobacco user Tobacco use type: Cigarette Smoking packs per day: 1 alcohol intake: former (quit etoh at age 28) Cardiovascular Hx: HTN and Arrhythmias (afib) Lung Disease HX: Other (hx collapsed lung approx 30 years ago) Blood Disorder Hx: Hyperlipidemia Hx: Bladder Disorders (bladder cancer 2 years ago, hx microscopic hematuria, renal calculi) Cancer HX: Yes Questionnaires HAS-BLED Does the patient had uncontrolled Hypertension?: No Does the patient have renal disease?: No Does the patient have liver disease?: No Does the patient have a history of stroke?: No Has the patient had major bleeding or predisposition to bleeding?: No Does the patient have labile INRs?: Yes Is the patient over 65 years of age?: Yes Is the patient on medications that gives them a predisposition to bleeding?: Yes Does the patient use alcohol?: No HAS-BLED Score: 3 CHADSVASC Age: 75 or over Gender: Male Does the patient have a history of CHF?: No Does the patient have a history of Hypertension?: Yes Does the patient have a history of Stroke/TIA/Thromboembolism?: No Does the patient have a history of Vascular Disease (prior NE, PAD or aortic plaque)?: No Does the patient have a history of Diabetes?: No CHADS VACS Score: 3 Amanda Prediction Score Rsk VTE Active Cancer: Yes Previous VTE, excluding superficial vein thrombosis: No Reduced mobility: No Already known Thrombophilic Condition: No With-in last month Trauma and/or Surgery: No Elderly 70 year or older: Yes Heart and/or Respiratory Failure: No Acute Myocardial infarction and/or Ischemic Stroke: No Acute Infection and/or Rheumatologic Disorder: No Obesity (BMI 30 or greater): No Ongoing Hormonal Treatment: No Score: 4 Amanda Score less than 4; Low Risk of VTE Amanda Score 4 or greater; High Risk of VTE Coding Level of Care Code Est Patient Level 1 Diagnoses Current use of anticoagulant therapy Z79.01 Results AMB INR Fingerstick AMB INR Fingerstick 2.6 Last Edit by Sarah Beth Gaines RN on 06/07/24 08:41 manual entry Assessment & Plan Assessment & Plan (1) Current use of anticoagulant therapy: Code(s): Z79.01 - [facility]DC (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
[2024-06-07 08:49] LABS: Prothrombin Time Whole Bld POC 31.4 sec (11.1-13.5); ~PT, ~INR - Anti Coag Clinic 2.6 (0.9-1.1)
== END 2024-06-07 08:43 | disposition home or self-care (01) ==
LOC: HO.ACS 08:15
PROVIDERS: PCP Nurse Practitioner Family; Visit Provider Internal Medicine Medical Oncology
DX: Z79.01 Long term (current) use of anticoagulants (principal)

== ENCOUNTER → 2024-06-07 08:15 | Outpatient (BNVA) | payer MEDICARE, SELFPAY | PROVIDERS: PCP Nurse Practitioner Family; Visit Provider Internal Medicine Medical Oncology | DX: I48.91 Unspecified atrial fibrillation (principal); Z79.01 Long term (current) use of anticoagulants; Z51.81 Encounter for therapeutic drug level monitoring | CPT/HCPCS: 85610; 99211 ==

== ENCOUNTER 2024-06-28 08:04 | Outpatient (AMB) | payer MEDICARE, SELFPAY ==
[2024-06-28 08:30] LABS: Prothrombin Time Whole Bld POC 26.7 sec (11.1-13.5); ~PT, ~INR - Anti Coag Clinic 2.2 (0.9-1.1)
--- NOTE | 2024-06-28 08:33 | MHC.OFFVISCO ---
Intake Intake Visit Reasons: Anticoagulation Allergies No Known Allergies [No Known Allergies*] Allergy (Verified 06/28/24 08:26) Medication List - Last Reconciled 06/28/24 by Bridgett Yoon, EMILI amlodipine 5 mg PO DAILY atorvastatin 20 mg PO DAILY 90 days cholecalciferol (vitamin D3) 50 mcg PO DAILY metoprolol succinate ER 25 mg PO DAILY multivitamin (One-A-Day Essential tablet) 1 tab PO DAILY pyridoxine (vitamin B6) 100 mg PO DAILY 90 days warfarin See Protocol 1-2 tabs per INR results orally daily; Nursing Note INR: 2.2 in therapeutic range of 2-3 Medications and supplements reviewed, no changes No changes in health, diet, medications, or supplements, Denies any signs and symptoms of bleeding or bruising or clotting. Bleeding, bruising, clotting discussed Nutritional guidance given to avoid greens today only and to have a serving of foods that raise the INR. Then balance the two. Dose: 4mg X 5 days and 3mg X 2 days F/U INR: 3 weeks Patient verbalizes understanding of instructions given Anti-Coag Initial Assessment Social Hx Patient Tobacco Use Status: Current everyday Tobacco user Tobacco use type: Cigarette Smoking packs per day: 1 alcohol intake: former (quit etoh at age 28) Cardiovascular Hx: HTN and Arrhythmias (afib) Lung Disease HX: Other (hx collapsed lung approx 30 years ago) Blood Disorder Hx: Hyperlipidemia Hx: Bladder Disorders (bladder cancer 2 years ago, hx microscopic hematuria, renal calculi) Cancer HX: Yes Coding Level of Care Code Est Patient Level 1 Diagnoses Current use of anticoagulant therapy Z79.01 Assessment & Plan Assessment & Plan (1) Current use of anticoagulant therapy: Code(s): Z79.01 - long term (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
== END 2024-06-28 08:38 | disposition home or self-care (01) ==
LOC: HO.ACS 08:04
PROVIDERS: PCP Nurse Practitioner Family; Visit Provider Internal Medicine Medical Oncology
DX: Z79.01 Long term (current) use of anticoagulants (principal)

== ENCOUNTER → 2024-06-28 08:04 | Outpatient (BNVA) | payer MEDICARE, SELFPAY | PROVIDERS: PCP Nurse Practitioner Family; Visit Provider Internal Medicine Medical Oncology | DX: I48.91 Unspecified atrial fibrillation (principal); Z79.01 Long term (current) use of anticoagulants; Z51.81 Encounter for therapeutic drug level monitoring | CPT/HCPCS: 85610; 99211 ==

== ENCOUNTER 2024-07-19 08:25 | Outpatient (AMB) | payer MEDICARE, SELFPAY ==
[2024-07-19 08:43] LABS: Prothrombin Time Whole Bld POC 29.9 sec (11.1-13.5); ~PT, ~INR - Anti Coag Clinic 2.5 (0.9-1.1)
--- NOTE | 2024-07-19 08:46 | MHC.OFFVISCO ---
Intake Intake Visit Reasons: Anticoagulation Allergies No Known Allergies [No Known Allergies*] Allergy (Verified 07/19/24 08:38) Medication List - Last Reconciled 07/19/24 by Sarah Beth Gaines RN amlodipine 5 mg PO DAILY atorvastatin 20 mg PO DAILY 90 days cholecalciferol (vitamin D3) 50 mcg PO DAILY metoprolol succinate ER 25 mg PO DAILY multivitamin (One-A-Day Essential tablet) 1 tab PO DAILY pyridoxine (vitamin B6) 100 mg PO DAILY 90 days warfarin See Protocol 1-2 tabs per INR results orally daily; Nursing Note INR: 2.5 in therapeutic range Medications and supplements reviewed- discussed importance in keeping same brands of vitamins because diff brands could diff amts of supplement that could effect the INR No changes in health, diet, medications, or supplements, Denies any signs and symptoms of bleeding or bruising or clotting. Bleeding, bruising, clotting discussed Nutritional guidance given Dose:3mg x 2 [id number] x 5 days F/U INR: 1 month Patient verbalizes understanding of instructions given Anti-Coag Initial Assessment Social Hx Patient Tobacco Use Status: Current everyday Tobacco user Tobacco use type: Cigarette Smoking packs per day: 1 alcohol intake: former (quit etoh at age 28) Cardiovascular Hx: HTN and Arrhythmias (afib) Lung Disease HX: Other (hx collapsed lung approx 30 years ago) Blood Disorder Hx: Hyperlipidemia Hx: Bladder Disorders (bladder cancer 2 years ago, hx microscopic hematuria, renal calculi) Cancer HX: Yes Coding Level of Care Code Est Patient Level 1 Diagnoses Current use of anticoagulant therapy Z79.01 Assessment & Plan Assessment & Plan (1) Current use of anticoagulant therapy: 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
== END 2024-07-19 08:50 | disposition home or self-care (01) ==
LOC: HO.ACS 08:25
PROVIDERS: PCP Nurse Practitioner Family; Visit Provider Internal Medicine Medical Oncology
DX: Z79.01 Long term (current) use of anticoagulants (principal)

== ENCOUNTER → 2024-07-19 08:25 | Outpatient (BNVA) | payer MEDICARE, SELFPAY | PROVIDERS: PCP Nurse Practitioner Family; Visit Provider Internal Medicine Medical Oncology | DX: I48.91 Unspecified atrial fibrillation (principal); Z79.01 Long term (current) use of anticoagulants; Z51.81 Encounter for therapeutic drug level monitoring | CPT/HCPCS: 85610; 99211 ==

== ENCOUNTER 2024-08-16 08:35 | Outpatient (AMB) | payer MEDICARE, SELFPAY ==
--- NOTE | 2024-08-16 08:40 | MHC.OFFVISCO ---
Intake Intake Visit Reasons: Anticoagulation Allergies No Known Allergies [No Known Allergies*] Allergy (Verified 08/16/24 08:35) Medication List - Last Reconciled 08/16/24 by Sarah Beth Gaines RN amlodipine 5 mg PO DAILY atorvastatin 20 mg PO DAILY 90 days cholecalciferol (vitamin D3) 50 mcg PO DAILY metoprolol succinate ER 25 mg PO DAILY multivitamin (One-A-Day Essential tablet) 1 tab PO DAILY pyridoxine (vitamin B6) 100 mg PO DAILY 90 days warfarin See Protocol 1-2 tabs per INR results orally daily; Nursing Note INR: 2.5 in therapeutic range Medications and supplements reviewed No changes in health, diet, medications, or supplements, Denies any signs and symptoms of bleeding or bruising or clotting. Bleeding, bruising, clotting discussed Nutritional guidance given Dose: Keep same dose 3mg x 2 days/ 4mg x 5 days F/U INR: 1 month Patient verbalizes understanding of instructions given Anti-Coag Initial Assessment Social Hx Patient Tobacco Use Status: Current everyday Tobacco user Tobacco use type: Cigarette Smoking packs per day: 1 alcohol intake: former (quit etoh at age 28) Cardiovascular Hx: HTN and Arrhythmias (afib) Lung Disease HX: Other (hx collapsed lung approx 30 years ago) Blood Disorder Hx: Hyperlipidemia Hx: Bladder Disorders (bladder cancer 2 years ago, hx microscopic hematuria, renal calculi) Cancer HX: Yes Coding Level of Care Code Est Patient Level 1 Diagnoses Current use of anticoagulant therapy Z79.01 Results AMB INR Fingerstick AMB INR Fingerstick 2.5 Last Edit by Sarah Beth Gaines RN on 08/16/24 08:41 MANUAL ENTRY ONGOING FAILED INTERFACING Assessment & Plan Assessment & Plan (1) Current use of anticoagulant therapy: Code(s): Z79.01 - prison (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
[2024-08-16 08:44] LABS: Prothrombin Time Whole Bld POC 29.8 sec (11.1-13.5); ~PT, ~INR - Anti Coag Clinic 2.5 (0.9-1.1)
== END 2024-08-16 08:45 | disposition home or self-care (01) ==
LOC: HO.ACS 08:35
PROVIDERS: PCP Nurse Practitioner Family; Visit Provider Internal Medicine Medical Oncology
DX: Z79.01 Long term (current) use of anticoagulants (principal)

== ENCOUNTER → 2024-08-16 08:35 | Outpatient (BNVA) | payer MEDICARE, SELFPAY | PROVIDERS: PCP Nurse Practitioner Family; Visit Provider Internal Medicine Medical Oncology | DX: I48.91 Unspecified atrial fibrillation (principal); Z79.01 Long term (current) use of anticoagulants; Z51.81 Encounter for therapeutic drug level monitoring | CPT/HCPCS: 85610; 99211 ==

== ENCOUNTER 2024-09-13 08:03 | Outpatient (AMB) | payer MEDICARE, SELFPAY ==
[2024-09-13 08:38] LABS: Prothrombin Time Whole Bld POC 40.5 sec (11.1-13.5); ~PT, ~INR - Anti Coag Clinic 3.4 (0.9-1.1)
--- NOTE | 2024-09-13 08:40 | MHC.OFFVISCO ---
Intake Intake Visit Reasons: Anticoagulation Allergies No Known Allergies (No Known Allergies*) Allergy (Verified 09/13/24 08:32) Medication List - Last Reconciled 09/13/24 by Sarah Beth Gaines RN amlodipine 5 mg PO DAILY atorvastatin 20 mg PO DAILY 90 days cholecalciferol (vitamin D3) 50 mcg PO DAILY metoprolol succinate ER 25 mg PO DAILY multivitamin (One-A-Day Essential tablet) 1 tab PO DAILY pyridoxine (vitamin B6) 100 mg PO DAILY 90 days warfarin See Protocol 1-2 tabs per INR results orally daily; Nursing Note INR: 3.4 Almost therapeutic range 2.0-3.0 Pt status: well, only change was diet that raise the INR: pt was away on vacation camping 2 weeks ago, then daughter left for another vacation after they returned - he did not eat his usual meals last week. Medications and supplements reviewed No changes in health, medications, or supplements, Denies any signs and symptoms of bleeding or bruising or clotting. Bleeding, bruising, clotting discussed Nutritional guidance given - resume usual greens Dose: 2mg today then resume usual dose 3mg x 2 days/ 4mg x 5 days F/U INR: 1 month per pt request Patient verbalizes understanding of instructions given Anti-Coag Initial Assessment Social Hx Patient Tobacco Use Status: Current everyday Tobacco user Tobacco use type: Cigarette Smoking packs per day: 1 alcohol intake: former (quit etoh at age 28) Cardiovascular Hx: HTN and Arrhythmias (afib) Lung Disease HX: Other (hx collapsed lung approx 30 years ago) Blood Disorder Hx: Hyperlipidemia Hx: Bladder Disorders (bladder cancer 2 years ago, hx microscopic hematuria, renal calculi) Cancer HX: Yes Coding Level of Care Code Est Patient Level 1 Diagnoses Current use of anticoagulant therapy Z79.01 Results AMB INR Fingerstick AMB INR Fingerstick 3.4 Last Edit by Sarah Beth Gaines RN on 09/13/24 08:38 Assessment & Plan Assessment & Plan (1) Current use of anticoagulant therapy: 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
== END 2024-09-13 08:49 | disposition home or self-care (01) ==
LOC: HO.ACS 08:03
PROVIDERS: PCP Nurse Practitioner Family; Visit Provider Internal Medicine Medical Oncology
DX: Z79.01 Long term (current) use of anticoagulants (principal)

== ENCOUNTER → 2024-09-13 08:03 | Outpatient (BNVA) | payer MEDICARE, SELFPAY | PROVIDERS: PCP Nurse Practitioner Family; Visit Provider Internal Medicine Medical Oncology | DX: I48.91 Unspecified atrial fibrillation (principal); Z79.01 Long term (current) use of anticoagulants; Z51.81 Encounter for therapeutic drug level monitoring | CPT/HCPCS: 85610; 99211 ==

== ENCOUNTER 2024-09-19 06:48 | Outpatient (REF) | payer MEDICARE, SELFPAY ==
[2024-09-19 10:45] LABS: Hematocrit 44.7 % (42.0-52.0); Hemoglobin 14.4 g/dl (14.0-18.0); Imm Gran Abs Auto 0.04 X10*3/uL (0.00-0.03); Imm Gran Pct Auto 0.2 % (0.0-0.4); Lymphocytes Absolute Auto 17.1 X10*3/uL (1.2-4.9); MANUAL DIFF FLAG SCAN; Mean Corpuscular HGB Conc 32.2 g/dl (31.0-36.0); Mean Corpuscular Hemoglobin 31.8 pg (27.0-33.0); Mean Corpuscular Volume 98.7 fL (80.0-98.0); NRBC Abs Auto 0.000 X10*3/uL (0.0-0.012); NRBC Pct Auto 0.0 /100WBC (0.0-0.2); Platelet Count 221 X10*3/uL (160-400); Red Blood Count 4.53 X10*6/uL (4.60-5.80); SCAN SMEAR FLAG 1; White Blood Count 22.4 X10*3/uL (4.8-10.8)
[2024-09-19 10:49] LABS: Appearance Urine Clear; Glucose Urine UA Negative (Negative); PH 6.0 (5.0-9.0); Specific Gravity - Urine 1.015 (1.005-1.025); UMIC TRIGGER UACC YES
[2024-09-19 11:05] LABS: Alanine Aminotransferase 30 U/L (0-40); Albumin Level 3.9 g/dL (3.5-5.0); Alkaline Phosphatase 82 U/L (39-117); Anion Gap 9 (12-20); Aspartate Amino Transferase 37 U/L (5-37); Blood Urea Nitrogen 12 mg/dL (9-16); Calcium 8.7 mg/dL (8.4-10.2); Carbon Dioxide 30 mmol/L (22-29); Chloride 107 mmol/L (96-108); Cholesterol 90 mg/dL (<200); Estimated Glomerular Filt Rate > 60; HDL Cholesterol 33 mg/dL (>40); Potassium 3.9 mmol/L (3.3-5.1); Sodium 142 mmol/L (135-145); Total Protein 6.0 g/dL (6.5-8.0); Triglycerides 70 mg/dL (<150)
[2024-09-19 12:37] LABS: Free T4 (Free Thyroxine) 0.94 ng/dL (0.71-1.85)
== END 2024-09-19 06:49 | disposition home or self-care (01) ==
LOC: HO.HMGCLDS 06:48
PROVIDERS: PCP Nurse Practitioner Family; Visit Provider Nurse Practitioner Family
DX: I10 Essential (primary) hypertension (principal); E78.5 Hyperlipidemia, unspecified; E55.9 Vitamin D deficiency, unspecified
CPT/HCPCS: 36415; 80053; 80061; 81001; 82306; 84439; 84443; 85025

== ENCOUNTER 2024-10-11 08:19 | Outpatient (AMB) | payer MEDICARE, SELFPAY ==
[2024-10-11 08:23] LABS: Prothrombin Time Whole Bld POC 37.7 sec (11.1-13.5); ~PT, ~INR - Anti Coag Clinic 3.1 (0.9-1.1)
--- NOTE | 2024-10-11 08:30 | MHC.OFFVISCO ---
Intake Intake Visit Reasons: Anticoagulation Allergies No Known Allergies (No Known Allergies*) Allergy (Verified 10/11/24 08:19) Medication List - Last Reconciled 10/11/24 by Bridgett Yoon RN amlodipine 5 mg PO DAILY atorvastatin 20 mg PO DAILY 90 days cholecalciferol (vitamin D3) 50 mcg PO DAILY metoprolol succinate ER 25 mg PO DAILY multivitamin (One-A-Day Essential tablet) 1 tab PO DAILY pyridoxine (vitamin B6) 100 mg PO DAILY 90 days warfarin See Protocol 1-2 tabs per INR results orally daily; Nursing Note INR: 3.1out of therapeutic range of 2-3 Medications and supplements reviewed No changes in health, medications, or supplements, Pt states his diet is a little different in the summer and he eats less with more [place] tomatoes and summer fruits which can raise the INR Denies any signs and symptoms of bleeding or bruising or clotting. Bleeding, bruising, clotting discussed Nutritional guidance given to have a serving of greens today Dose: weekly dose total decreased by 1mg. He will take 4mg X 4 days and 3mg X 3 days F/U INR: 2 weeks Patient verbalizes understanding of instructions given Anti-Coag Initial Assessment Social Hx Patient Tobacco Use Status: Current everyday Tobacco user Tobacco use type: Cigarette Smoking packs per day: 1 alcohol intake: former (quit etoh at age 28) Cardiovascular Hx: HTN and Arrhythmias (afib) Lung Disease HX: Other (hx collapsed lung approx 30 years ago) Blood Disorder Hx: Hyperlipidemia Hx: Bladder Disorders (bladder cancer 2 years ago, hx microscopic hematuria, renal calculi) Cancer HX: Yes Coding Level of Care Code Est Patient Level 1 Diagnoses Current use of anticoagulant therapy Z79.01 Results AMB INR Fingerstick AMB INR Fingerstick 3.1 Last Edit by Bridgett Yoon RN on 10/11/24 08:30 interface delay Assessment & Plan Assessment & Plan (1) Current use of anticoagulant therapy: 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
== END 2024-10-11 08:37 | disposition home or self-care (01) ==
LOC: HO.ACS 08:19
PROVIDERS: PCP Nurse Practitioner Family; Visit Provider Internal Medicine Medical Oncology
DX: Z79.01 Long term (current) use of anticoagulants (principal)

== ENCOUNTER → 2024-10-11 08:19 | Outpatient (BNVA) | payer MEDICARE, SELFPAY | PROVIDERS: PCP Nurse Practitioner Family; Visit Provider Internal Medicine Medical Oncology | DX: Z51.81 Encounter for therapeutic drug level monitoring (principal); Z79.01 Long term (current) use of anticoagulants | CPT/HCPCS: 85610; 99211 ==

== ENCOUNTER 2024-10-20 08:46 | Outpatient (AMB) | payer MEDICARE, SELFPAY ==
[2024-10-20 08:53] VITALS: BP 118/60; PULSE 68; BMI 17.8
--- NOTE | 2024-10-20 08:53 | MHC.OFFVIS ---
Vital Signs 10/20/24 08:53 Height 6 ft 2 in Weight 139 lb BMI 17.8 BP 118/60 Blood Pressure Location Lt brachial Position Sitting Pulse 68 Pulse Source Pulse Oximeter Intake Visit Reasons: 6m follow up Allergies No Known Allergies (No Known Allergies*) Allergy (Verified 10/11/24 08:19) Medication List - Last Reconciled 10/20/24 by Nakul Crook MD amlodipine 5 mg PO DAILY atorvastatin 20 mg PO DAILY 90 days cholecalciferol (vitamin D3) 50 mcg PO DAILY metoprolol succinate ER 25 mg PO DAILY multivitamin (One-A-Day Essential tablet) 1 tab PO DAILY pyridoxine (vitamin B6) 100 mg PO DAILY 90 days warfarin See Protocol 1-2 tabs per INR results orally daily; HPI Comments Details: Valerio returns for follow-up. Originally, he was seen regarding question of atrial fibrillation but workup showed sinus rhythm with frequent supraventricular ectopy. However, during follow-up, detected to have atrial fibrillation and now treated for the same. He is on a small dose of beta-hanny and on Coumadin for anticoagulation. No cardiac symptoms or concerns. Chronic smoker and still smokes. [facility] Medical History (Updated 05/23/24 @ 09:30 by Georgi Kim, [facility]) HTN (hypertension) Bladder cancer Nicotine dependence, cigarettes, uncomplicated Atrial fibrillation PAC (premature atrial contraction) Renal calculi Family history of prostate cancer Immunocompromised CLL (chronic lymphocytic leukemia) Gynecomastia Dyslipidemia Thyroglossal duct cyst Surgical History History of bladder surgery Hx of lithotripsy H/O colonoscopy Family History Father History of prostate cancer Social History Housing: House Alcohol intake: former (quit etoh at age 28) Patient Tobacco Use Status: Current everyday Tobacco user Tobacco use type: Cigarette Cigarette Packs Per Day: 1 Cigarettes Per Day: 20.0 e-Cigarette/Vaping Use: Currently Using (sometimes ) Second Hand Smoke Exposure: No service: No Current occupational status: retired 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[employer], 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 Current occupational exposures/hazards: No Cognitive needs: No Hearing needs: No Vision needs: No Review of Systems Const Denies weakness ENT Denies dizziness Card Denies chest pain, Denies chest pain with activity, Denies syncope, Denies rapid heart rate, Denies pedal edema, Denies edema, Denies leg edema, Denies lightheadedness, Denies palpitations, Denies dyspnea, Denies dyspnea on exertion and Denies orthopnea Resp Denies cough, Denies dyspnea and Denies dyspnea on exertion GI Denies hematochezia and Denies change in stool character Musc Denies abnormal gait, Denies muscle cramps, Denies muscle weakness, Denies numbness, Denies radiating pain into limb and Denies tingling Neuro Denies abnormal gait, Denies dizziness, Denies syncope, Denies numbness, Denies tingling and Denies weakness Endo Denies palpitations Physical Exam Vital Signs: Last Vital Signs Pulse 68 10/20/24 08:53 BP 118/60 10/20/24 08:53 BMI result Body Mass Index 17.8 Const General: comfortable and no acute distress Orientation/consciousness: patient oriented x3 HEENT Other: Unremarkable Head: Yes normal to inspection Neck Neck: Yes normal visual inspection Chest Chest palpation & inspection: normal inspection of the chest Resp Auscultation: clear to auscultation bilaterally Cardio Palpation: normal PMI Heart sounds: S1 normal heart sound present, S2 normal heart sound present, no gallops, no murmurs and no rubs GI Palpation (GI): Soft to palpation Back/Spine/Pelvis Other: unremarkable Skin General skin exam: no rashes or lesions noted Neuro General: patient oriented x3 Extrem General: Yes normal to inspection Psych Mental Status: mental status grossly normal Assessment & Plan Assessment & Plan (1) Persistent atrial fibrillation: Code(s): I48.19 - Other persistent atrial fibrillation Category: Medical Plan: Cardiac studies reviewed. Echocardiogram with LVEF of 55-60%. Mild biatrial enlargement but otherwise unremarkable. Myocardial perfusion imaging study from 2021 shows normal perfusion. Holter 2023 shows underlying atrial fibrillation with an average rate of 73/Min. Clinically, asymptomatic. Continue beta-blockers and Coumadin. (2) HTN (hypertension): Code(s): I10 - Essential (primary) hypertension Category: Medical Plan: On Amlodipine. Controlled. (3) Smoking: Code(s): F17.200 - Nicotine dependence, unspecified, uncomplicated Category: Social Hx Plan: Long-term smoker, again discussed about smoking cessation today. Coding Level of Care Code Est Pt Level 4 (24549) Complex EM visit Add On G2211 Diagnoses Persistent atrial fibrillation I48.19 HTN (hypertension) I10 Smoking F17.200
== END 2024-10-20 09:05 | disposition home or self-care (01) ==
LOC: HO.HCS 08:51
PROVIDERS: PCP Nurse Practitioner Family; Visit Provider Internal Medicine
DX: I48.19 Other persistent atrial fibrillation (principal); I10 Essential (primary) hypertension; F17.200 Nicotine dependence, unspecified, uncomplicated
CPT/HCPCS: 99214; G2211

== ENCOUNTER → 2024-10-20 08:46 | Outpatient (BNVA) | payer MEDICARE, SELFPAY | PROVIDERS: PCP Nurse Practitioner Family; Visit Provider Internal Medicine | DX: I48.19 Other persistent atrial fibrillation (principal); I10 Essential (primary) hypertension; F17.210 Nicotine dependence, cigarettes, uncomplicated | CPT/HCPCS: 99212 ==

== ENCOUNTER 2024-10-24 08:11 | Outpatient (AMB) | payer MEDICARE, SELFPAY ==
[2024-10-24 08:19] LABS: Prothrombin Time Whole Bld POC 24.7 sec (11.1-13.5); ~PT, ~INR - Anti Coag Clinic 2.1 (0.9-1.1)
--- NOTE | 2024-10-24 08:24 | MHC.OFFVISCO ---
Intake Intake Visit Reasons: Anticoagulation Allergies No Known Allergies (No Known Allergies*) Allergy (Verified 10/24/24 08:13) Medication List - Last Reconciled 10/24/24 by Sarah Beth Gaines RN amlodipine 5 mg PO DAILY atorvastatin 20 mg PO DAILY 90 days cholecalciferol (vitamin D3) 50 mcg PO DAILY metoprolol succinate ER 25 mg PO DAILY multivitamin (One-A-Day Essential tablet) 1 tab PO DAILY pyridoxine (vitamin B6) 100 mg PO DAILY 90 days warfarin See Protocol 1-2 tabs per INR results orally daily; Nursing Note INR: 2.1 in therapeutic range Medications and supplements reviewed No changes in diet, medications, or supplements, * Pt states he has elevated WBCs(22.4) Hx of leukemia and 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 Denies any signs and symptoms of bleeding or bruising or clotting. Bleeding, bruising, clotting discussed Nutritional guidance given - discussed diet with heat, seasonal foods and smokimg Dose: pt would like to resume usual dose 3mg x 2 days 4mg c 5 days F/U INR: 2 weeks per pt request Patient verbalizes understanding of instructions given Anti-Coag Initial Assessment Social Hx Patient Tobacco Use Status: Current everyday Tobacco user Tobacco use type: Cigarette Smoking packs per day: 1 alcohol intake: former (quit etoh at age 28) Cardiovascular Hx: HTN and Arrhythmias (afib) Lung Disease HX: Other (hx collapsed lung approx 30 years ago) Blood Disorder Hx: Hyperlipidemia Hx: Bladder Disorders (bladder cancer 2 years ago, hx microscopic hematuria, renal calculi) Cancer HX: Yes Coding Level of Care Code Est Patient Level 1 Diagnoses Current use of anticoagulant therapy Z79.01 Assessment & Plan Assessment & Plan (1) Current use of anticoagulant therapy: Code(s): Z79.01 - skilled nursing (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
== END 2024-10-24 09:01 | disposition home or self-care (01) ==
LOC: HO.ACS 08:11
PROVIDERS: PCP Nurse Practitioner Family; Visit Provider Internal Medicine Medical Oncology
DX: Z79.01 Long term (current) use of anticoagulants (principal)

== ENCOUNTER → 2024-10-24 08:11 | Outpatient (BNVA) | payer MEDICARE, SELFPAY | PROVIDERS: PCP Nurse Practitioner Family; Visit Provider Internal Medicine Medical Oncology | DX: Z51.81 Encounter for therapeutic drug level monitoring (principal); Z79.01 Long term (current) use of anticoagulants | CPT/HCPCS: 85610; 99211 ==

== ENCOUNTER 2024-11-09 08:37 | Outpatient (AMB) | payer MEDICARE, SELFPAY ==
[2024-11-09 08:51] LABS: Prothrombin Time Whole Bld POC 30.8 sec (11.1-13.5); ~PT, ~INR - Anti Coag Clinic 2.6 (0.9-1.1)
--- NOTE | 2024-11-09 08:53 | MHC.OFFVISCO ---
Intake Intake Visit Reasons: Anticoagulation Allergies No Known Allergies (No Known Allergies*) Allergy (Verified 11/09/24 08:46) Medication List - Last Reconciled 11/09/24 by Rina Rivera RN amlodipine 5 mg PO DAILY atorvastatin 20 mg PO DAILY 90 days cholecalciferol (vitamin D3) 50 mcg PO DAILY metoprolol succinate ER 25 mg PO DAILY multivitamin (One-A-Day Essential tablet) 1 tab PO DAILY pyridoxine (vitamin B6) 100 mg PO DAILY 90 days warfarin See Protocol 1-2 tabs per INR results orally daily; Nursing Note NO CP,SOB,DIET/MED CHANGES,FALLS OR SX OF BLEEDING. CONTINUE PRESSENT DOSE AND FOLLOW-UP IN 3 WEEKS GOOD UNDERSTANDING OF DOSING INSTR. Anti-Coag Initial Assessment Social Hx Patient Tobacco Use Status: Current everyday Tobacco user Tobacco use type: Cigarette Smoking packs per day: 1 alcohol intake: former (quit etoh at age 28) Cardiovascular Hx: HTN and Arrhythmias (afib) Lung Disease HX: Other (hx collapsed lung approx 30 years ago) Blood Disorder Hx: Hyperlipidemia Hx: Bladder Disorders (bladder cancer 2 years ago, hx microscopic hematuria, renal calculi) Cancer HX: Yes Coding Level of Care Code Est Patient Level 1 Diagnoses Current use of anticoagulant therapy Z79.01 Results AMB INR Fingerstick AMB INR Fingerstick 2.6 Last Edit by Rina Rivera RN on 11/09/24 08:52 Assessment & Plan Assessment & Plan (1) Current use of anticoagulant therapy: 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
== END 2024-11-09 08:55 | disposition home or self-care (01) ==
LOC: HO.ACS 08:37
PROVIDERS: PCP Nurse Practitioner Family; Visit Provider Internal Medicine Medical Oncology
DX: Z79.01 Long term (current) use of anticoagulants (principal)

== ENCOUNTER → 2024-11-09 08:37 | Outpatient (BNVA) | payer MEDICARE, SELFPAY | PROVIDERS: PCP Nurse Practitioner Family; Visit Provider Internal Medicine Medical Oncology | DX: Z51.81 Encounter for therapeutic drug level monitoring (principal); Z79.01 Long term (current) use of anticoagulants | CPT/HCPCS: 85610; 99211 ==

== ENCOUNTER 2024-11-30 08:19 | Outpatient (AMB) | payer MEDICARE, SELFPAY ==
--- NOTE | 2024-11-30 08:39 | MHC.OFFVISCO ---
Intake Intake Visit Reasons: Anticoagulation Allergies No Known Allergies (No Known Allergies*) Allergy (Verified 11/30/24 08:35) Medication List - Last Reconciled 11/30/24 by Avelina Pierre RN amlodipine 5 mg PO DAILY atorvastatin 20 mg PO DAILY 90 days cholecalciferol (vitamin D3) 50 mcg PO DAILY metoprolol succinate ER 25 mg PO DAILY multivitamin (One-A-Day Essential tablet) 1 tab PO DAILY pyridoxine (vitamin B6) 100 mg PO DAILY 90 days warfarin See Protocol 1-2 tabs per INR results orally daily; Nursing Note INR: 2.3- in therapeutic range of 2-3 Medications and supplements reviewed- no changes No changes in health, diet, medications, or supplements, Denies any signs and symptoms of bleeding or bruising or clotting. Bleeding, bruising, clotting discussed Nutritional guidance given Dose: 3mg x 2, 4mg x 5 F/U INR: 3 weeks Patient verbalizes understanding of instructions given Anti-Coag Initial Assessment Social Hx Patient Tobacco Use Status: Current everyday Tobacco user Tobacco use type: Cigarette Smoking packs per day: 1 alcohol intake: former (quit etoh at age 28) Cardiovascular Hx: HTN and Arrhythmias (afib) Lung Disease HX: Other (hx collapsed lung approx 30 years ago) Blood Disorder Hx: Hyperlipidemia Hx: Bladder Disorders (bladder cancer 2 years ago, hx microscopic hematuria, renal calculi) Cancer HX: Yes Coding Level of Care Code Est Patient Level 1 Diagnoses Current use of anticoagulant therapy Z79.01 Assessment & Plan Assessment & Plan (1) Current use of anticoagulant therapy: Code(s): Z79.01 - half-way (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
[2024-11-30 08:40] LABS: Prothrombin Time Whole Bld POC 27.1 sec (11.1-13.5); ~PT, ~INR - Anti Coag Clinic 2.3 (0.9-1.1)
== END 2024-11-30 08:47 | disposition home or self-care (01) ==
PROVIDERS: PCP Nurse Practitioner Family; Visit Provider Internal Medicine Medical Oncology
DX: Z79.01 Long term (current) use of anticoagulants (principal)

== ENCOUNTER → 2024-11-30 08:19 | Outpatient (BNVA) | payer MEDICARE, SELFPAY | PROVIDERS: PCP Nurse Practitioner Family; Visit Provider Internal Medicine Medical Oncology | DX: Z51.81 Encounter for therapeutic drug level monitoring (principal); Z79.01 Long term (current) use of anticoagulants | CPT/HCPCS: 85610; 99211 ==

== ENCOUNTER 2024-12-21 08:17 | Outpatient (AMB) | payer MEDICARE, SELFPAY ==
--- NOTE | 2024-12-21 08:31 | MHC.OFFVISCO ---
Intake Intake Visit Reasons: Anticoagulation Allergies No Known Allergies (No Known Allergies*) Allergy (Verified 12/21/24 08:28) Medication List - Last Reconciled 12/21/24 by Avelina Pierre RN amlodipine 5 mg PO DAILY atorvastatin 20 mg PO DAILY 90 days cholecalciferol (vitamin D3) 50 mcg PO DAILY metoprolol succinate ER 25 mg PO DAILY multivitamin (One-A-Day Essential tablet) 1 tab PO DAILY pyridoxine (vitamin B6) 100 mg PO DAILY 90 days warfarin See Protocol 1-2 tabs per INR results orally daily; Nursing Note INR: 2.8- in therapeutic range 2-3 Medications and supplements reviewed- no changes No changes in health, diet, medications, or supplements, Denies any signs and symptoms of bleeding or bruising or clotting. Bleeding, bruising, clotting discussed Nutritional guidance given Dose: 4mg x 5, 3mg x 2 F/U INR: pt req 4 weeks Patient verbalizes understanding of instructions given Anti-Coag Initial Assessment Social Hx Patient Tobacco Use Status: Current everyday Tobacco user Tobacco use type: Cigarette Smoking packs per day: 1 alcohol intake: former (quit etoh at age 28) Cardiovascular Hx: HTN and Arrhythmias (afib) Lung Disease HX: Other (hx collapsed lung approx 30 years ago) Blood Disorder Hx: Hyperlipidemia Hx: Bladder Disorders (bladder cancer 2 years ago, hx microscopic hematuria, renal calculi) Cancer HX: Yes Coding Level of Care Code Est Patient Level 1 Diagnoses Current use of anticoagulant therapy Z79.01 Results AMB INR Fingerstick AMB INR Fingerstick 2.8 Last Edit by Avelina Pierre RN on 12/21/24 08:33 interface delay Assessment & Plan Assessment & Plan (1) Current use of anticoagulant therapy: 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
[2024-12-22 08:19] LABS: Prothrombin Time Whole Bld POC 34.0 sec (11.1-13.5); ~PT, ~INR - Anti Coag Clinic 2.8 (0.9-1.1)
== END 2024-12-21 08:40 | disposition home or self-care (01) ==
LOC: HO.ACS 08:17
PROVIDERS: PCP Nurse Practitioner Family; Visit Provider Internal Medicine Medical Oncology
DX: Z79.01 Long term (current) use of anticoagulants (principal)

== ENCOUNTER → 2024-12-21 08:17 | Outpatient (BNVA) | payer MEDICARE, SELFPAY | PROVIDERS: PCP Nurse Practitioner Family; Visit Provider Internal Medicine Medical Oncology | DX: Z51.81 Encounter for therapeutic drug level monitoring (principal); Z79.01 Long term (current) use of anticoagulants | CPT/HCPCS: 85610; 99211 ==

== ENCOUNTER 2025-01-18 08:06 | Outpatient (AMB) | payer MEDICARE, SELFPAY ==
--- NOTE | 2025-01-18 08:14 | MHC.OFFVISCO ---
Intake Intake Visit Reasons: Anticoagulation Allergies No Known Allergies (No Known Allergies*) Allergy (Verified 01/18/25 08:09) Medication List - Last Reconciled 01/18/25 by Avelina Pierre RN amlodipine 5 mg PO DAILY atorvastatin 20 mg PO DAILY 90 days cholecalciferol (vitamin D3) 50 mcg PO DAILY metoprolol succinate ER 25 mg PO DAILY multivitamin (One-A-Day Essential tablet) 1 tab PO DAILY pyridoxine (vitamin B6) 100 mg PO DAILY 90 days warfarin See Protocol 1-2 tabs per INR results orally daily; Nursing Note INR: 3.1- in therapeutic range 2-3 Medications and supplements reviewed- no changes No changes in health, diet, medications, or supplements, Denies any signs and symptoms of bleeding or bruising or clotting. Bleeding, bruising, clotting discussed Nutritional guidance given - eat a green today Dose: cont reg dosing- 3mg x 2, 4mg x 5 F/U INR: pt req 4 weeks Patient verbalizes understanding of instructions given Anti-Coag Initial Assessment Social Hx Patient Tobacco Use Status: Current everyday Tobacco user Tobacco use type: Cigarette Smoking packs per day: 1 alcohol intake: former (quit etoh at age 28) Cardiovascular Hx: HTN and Arrhythmias (afib) Lung Disease HX: Other (hx collapsed lung approx 30 years ago) Blood Disorder Hx: Hyperlipidemia Hx: Bladder Disorders (bladder cancer 2 years ago, hx microscopic hematuria, renal calculi) Cancer HX: Yes Coding Level of Care Code Est Patient Level 1 Diagnoses Current use of anticoagulant therapy Z79.01 Results AMB INR Fingerstick AMB INR Fingerstick 3.1 Last Edit by Avelina Pierre RN on 01/18/25 08:16 interface delay Assessment & Plan Assessment & Plan (1) Current use of anticoagulant therapy: 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
[2025-01-18 11:04] LABS: Prothrombin Time Whole Bld POC 37.5 sec (11.1-13.5); ~PT, ~INR - Anti Coag Clinic 3.1 (0.9-1.1)
== END 2025-01-18 08:20 | disposition home or self-care (01) ==
LOC: HO.ACS 08:06
PROVIDERS: PCP Nurse Practitioner Family; Visit Provider Internal Medicine Medical Oncology
DX: Z79.01 Long term (current) use of anticoagulants (principal)

== ENCOUNTER → 2025-01-18 08:06 | Outpatient (BNVA) | payer MEDICARE, SELFPAY | PROVIDERS: PCP Nurse Practitioner Family; Visit Provider Internal Medicine Medical Oncology | DX: I48.91 Unspecified atrial fibrillation (principal); Z51.81 Encounter for therapeutic drug level monitoring; Z79.01 Long term (current) use of anticoagulants | CPT/HCPCS: 85610; 99211 ==

== ENCOUNTER 2025-02-09 13:05 | Outpatient (AMB) | payer MEDICARE, SELFPAY ==
--- NOTE | 2025-02-09 13:08 | AM.OFFVISMDC ---
Intake Vital Signs 02/09/25 13:09 Height 6 ft 2 in Weight 137 lb BMI 17.6 BP 120/78 Blood Pressure Location Lt brachial Position Sitting Respiration 18 Pulse 72 Pulse Source Pulse Oximeter Temp 97.6 F Temp Source Oral Pulse Oximetry (%) 95 Oxygen Delivery Method Room Air Intake Visit Reasons: AWV G0438 Allergies No Known Allergies (No Known Allergies*) Allergy (Verified 02/09/25 13:11) HPI AWV G0438 HPI Details here for AWV: ccc and ppp in scan pile HPI Comments History of Present Illness Details Hx of bladder carcinoma. last seen urology in 2022, missed appts. Pt does see a oncologist for CLL. He reports for approx 2 weeks now having blood in his urine, but not with every void. Denies an flank pains, pressure, fevers, chills, n/v. [facility] Medical History (Updated 02/09/25 @ 13:43 by Georgi Kim, [facility]) HTN (hypertension) Bladder cancer Nicotine dependence, cigarettes, uncomplicated Atrial fibrillation PAC (premature atrial contraction) Renal calculi Family history of prostate cancer Immunocompromised CLL (chronic lymphocytic leukemia) Gynecomastia Dyslipidemia Thyroglossal duct cyst Surgical History History of bladder surgery Hx of lithotripsy H/O colonoscopy Family History Father History of prostate cancer Social History Housing: House Alcohol intake: former (quit etoh at age 28) Patient Tobacco Use Status: Current everyday Tobacco user Tobacco use type: Cigarette Cigarette Packs Per Day: 1 Cigarettes Per Day: 20.0 e-Cigarette/Vaping Use: Currently Using (sometimes ) Second Hand Smoke Exposure: No service: No Current occupational status: retired 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[employer], 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 Current occupational exposures/hazards: No Cognitive needs: No Hearing needs: No Vision needs: No Questionnaire Medicare Wellness Checkup [age] What gender do you identify with?: male During the past 4 weeks, how much have you been bothered by emotional problems such as feeling anxious, depressed, irritable, sad or downhearted, and blue?: not at all During the past 4 weeks, has your physical & emotional health limited your social activities with family, friends, neighbors, or groups?: not at all During the past 4 weeks, how much bodily pain have you generally had?: no pain During the past 4 weeks, was someone available to help you if you needed & wanted help?: yes, as much as I wanted During the past 4 weeks, what was the hardest physical activity you could do for at least 2 minutes?: heavy Can you get to places out of walking distance without help? (For eg., can you travel alone on buses, taxis or drive your car?): Yes Can you go shopping for groceries or clothes without someone's help?: Yes Can you prepare your own meals?: Yes Can you do your housework without help?: Yes Because of any health problems, do you need the help of another person with your personal care needs such as eating, bathing, dressing or getting around the house?: No Can you handle your own money without help?: Yes During the past 4 weeks, how would you rate your health in general?: very good During the past 4 weeks how have things been going for you?: very well; could hardly better Are you having difficulties driving your car?: no Do you always fasten your seat belt when you are in a car?: yes, usually During past 4 weeks, have you been bothered by the following: never: Falling or dizzy when standing up, Trouble eating well?, Teeth or denture problems?, Problems using the telephone? and Tiredness or fatigue? and seldom: Sexual problems? Have you fallen 2 or more times in the past year?: No Are you afraid of falling?: No Are you a smoker?: yes, and I might quit During the past 4 weeks, how many drinks of wine, beer, or other alcoholic beverages did you have?: no alcohol at all Do you exercise for about 20 minutes 3 or more times a week?: yes, most of the time Have you been given information to help with the following?: yes: Hazards in your house that might hurt you? and yes: Keeping track of your medications? How often do you have trouble taking medicines the way you have been told to take them?: I always take medicine as prescribed How confident are you that you can control & manage most of your health problems?: very confident What is your race?: White Mini Mental State Exam (MMSE) Orientation What is the (year) (season) (date) (day) (month)?: year, season, date, day and month Where are we (state) (county) (town or city) (hospital) (floor)?: state, county, town or city, hospital/clinic and floor Attention & Calculation (CHOOSE ONE) Spell WORLD backwards (DLROW): 5 letters Recall Ask patient to repeat the 3 items from question #3.: object 1, object 2 and object 3 Language Show patient a wristwatch & ask what it is. Repeat for pencil.: watch and pencil Ask the patient to repeat the phrase 'No ifs, ands, or buts' after you.: correct Ask the patient to 'take a piece of paper with their right hand' 'fold paper in half' 'place paper on floor': take paper in right hand, fold paper in half and place paper on floor Print the sentence 'CLOSE YOUR EYES' on a piece. If patient actually closes eyes then score.: followed written direction Give patient a blank piece of paper & ask to write a sentence. Score if it contains a noun & verb.: sentence contains subject and verb Ask patient to copy figure of intersecting pentagons exactly. Score if all 10 angles & 2 intersects are included.: all 10 angles present & 2 are intersected Score Score: 27 Activity of Daily Living Bathing - sponge bath, tub bath or shower: receives no assistance (gets in/out by self, if usual bathing means Dressing - getting clothes from closets & drawers, including inner/outer garments & fasteners.: gets clothes & gets completely dressed without help Toileting - going to the 'toilet room' for urine/bowel elimination & cleaning self/arranging clothes: goes to toilet room, cleans self, arranges clothes without help Transfer: moves in & out of bed and chair without help (may use support object) Continence: controls urination/bowel movements completely by self Feeding: feeds self without help Total Score: 0 Information obtained from: patient Using telephone: independent Traveling: independent Shopping: independent Preparing meals: independent Housework: independent Taking medicine: independent Managing money: independent PHQ-9 Over the last 2 weeks, how often have you been bothered by any of the following problems? 1. Little interest or pleasure in doing things: not at all 2. Feeling down, depressed, or hopeless: not at all 3. Trouble falling or staying asleep, or sleeping too much: not at all 4. Feeling tired or having little energy: not at all 5. Poor appetite or overeating: not at all 6. Feeling bad about yourself - or that you are a failure or have let yourself or your family down: not at all 7. Trouble concentrating on things, such as reading the newspaper or watching television: not at all 8. Moving or speaking so slowly that other people could have noticed. Or the opposite - being so fidgety or restless that you have been moving around a lot more than usual: not at all 9. Thoughts that you would be better off or of hurting yourself in some way: not at all Total score: 0 Depression Screening Interpretation: Negative Depression Screening Done: Yes 40445 - PHQ-9 Billing: Yes Source: Developed by Drs. Darren Pepper, Natalie Bhatia, Tk Neumann and colleagues, with an educational ralph from [employer]. Review of Systems Const Denies frequent falls and Denies headache(s) ENT Denies change in voice, Denies vertigo, Denies dizziness and Denies headache(s) Card Denies chest pain at rest, Denies chest pain with activity, Denies syncope and Denies dyspnea Resp Denies dyspnea GI Denies hematochezia and Denies change in bowel habits Reports hematuria Neuro Denies confusion, Denies vertigo, Denies dizziness, Denies syncope, Denies frequent falls, Denies headache(s) and Denies seizure-like activity Psych Denies confusion Physical Exam Vital Signs: Last Vital Signs Temp 97.6 F 02/09/25 13:09 Pulse 72 02/09/25 13:09 Resp 18 02/09/25 13:09 BP 120/78 02/09/25 13:09 Pulse Ox 95 02/09/25 13:09 Oxygen Delivery Method Room Air 02/09/25 13:09 BMI result Body Mass Index 17.6 Const General: No confusion Orientation/consciousness: No confusion Resp Other: dim bilat Cardio Other: s1 s2 Neuro Other: able to stand from seated position, able to tandem walk, neg rhomberg, + whisper test General: No confusion Assessment & Plan Assessment & Plan (1) Bladder cancer: Comment: 09/27 T1LG - 6 week gemcitabine induction Code(s): C67.9 - Malignant neoplasm of bladder, unspecified (2) Hematuria: Code(s): R31.9 - Hematuria, unspecified Plan: will contact urology to get him in for a followup. Will order a ct scan, urine cytology, and urine culture. (3) Screening for colon cancer: Code(s): Z12.11 - Encounter for screening for malignant neoplasm of colon (4) Encounter for annual wellness visit (AWV) in Medicare patient: Code(s): Z00.00 - Encounter for general adult medical examination without abnormal findings Plan . Orders: Orders CT abdomen pelvis wo/w IV con Today R31.9 - Hematuria, unspecified Urine Cytology Today C67.9 - Malignant neoplasm of bladder, unspecified, R31.9 - Hematuria, unspecified Urine Culture Today C67.9 - Malignant neoplasm of bladder, unspecified, R31.9 - Hematuria, unspecified Referrals Gastroenterology Referral Z12.11 - Encounter for screening for malignant neoplasm of colon Quality Reporting (2019) Depression/Bipolar (159/160/161/177) PHQ-9: Total score: 0 Coding Level of Care Code Medicare Subsequent (G0439) Est Pt Level 3 (85695) Diagnoses Bladder cancer C67.9 Hematuria R31.9 Screening for colon cancer Z12.11 Encounter for annual wellness visit (AWV) in Medicare patient Z00.00 CPT Codes Advance Care Planning - Time spent: 1-15 minutes, on File ([id number]) Additional Codes PHQ-9 - 86419 - PHQ-9 Billing: Yes ([id number]) Advance Care Planning Forms completed: Health Care Proxy (form given to pt to fill out and explained), MOLST (filled out today and in scan pile) and Living will (encouraged to get this done) Time spent: 1-15 minutes, on File Actual minutes spent: 8
[2025-02-09 13:09] VITALS: BP 120/78; PULSE 72; RESP 18; TEMP 36.4; O2SAT 95; BMI 17.6
== END 2025-02-09 14:23 | disposition home or self-care (01) ==
LOC: HO.HMCC 13:06
PROVIDERS: PCP Nurse Practitioner Family; Visit Provider Nurse Practitioner Family
DX: Z00.00 Encounter for general adult medical examination without abnormal findings (principal); C67.9 Malignant neoplasm of bladder, unspecified; R31.9 Hematuria, unspecified

== ENCOUNTER → 2025-02-09 13:05 | Outpatient (BNVA) | payer MEDICARE, SELFPAY | PROVIDERS: PCP Nurse Practitioner Family; Visit Provider Nurse Practitioner Family | DX: Z00.00 Encounter for general adult medical examination without abnormal findings (principal); R31.9 Hematuria, unspecified; C67.9 Malignant neoplasm of bladder, unspecified; Z12.11 Encounter for screening for malignant neoplasm of colon; Z13.31 Encounter for screening for depression | CPT/HCPCS: 96127 ==

== ENCOUNTER 2025-02-10 06:13 | Outpatient (REF) | payer MEDICARE, SELFPAY ==
[2025-02-10 10:26] LABS: Hematocrit 43.3 % (42.0-52.0); Hemoglobin 13.9 g/dl (14.0-18.0); Imm Gran Abs Auto 0.03 X10*3/uL (0.00-0.03); Imm Gran Pct Auto 0.2 % (0.0-0.4); MANUAL DIFF FLAG SCAN; Mean Corpuscular HGB Conc 32.1 g/dl (31.0-36.0); Mean Corpuscular Hemoglobin 32.3 pg (27.0-33.0); Mean Corpuscular Volume 100.5 fL (80.0-98.0); NRBC Abs Auto 0.000 X10*3/uL (0.0-0.012); NRBC Pct Auto 0.0 /100WBC (0.0-0.2); Platelet Count 268 X10*3/uL (160-400); Red Blood Count 4.31 X10*6/uL (4.60-5.80); SCAN SMEAR FLAG 1; White Blood Count 18.6 X10*3/uL (4.8-10.8)
[2025-02-10 10:27] LABS: Appearance Urine Cloudy; Glucose Urine UA Negative (Negative); PH 7.0 (5.0-9.0); Specific Gravity - Urine 1.010 (1.005-1.025); UMIC TRIGGER UA YES
[2025-02-10 10:30] LABS: Lymphocytes Absolute Auto 13.8 X10*3/uL (1.2-4.9)
[2025-02-10 10:57] LABS: Alanine Aminotransferase 29 U/L (0-40); Albumin Level 4.1 g/dL (3.5-5.0); Alkaline Phosphatase 99 U/L (39-117); Anion Gap 9 (12-20); Aspartate Amino Transferase 36 U/L (5-37); Blood Urea Nitrogen 11 mg/dL (9-16); Calcium 8.9 mg/dL (8.4-10.2); Carbon Dioxide 31 mmol/L (22-29); Chloride 105 mmol/L (96-108); Cholesterol 97 mg/dL (<200); Estimated Glomerular Filt Rate > 60; HDL Cholesterol 37 mg/dL (>40); Potassium 3.7 mmol/L (3.3-5.1); Sodium 141 mmol/L (135-145); Total Protein 6.6 g/dL (6.5-8.0); Triglycerides 61 mg/dL (<150)
== END 2025-02-10 06:14 | disposition home or self-care (01) ==
LOC: HO.HMGCLDS 06:13
PROVIDERS: PCP Nurse Practitioner Family; Visit Provider Nurse Practitioner Family
DX: Z12.5 Encounter for screening for malignant neoplasm of prostate (principal); C67.9 Malignant neoplasm of bladder, unspecified; I10 Essential (primary) hypertension; E55.9 Vitamin D deficiency, unspecified; R31.9 Hematuria, unspecified
CPT/HCPCS: 36415; 80053; 80061; 81001; 82306; 84153; 84443; 85025; 87086; 88112

== ENCOUNTER 2025-02-15 08:34 | Outpatient (AMB) | payer MEDICARE, SELFPAY ==
--- NOTE | 2025-02-15 08:37 | MHC.OFFVISCO ---
Intake Intake Visit Reasons: Anticoagulation Allergies No Known Allergies (No Known Allergies*) Allergy (Verified 02/15/25 08:34) Medication List - Last Reconciled 02/15/25 by Avelina Pierre RN amlodipine 5 mg PO DAILY atorvastatin 20 mg PO DAILY 90 days cholecalciferol (vitamin D3) 50 mcg PO DAILY metoprolol succinate ER 25 mg PO DAILY multivitamin (One-A-Day Essential tablet) 1 tab PO DAILY pyridoxine (vitamin B6) 100 mg PO DAILY 90 days warfarin See Protocol 1-2 tabs per INR results orally daily; Nursing Note INR: 2.9- in therapeutic range 2-3 Medications and supplements reviewed- no changes No changes in health, diet, medications, or supplements, Denies any signs and symptoms of bleeding or bruising or clotting. Bleeding, bruising, clotting discussed Nutritional guidance given Dose: 3mg x 2, 4mg x 5 F/U INR: 4 weeks Patient verbalizes understanding of instructions given Anti-Coag Initial Assessment Social Hx Patient Tobacco Use Status: Current everyday Tobacco user Tobacco use type: Cigarette Smoking packs per day: 1 alcohol intake: former (quit etoh at age 28) Cardiovascular Hx: HTN and Arrhythmias (afib) Lung Disease HX: Other (hx collapsed lung approx 30 years ago) Blood Disorder Hx: Hyperlipidemia Hx: Bladder Disorders (bladder cancer 2 years ago, hx microscopic hematuria, renal calculi) Cancer HX: Yes Coding Level of Care Code Est Patient Level 1 Diagnoses Current use of anticoagulant therapy Z79.01 Results AMB INR Fingerstick AMB INR Fingerstick 2.9 Last Edit by Avelina Pierre RN on 02/15/25 08:40 interface delay Assessment & Plan Assessment & Plan (1) Current use of anticoagulant therapy: 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
[2025-02-16 08:14] LABS: Prothrombin Time Whole Bld POC 34.4 sec (11.1-13.5); ~PT, ~INR - Anti Coag Clinic 2.9 (0.9-1.1)
== END 2025-02-15 08:44 | disposition home or self-care (01) ==
LOC: HO.ACS 08:34
PROVIDERS: PCP Nurse Practitioner Family; Visit Provider Internal Medicine Medical Oncology
DX: Z79.01 Long term (current) use of anticoagulants (principal)

== ENCOUNTER → 2025-02-15 08:34 | Outpatient (BNVA) | payer MEDICARE, SELFPAY | PROVIDERS: PCP Nurse Practitioner Family; Visit Provider Internal Medicine Medical Oncology | DX: Z79.01 Long term (current) use of anticoagulants (principal) | CPT/HCPCS: 85610; 99211 ==